=== PATIENT | female | born 1950 | race Caucasian/White ===

== ENCOUNTER 2021-09-01 10:07 | Outpatient (REF) | payer MEDICARE, OTHER, SELFPAY ==
--- NOTE | ~2021-09-01 | XR_ITS ---
EXAMINATION: XR CHEST CLINICAL INFORMATION: Cough. COMPARISON: None TECHNIQUE: 2 views of the chest were obtained. FINDINGS: The lungs are expanded with increased pulmonary vascularity but no consolidation or pleural effusion. The heart size enlarged. No gross bony abnormality seen. XR/XR chest 2V IMPRESSION: Cardiomegaly with mild pulmonary vascular congestion suspected.
[2021-09-01 11:50] LABS: Hematocrit 41.9 % (37-47); Hemoglobin 13.2 g/dl (12.0-16.0); Mean Corpuscular HGB Conc 31.5 g/dl (31.0-35.0); Mean Corpuscular Hemoglobin 27.2 pg (27.0-33.0); Mean Corpuscular Volume 86.2 fL (80-98); Mean Platelet Volume 9.9 fL (9.4-12.3); Platelet Count 314 X10*3/uL (160-400); Red Blood Count 4.86 X10*6/uL (4.20-5.50); Red Cell Distribution Width 15.3 % (11.0-16.0); White Blood Count 7.7 X10*3/uL (4.8-10.8)
[2021-09-01 12:06] LABS: Alanine Aminotransferase 8 U/L (0-31); Alkaline Phosphatase 74 U/L (39-117); Anion Gap 14 (12-20); Aspartate Amino Transferase 19 U/L (5-31); Bilirubin Total 0.4 mg/dL (0.0-1.0); Blood Urea Nitrogen 11 mg/dL (9-16); Calcium 9.7 mg/dL (8.4-10.2); Carbon Dioxide 23 mmol/L (22-29); Chloride 110 mmol/L (96-108); Cholesterol 155 mg/dL; Estimated Glomerular Filt Rate > 60; Glucose Random 80 mg/dL (60-115); HDL Cholesterol 40 mg/dL; LDL Cholesterol Calculated 87 mg/dl; Potassium 4.1 mmol/L (3.3-5.1); Sodium 143 mmol/L (135-145); Total Protein 6.8 g/dL (6.5-8.0); Triglycerides 141 mg/dL
[2021-09-01 12:19] LABS: Thyroid Stimulating Hormone 1.75 uIU/mL (0.32-4.0)
== END 2021-09-01 10:08 | disposition home or self-care (01) ==
LOC: HO.HMGCLDS 10:07
PROVIDERS: PCP Internal Medicine; Visit Provider Internal Medicine
DX: E78.2 Mixed hyperlipidemia (principal); I10 Essential (primary) hypertension; R05.9 Cough, unspecified
CPT/HCPCS: 36415; 71046; 80053; 80061; 84443; 85027

== ENCOUNTER 2021-09-14 10:51 | Outpatient (REF) | payer MEDICARE, OTHER, SELFPAY ==
[2021-09-14 14:33] LABS: Anion Gap 15 (12-20); B Type Natriuretic Peptide 356 pg/mL (<100); Blood Urea Nitrogen 13 mg/dL (9-16); Calcium 8.9 mg/dL (8.4-10.2); Carbon Dioxide 23 mmol/L (22-29); Chloride 107 mmol/L (96-108); Estimated Glomerular Filt Rate > 60; Glucose Random 82 mg/dL (60-115); Potassium 4.2 mmol/L (3.3-5.1); Sodium 141 mmol/L (135-145)
[2021-09-17 12:21] LABS: Magnesium, RBC 5.6 mg/dL (4.0-6.4)
== END 2021-09-14 10:52 | disposition home or self-care (01) ==
LOC: HO.HMGCLDS 10:51
PROVIDERS: Absent Provider Internal Medicine; PCP Internal Medicine; Visit Provider Internal Medicine
DX: Z20.822 Contact with and (suspected) exposure to COVID-19 (principal); I10 Essential (primary) hypertension; R06.00 Dyspnea, unspecified
CPT/HCPCS: 36415; 80048; 83735; 83880; C9803; U0003; U0005

== ENCOUNTER → 2021-10-06 10:19 | Outpatient (REF) | payer MEDICARE, OTHER, SELFPAY ==
--- NOTE | 2021-10-06 10:30 | CA_ITS ---
Transthoracic Echocardiogram Patient (Last, First, Middle): Tg Luong, Gender: Female Date of : 1950 Age: 70 Procedure Date: 10/06/2021 Procedure Type: Transthoracic Echocardiogram Location: OP Height: 165.1 cm Weight: 90.27 kg BSA: 1.97 m2 Heart Rate: bpm BP: 180 / 86 mmHg Manager Business Process: MEMO Referring MD: Mann Servin MD Biomedical Electronics Technician: Jim Cantu MD Symptoms: VELEZ R06.00 Study Quality: Fair ECG Rhythm: Sinus Conclusions: - 1. Normal LV systolic function with moderate left ventricular hypertrophy with hyperdynamic LV systolic function with EF of greater than 70% with impaired relaxation filling pattern with reduced global longitudinal strain 2. Increased right ventricular size 3. Mildly dilated left atrium 4. Moderate mitral and calcification and mild mitral regurgitation 5. Moderately elevated right ventricular systolic pressure 6. Small localized pericardial effusion near the Findings Left Ventricle Normal left ventricular cavity size. There is moderately increased left ventricular wall thickness. The left ventricular systolic function is hyperdynamic. The visually estimated ejection fraction is >70%. Regional wall motion abnormalities can not be excluded duer to suboptimal endocardial definition. Spectral Doppler is indicative of an impaired relaxation filling pattern. E/E prime ratio is between 8 and 15 consistent with indeterminate filling pressures. Peak global longitudinal endocardial strain is -14% which is reduced Right Ventricle Moderately increased right ventricular cavity size. There is normal right ventricular systolic function. Atria The left atrium is mildly dilated. Interatrial shunt cannot be excluded. The right atrium is likely dilated. Aortic Valve Normal aortic valve structure and function. There is no aortic valve stenosis. There is no aortic valve regurgitation. Mitral Valve There is mild anterior and moderate posterior mitral leaflet thickening. There is moderate mitral annular calcification. There is mild mitral valve regurgitation. There is no mitral valve stenosis. Pulmonic Valve The pulmonic valve was not well visualized. Tricuspid Valve Likely normal tricuspid valve structure and function. There is mild tricuspid valve regurgitation. Moderate pulmonary hypertension is present. Great Vessels All visible segments of the aorta are normal in size. The pulmonary artery was not well visualized. Venous The inferior vena cava is normal in size and collapses greater than 50% with inspiration. Pericardium/Pleural There is a small loculated pericardial effusion overlying the left ventricle. Prior Study Comparison No prior study available for comparison. Measurements 2D Linear Measurements IVSd: 1.51 0.6-0.9/0.6-1.0 cm LVIDd: 4.36 3.9-5.3/4.2-5.9 cm LVIDd Index: 2.21 2.4-3.2/2.2-3.1 cm/m2 LVIDs: 2.59 2.0-3.6 cm LVPWd: 1.53 0.7-1.1 cm Ao Root: 3.10 2.1-3.5 cm LA Diam: 4.10 2.7-3.8/3.0-4.0 cm LAIDs Index: 2.08 1.5-2.3 cm/m2 LV Mass: 335.24 67-162/88-224 g LV Mass Index: 170.17 43-95/49-115 g/m2 LVOT Diam: 2.10 3.0+(-)1.3 cm 2D Systolic Function EF 4C: 82.70 >55% EF 2C: 49.80 >55% EF BiP: 70.50 >55% Mitral Valve MV Pk E: 0.78 MV PK A: 0.93 MV Decel Time: 114.00 E/A: 0.80 E'Lateral: 6.53 E'Medial: 4.79 E/E' Med: 16.20 E/E' Lat: 11.90 PHT: 33.00 MVA PHT: 6.67 Decel [place]ton: 6.85 Aortic Valve AoV Pk Ben: 1.09 AoV Pk Grad: 5.00 LVOT LVOT Pk Ben: 1.02 LVOT Mn Ben: 0.69 LVOT VTI: 0.24 LVOT Pk Grad: 4.00 LVOT Mn Grad: 2.00 LVOT Diam: 2.10 LVOT Area: 3.46 Diastolic Function MV Pk E: 0.78 MV Pk A: 0.93 E/A: 0.80 E'Medial: 4.79 E/E' Med: 16.20 E' Laterial: 6.53 E/E' Lat: 11.90 Right Ventricle TAPSE (mm): 1.91 Tricuspid Valve TR Pk Ben: 358.00 TR Pk Grad: 51.00 RA Press: 3.00 RVSP: 54.00 Great Vessels Aorta Ao Root-2D: 3.10 2.0-3.7 cm Ao Asc: 3.40 2.1-3.4 cm Updated in Other Vendor System with Status of Final Jim Cantu MD electronically signed on 10/06/2021 4:39:07 PM with status of Final
== END ==
LOC: HO.CARD 10:19
PROVIDERS: Visit Provider Internal Medicine
DX: R06.00 Dyspnea, unspecified (principal)
CPT/HCPCS: 93306

== ENCOUNTER 2021-10-22 13:42 | Outpatient (REF) | payer MEDICARE, OTHER, SELFPAY ==
--- NOTE | 2021-10-22 | PFT_ITS ---
FLOWS: FEV1 75% of predicted at 1.72 L. FVC 70% of predicted at 2.13 L. FEV1 to FVC ratio of 0.81. No bronchodilator response. LUNG VOLUMES: Total lung capacity 68% of predicted at 3.56 L. Residual volume 57% of predicted at 1.33 L. Slow vital capacity 76% of predicted at 2.23 L. Expiratory reserve volume 69% of predicted at 0.48 L. Diffusion capacity is moderately decreased, diffusion capacity adjust to being mildly decreased after correction for alveolar ventilation. IMPRESSION: Moderate restrictive ventilatory defect with no bronchodilator response. Decreased diffusion capacity together with underlying restrictive lung physiology suggests underlying pulmonary parenchymal disease. Clinical correlation is advised. Deyvi Joshua MD AP/MODL / [id number] MTDD
== END 2021-10-22 13:43 | disposition home or self-care (01) ==
LOC: HO.RESP 13:42
PROVIDERS: PCP Internal Medicine; Visit Provider Internal Medicine
DX: R06.00 Dyspnea, unspecified (principal)
CPT/HCPCS: 94060; 94727; 94729

== ENCOUNTER 2021-11-24 09:19 | Outpatient (REF) | payer MEDICARE, OTHER, SELFPAY ==
--- NOTE | ~2021-11-24 | CT_ITS ---
EXAMINATION: CT CHEST WITHOUT CONTRAST CLINICAL INFORMATION: Interstitial pulmonary disease. COMPARISON: Chest x-ray 09/01/2021 TECHNIQUE: Multidetector volumetric CT imaging of the chest was done. Axial MIP volume rendering provided. Sagittal and coronal reformatted images were obtained. This CT examination was performed using dose optimization techniques as appropriate, variously including the following: *Automated exposure control *Adjustment of mA and/or kV according to patient size (this includes techniques or standardized protocols for targeted exams where dose is matched to indication/reason for exam; i.e. extremities or head) *Use of iterative reconstruction technique DLP: 175 mGy-cm FINDINGS: The exam is limited due to patient breathing artifact throughout the exam. DRIVER MEDIC: Hyperinflated lungs. LUNGS: The lungs are well expanded and clear of acute pneumonic process. There is patchy density in the superior segment and posterior segment of the right lower lobe, likely focal atelectasis. There is no pulmonary nodule, mass or consolidation. No interstitial thickening, bronchiectasis or peribronchial thickening. Minimal dependent atelectasis is seen at the left lung base as well. MEDIASTINUM: Heart size is borderline enlarged. There are coronary artery calcifications. There is no pericardial effusion. Central trachea and the bronchi are widely patent. The thyroid lobes are symmetrical and unremarkable. No abnormal-sized mediastinal or hilar lymph nodes are seen. PLEURA: There is no pleural effusion. No pleural mass or thickening. AXILLAE: Small shotty lymph nodes are seen in the bilateral axillae. The largest lymph node measures 6 mm and less. UPPER ABDOMEN: Visualized liver, spleen, pancreas, bilateral adrenal glands and gallbladder appear unremarkable. OSSEOUS STRUCTURES: There is mild ventral spondylosis of the lower dorsal spine. No aggressive lytic or sclerotic process is seen. CT/CT chest wo con IMPRESSION: Limited exam due to patient breathing throughout the exam. There is dependent bibasilar atelectasis. No pulmonary nodule, mass, consolidation or interstitial thickening seen. Fleischner guidelines were followed.
== END 2021-11-24 09:20 | disposition home or self-care (01) ==
LOC: HO.CT 09:19
PROVIDERS: Visit Provider Internal Medicine
DX: J84.9 Interstitial pulmonary disease, unspecified (principal)
CPT/HCPCS: 71250

== ENCOUNTER → 2021-12-17 09:44 | Outpatient (BNVA) | payer MEDICARE, OTHER, SELFPAY | PROVIDERS: PCP Internal Medicine; Visit Provider Internal Medicine | DX: J98.4 Other disorders of lung (principal); R06.00 Dyspnea, unspecified; F17.210 Nicotine dependence, cigarettes, uncomplicated | CPT/HCPCS: 99202 ==

== ENCOUNTER → 2022-02-15 13:23 | Outpatient (BNVA) | payer MEDICARE, OTHER, SELFPAY | PROVIDERS: PCP Internal Medicine; Visit Provider Internal Medicine | DX: J98.4 Other disorders of lung (principal); R06.00 Dyspnea, unspecified; F17.210 Nicotine dependence, cigarettes, uncomplicated | CPT/HCPCS: 99212 ==

== ENCOUNTER 2022-03-24 08:58 | Outpatient (REF) | payer MEDICARE, OTHER, SELFPAY ==
[2022-03-24 11:40] LABS: MANUAL DIFF FLAG NO
[2022-03-24 11:45] LABS: Basophils Absolute Auto 0.1 X10*3/uL (0.0-0.2); Basophils Percent Auto 0.7 % (0-2); Eosinophils Absolute Auto 0.5 X10*3/uL (0.0-0.4); Eosinophils Percent Auto 5.2 % (0-4); Hematocrit 38.3 % (37.0-47.0); Hemoglobin 11.9 g/dl (12.0-16.0); Imm Gran Abs Auto 0.04 X10*3/uL (0.00-0.03); Imm Gran Pct Auto 0.5 % (0.0-0.4); Lymphocytes Absolute Auto 2.2 X10*3/uL (1.2-4.9); Lymphocytes Percent Auto 24.8 % (20-40); Mean Corpuscular HGB Conc 31.1 g/dl (31.0-35.0); Mean Corpuscular Hemoglobin 26.9 pg (27.0-33.0); Mean Corpuscular Volume 86.7 fL (80.0-98.0); Mean Platelet Volume 10.3 fL (9.4-12.3); Monocytes Absolute Auto 0.9 X10*3/uL (0.1-1.2); Monocytes Percent Auto 10.3 % (2-11); Neutrophils Absolute Auto 5.1 x10*3/uL (2.0-8.3); Neutrophils Percent Auto 58.5 % (45-73); Platelet Count 278 X10*3/uL (160-400); Red Blood Count 4.42 X10*6/uL (4.20-5.50); Red Cell Distribution Width 13.9 % (11.0-16.0); White Blood Count 8.7 X10*3/uL (4.8-10.8)
[2022-03-24 11:58] LABS: Alanine Aminotransferase 11 U/L (0-31); Albumin Level 3.9 g/dL (3.5-5.0); Alkaline Phosphatase 70 U/L (39-117); Anion Gap 14 (12-20); Aspartate Amino Transferase 18 U/L (5-31); Bilirubin Total 0.3 mg/dL (0.0-1.0); Blood Urea Nitrogen 17 mg/dL (9-16); Calcium 9.8 mg/dL (8.4-10.2); Carbon Dioxide 25 mmol/L (22-29); Chloride 106 mmol/L (96-108); Cholesterol 158 mg/dL; Estimated Glomerular Filt Rate 40; Glucose Random 95 mg/dL (60-115); HDL Cholesterol 46 mg/dL; LDL Cholesterol Calculated 91 mg/dl; Magnesium 1.9 mg/dL (1.6-2.6); Potassium 4.6 mmol/L (3.3-5.1); Sodium 140 mmol/L (135-145); Total Protein 6.5 g/dL (6.5-8.0); Triglycerides 108 mg/dL
[2022-03-24 12:21] LABS: Thyroid Stimulating Hormone 3.55 uIU/mL (0.32-4.0)
== END 2022-03-24 08:59 | disposition home or self-care (01) ==
LOC: HO.HMGCLDS 08:58
PROVIDERS: PCP Internal Medicine; Visit Provider Internal Medicine
DX: E78.2 Mixed hyperlipidemia (principal); I10 Essential (primary) hypertension
CPT/HCPCS: 36415; 80053; 80061; 83735; 84443; 85025

== ENCOUNTER 2022-05-11 10:20 | Outpatient (REF) | payer MEDICARE, OTHER, SELFPAY ==
[2022-05-11 11:39] LABS: Anion Gap 12 (12-20); Blood Urea Nitrogen 21 mg/dL (9-16); Calcium 9.2 mg/dL (8.4-10.2); Carbon Dioxide 23 mmol/L (22-29); Chloride 105 mmol/L (96-108); Estimated Glomerular Filt Rate 35; Glucose Random 113 mg/dL (60-115); Potassium 4.4 mmol/L (3.3-5.1); Sodium 136 mmol/L (135-145)
== END 2022-05-11 10:21 | disposition home or self-care (01) ==
LOC: HO.LAB 10:20
PROVIDERS: PCP Internal Medicine; Visit Provider Internal Medicine
DX: I12.9 Hypertensive chronic kidney disease with stage 1 through stage 4 chronic kidney disease, or unspecified chronic kidney disease (principal); N18.30 Chronic kidney disease, stage 3 unspecified
CPT/HCPCS: 36415; 80048

== ENCOUNTER 2022-06-16 15:47 | Outpatient (REF) | payer MEDICARE, OTHER, SELFPAY ==
--- NOTE | ~2022-06-16 | US_ITS ---
EXAMINATION: US RETROPERITONEAL COMPLETE (RENAL) CLINICAL INFORMATION: Hypertension. Chronic renal failure. COMPARISON: None TECHNIQUE: Real-time imaging of the kidneys and bladder. FINDINGS: RIGHT KIDNEY: 9.0 x 4.3 x 5.2 cm (SAG x AP x TRV). No hydronephrosis or caliectasis. The kidney is normal in size, contour, and echogenicity. Renal cortical thickness is normal. No focal parenchymal lesion. There are scattered specular echoes in the renal sinus and parenchyma without twinkling artifact or shadowing to suggest nonobstructing calculi. LEFT KIDNEY: 9.5 x 4.9 x 4.5 cm (SAG x AP x TRV). No hydronephrosis or caliectasis. The kidney is normal in size, contour, and echogenicity. Renal cortical thickness is normal. No focal parenchymal lesion. There are scattered specular echoes in the renal sinus and parenchyma without twinkling artifact or shadowing to suggest nonobstructing calculi. BLADDER: Bladder is distended symmetrically. There is no focal wall thickening or diverticulum. No bladder calculus or debris at bladder base. Bilateral ureteral jets are demonstrated. Prevoid bladder volume 151 mL. No post void image obtained. US/US retroperitoneal comp IMPRESSION: -No hydronephrosis or caliectasis. -Kidneys normal in size with normal renal parenchymal thickness and echogenicity.
== END 2022-06-16 15:48 | disposition home or self-care (01) ==
LOC: HO.US 15:47
PROVIDERS: Visit Provider Internal Medicine
DX: N18.32 Chronic kidney disease, stage 3b (principal)
CPT/HCPCS: 76770

== ENCOUNTER 2022-06-29 10:11 | Outpatient (REF) | payer MEDICARE, OTHER, SELFPAY ==
[2022-06-29 11:06] LABS: Anion Gap 15 (12-20); Blood Urea Nitrogen 18 mg/dL (9-16); Carbon Dioxide 24 mmol/L (22-29); Chloride 101 mmol/L (96-108); Estimated Glomerular Filt Rate 44; Glucose Random 116 mg/dL (60-115); Potassium 4.5 mmol/L (3.3-5.1); Sodium 135 mmol/L (135-145)
== END 2022-06-29 10:12 | disposition home or self-care (01) ==
LOC: HO.LAB 10:11
PROVIDERS: PCP Internal Medicine; Visit Provider Internal Medicine
DX: I12.9 Hypertensive chronic kidney disease with stage 1 through stage 4 chronic kidney disease, or unspecified chronic kidney disease (principal); N18.30 Chronic kidney disease, stage 3 unspecified
CPT/HCPCS: 36415; 80048

== ENCOUNTER 2022-09-14 10:09 | Outpatient (REF) | payer MEDICARE, OTHER, SELFPAY ==
[2022-09-14 10:34] LABS: MANUAL DIFF FLAG NO
[2022-09-14 11:04] LABS: Basophils Percent Auto 0.4 % (0-2); Eosinophils Absolute Auto 0.3 X10*3/uL (0.0-0.4); Eosinophils Percent Auto 3.3 % (0-4); Hematocrit 34.7 % (37.0-47.0); Hemoglobin 10.8 g/dl (12.0-16.0); Imm Gran Abs Auto 0.04 X10*3/uL (0.00-0.03); Imm Gran Pct Auto 0.5 % (0.0-0.4); Lymphocytes Absolute Auto 1.6 X10*3/uL (1.2-4.9); Lymphocytes Percent Auto 20.7 % (20-40); Mean Corpuscular HGB Conc 31.1 g/dl (31.0-35.0); Mean Corpuscular Hemoglobin 25.2 pg (27.0-33.0); Mean Corpuscular Volume 81.1 fL (80.0-98.0); Mean Platelet Volume 9.7 fL (9.4-12.3); Monocytes Absolute Auto 0.8 X10*3/uL (0.1-1.2); Monocytes Percent Auto 9.7 % (2-11); Neutrophils Absolute Auto 5.2 x10*3/uL (2.0-8.3); Neutrophils Percent Auto 65.4 % (45-73); Platelet Count 254 X10*3/uL (160-400); Red Blood Count 4.28 X10*6/uL (4.20-5.50); Red Cell Distribution Width 15.8 % (11.0-16.0); White Blood Count 7.9 X10*3/uL (4.8-10.8)
[2022-09-14 11:37] LABS: Alanine Aminotransferase 11 U/L (0-31); Albumin Level 3.9 g/dL (3.5-5.0); Alkaline Phosphatase 79 U/L (39-117); Anion Gap 16 (12-20); Aspartate Amino Transferase 18 U/L (5-31); Bilirubin Total 0.3 mg/dL (0.0-1.0); Blood Urea Nitrogen 15 mg/dL (9-16); Calcium 9.3 mg/dL (8.4-10.2); Carbon Dioxide 22 mmol/L (22-29); Chloride 107 mmol/L (96-108); Estimated Glomerular Filt Rate 45; Glucose Random 92 mg/dL (60-115); Potassium 4.4 mmol/L (3.3-5.1); Sodium 141 mmol/L (135-145); Total Protein 6.5 g/dL (6.5-8.0)
== END 2022-09-14 10:10 | disposition home or self-care (01) ==
LOC: HO.LAB 10:09
PROVIDERS: PCP Internal Medicine; Visit Provider Internal Medicine
DX: I12.9 Hypertensive chronic kidney disease with stage 1 through stage 4 chronic kidney disease, or unspecified chronic kidney disease (principal); N18.32 Chronic kidney disease, stage 3b; K21.9 Gastro-esophageal reflux disease without esophagitis; M15.9 Polyosteoarthritis, unspecified
CPT/HCPCS: 36415; 80053; 85025

== ENCOUNTER 2022-10-01 10:11 | Outpatient (REF) | payer MEDICARE, OTHER, SELFPAY ==
[2022-10-01 11:34] LABS: MANUAL DIFF FLAG NO
[2022-10-01 11:45] LABS: Basophils Absolute Auto 0.1 X10*3/uL (0.0-0.2); Basophils Percent Auto 0.7 % (0-2); Eosinophils Absolute Auto 0.3 X10*3/uL (0.0-0.4); Eosinophils Percent Auto 3.9 % (0-4); Imm Gran Abs Auto 0.03 X10*3/uL (0.00-0.03); Imm Gran Pct Auto 0.4 % (0.0-0.4); Immature Retic Fraction 23.5 % (3.0-15.9); Lymphocytes Absolute Auto 1.9 X10*3/uL (1.2-4.9); Lymphocytes Percent Auto 25.3 % (20-40); Mean Corpuscular HGB Conc 30.6 g/dl (31.0-35.0); Mean Corpuscular Hemoglobin 24.8 pg (27.0-33.0); Mean Corpuscular Volume 81.3 fL (80.0-98.0); Mean Platelet Volume 9.7 fL (9.4-12.3); Monocytes Absolute Auto 0.7 X10*3/uL (0.1-1.2); Monocytes Percent Auto 9.5 % (2-11); Neutrophils Absolute Auto 4.5 x10*3/uL (2.0-8.3); Neutrophils Percent Auto 60.2 % (45-73); Platelet Count 272 X10*3/uL (160-400); Red Blood Count 4.43 X10*6/uL (4.20-5.50); Red Cell Distribution Width 15.7 % (11.0-16.0); Retic HGB Equivalent 27.8 pg (30.0-35.0); Reticulocyte Percent 2.1 % (0.5-1.8); Reticulocytes Absolute 0.092 X10*6/uL (0.026-0.095); White Blood Count 7.5 X10*3/uL (4.8-10.8)
[2022-10-01 12:01] LABS: Iron 41 mcg/dL (30-160); Percent Iron Saturation 13 % (15-50); Total Iron Binding Capacity 327 mcg/dL (228-428); Unsaturated Iron Binding 286 ug/dL
[2022-10-01 12:17] LABS: Ferritin 19 ng/mL (10-250)
[2022-10-01 13:47] LABS: Vitamin B12 204 pg/mL (200-900)
== END 2022-10-01 10:12 | disposition home or self-care (01) ==
LOC: HO.HMGCLDS 10:11
PROVIDERS: PCP Internal Medicine; Visit Provider Internal Medicine
DX: D64.9 Anemia, unspecified (principal)
CPT/HCPCS: 36415; 82607; 82728; 82746; 83540; 85025; 85045

== ENCOUNTER 2022-12-01 09:06 | Outpatient (REF) | payer MEDICARE, OTHER, SELFPAY ==
[2022-12-01 11:43] LABS: MANUAL DIFF FLAG NO
[2022-12-01 11:54] LABS: Basophils Percent Auto 0.3 % (0-2); Eosinophils Absolute Auto 0.3 X10*3/uL (0.0-0.4); Eosinophils Percent Auto 3.9 % (0-4); Hematocrit 37.6 % (37.0-47.0); Hemoglobin 11.7 g/dl (12.0-16.0); Imm Gran Abs Auto 0.02 X10*3/uL (0.00-0.03); Imm Gran Pct Auto 0.3 % (0.0-0.4); Lymphocytes Absolute Auto 1.9 X10*3/uL (1.2-4.9); Lymphocytes Percent Auto 24.8 % (20-40); Mean Corpuscular HGB Conc 31.1 g/dl (31.0-35.0); Mean Corpuscular Hemoglobin 25.3 pg (27.0-33.0); Mean Corpuscular Volume 81.4 fL (80.0-98.0); Monocytes Absolute Auto 0.7 X10*3/uL (0.1-1.2); Monocytes Percent Auto 9.3 % (2-11); Neutrophils Absolute Auto 4.6 x10*3/uL (2.0-8.3); Neutrophils Percent Auto 61.4 % (45-73); Platelet Count 242 X10*3/uL (160-400); Red Blood Count 4.62 X10*6/uL (4.20-5.50); Red Cell Distribution Width 16.9 % (11.0-16.0); White Blood Count 7.5 X10*3/uL (4.8-10.8)
[2022-12-01 12:32] LABS: Ferritin 18 ng/mL (10-250); Vitamin B12 779 pg/mL (200-900)
[2022-12-05 15:53] LABS: Methylmalonic Acid 257 nmol/L (87-318)
== END 2022-12-01 09:07 | disposition home or self-care (01) ==
LOC: HO.HMGCLDS 09:06
PROVIDERS: PCP Internal Medicine; Visit Provider Internal Medicine
DX: D64.9 Anemia, unspecified (principal)
CPT/HCPCS: 36415; 82607; 82728; 83921; 85025

== ENCOUNTER 2023-07-12 10:09 | Outpatient (REF) | payer MEDICARE, OTHER, SELFPAY ==
[2023-07-12 11:01] LABS: Anion Gap 15 (12-20); Blood Urea Nitrogen 19 mg/dL (9-16); Calcium 9.5 mg/dL (8.4-10.2); Carbon Dioxide 20 mmol/L (22-29); Chloride 98 mmol/L (96-108); Estimated Glomerular Filt Rate 40; Glucose Random 130 mg/dL (60-115); Potassium 4.8 mmol/L (3.3-5.1); Sodium 128 mmol/L (135-145)
== END 2023-07-12 10:10 | disposition home or self-care (01) ==
LOC: HO.LAB 10:09
PROVIDERS: PCP Internal Medicine; Visit Provider Internal Medicine
DX: I10 Essential (primary) hypertension (principal)
CPT/HCPCS: 36415; 80048

== ENCOUNTER 2023-07-19 12:31 | Outpatient (REF) | payer MEDICARE, OTHER, SELFPAY ==
[2023-07-19 16:43] LABS: Anion Gap 10 (12-20); Blood Urea Nitrogen 28 mg/dL (9-16); Calcium 9.8 mg/dL (8.4-10.2); Carbon Dioxide 22 mmol/L (22-29); Chloride 102 mmol/L (96-108); Estimated Glomerular Filt Rate 37; Glucose Random 72 mg/dL (60-115); Potassium 4.6 mmol/L (3.3-5.1); Sodium 129 mmol/L (135-145)
== END 2023-07-19 12:32 | disposition home or self-care (01) ==
LOC: HO.HMGCLDS 12:31
PROVIDERS: PCP Internal Medicine; Visit Provider Nurse Practitioner Family
DX: R79.89 Other specified abnormal findings of blood chemistry (principal)
CPT/HCPCS: 36415; 80048

== ENCOUNTER 2023-09-02 18:03 | Inpatient (IN) | payer MEDICARE, OTHER, SELFPAY ==
--- NOTE | ~2023-09-02 | US_ITS ---
EXAMINATION: US RETROPERITONEAL LIMITED (RENAL ONLY) CLINICAL INFORMATION: Evaluate for obstruction. COMPARISON: None available. TECHNIQUE: Real-time grayscale and color images of the right kidney were obtained. Technical limitation secondary to patient breathing. FINDINGS: RIGHT KIDNEY: 9.2 x 4.6 x 4.9 cm (SAG x AP x TRV). The kidney is normal in size, contour, and echogenicity. Renal cortical thickness is normal. No calculi or focal parenchymal lesions. No hydronephrosis. LEFT KIDNEY: 10.7 x 4.8 x 4.2 cm (SAG x AP x TRV). The kidney is normal in size, contour, and echogenicity. Renal cortical thickness is normal. No calculi or focal parenchymal lesions. No hydronephrosis. ADDITIONAL FINDINGS: Mildly prominent gallbladder without calculus. US/US renal BI IMPRESSION: 1. No nephrolithiasis or hydronephrosis. 2. Mildly prominent gallbladder without calculus.
--- NOTE | ~2023-09-02 | XR_ITS ---
EXAMINATION: XR CHEST CLINICAL INFORMATION: Shortness of breath COMPARISON: CT chest 09/03/2023. Radiograph chest 1020 22,023. TECHNIQUE: Frontal view of the chest was obtained. FINDINGS: There is no gross pneumothorax. Redemonstration of enlarged cardiac silhouette. Trace left pleural effusion again seen. Diffuse interstitial opacities and prominence of the vasculature similar in appearance, possibly representing edema, although pneumonia could also contribute to this appearance. XR/XR chest 1V IMPRESSION: Trace left pleural effusion again seen. Diffuse interstitial opacities and prominence of the vasculature similar in appearance, possibly representing edema, although pneumonia could also contribute to this appearance.
--- NOTE | ~2023-09-02 | XR_ITS ---
EXAMINATION: XR CHEST CLINICAL INFORMATION: Shortness of breath COMPARISON: 09/01/2021 TECHNIQUE: Frontal view of the chest was obtained. FINDINGS: Moderate cardiomegaly with changes of mild CHF. Trace pleural effusion at the left base suspected. No focal infiltrate. XR/XR chest 1V IMPRESSION: Mild CHF.
--- NOTE | ~2023-09-02 | CT_ITS ---
EXAMINATION: CT CHEST WITHOUT CONTRAST CLINICAL INFORMATION: Shortness of breath. Covid positive. COMPARISON: Portions of a previous CT 11/24/21 TECHNIQUE: Multidetector volumetric CT imaging of the chest was done. Axial MIP volume rendering provided. Sagittal and coronal reformatted images were obtained. This CT examination was performed using dose optimization techniques as appropriate, variously including the following: *Automated exposure control *Adjustment of mA and/or kV according to patient size (this includes techniques or standardized protocols for targeted exams where dose is matched to indication/reason for exam; i.e. extremities or head) *Use of iterative reconstruction technique The technologist indicates the patient was unable to suspend respirations DLP: 324 mGy-cm FINDINGS: There is significant motion artifact which limits detail. RAILROAD WORKER: Multiple devices overlie the patient. Prominent cardiac silhouette. Diffuse pulmonary opacities. LUNGS: No large abnormality in the central airways. Motion precludes detailed assessment of the lungs. There are lung base abnormalities. There are some juxtapleural opacities in the superior segment of the right lower lobe. There are a few reticular and polygonal juxtapleural opacities in the posterior upper lung zones. Although artifact limits detail there may be slight interval worsening when compared to 11/24/21 MEDIASTINUM: No measurably enlarged lymph nodes. Probable small hiatal hernia. The heart is enlarged. There is at least a small amount of pericardial fluid. This measures 1.7 cm transversely posterior to left ventricle. This has increased when compared to 11/24/21. The main pulmonary artery is mildly dilated. Previously there was a fairly well-defined oval fluid attenuating structure adjacent to lower right side of the mediastinum. This is no longer well defined. Correlate with any intervention. CORONARY ARTERY CALCIFICATION: Marked coronary calcification or coronary stents. PLEURA: There is some fibrocalcific change in the right apex. There is no significant pleural fluid. There is no pneumothorax AXILLA: No lymphadenopathy. UPPER ABDOMEN: Motion limits assessment. Severe arterial calcification in the visualized upper abdomen and celiac axis. OSSEOUS STRUCTURES: Limited bone detail CT/CT chest wo IV con IMPRESSION: Limited study. Scattered primarily juxtapleural bilateral pulmonary opacities. Motion limits assessment but there may be slight interval worsening. Increasing but still relatively small pericardial fluid collection. Fleischner guidelines were followed.
[2023-09-02 18:09] VITALS: BP 129/69; PULSE 107; RESP 42; TEMP 38; O2SAT 89; BMI 34.1
--- NOTE | 2023-09-02 18:10 | ED_ITS ---
HPI - SOB/Dyspnea General Chief Complaint: Dyspnea Stated Complaint: SOB Time Seen by Provider: 09/02/23 18:05 Source: patient Mode of arrival: EMS Limitations: no limitations History of Present Illness HPI Narrative: Patient is 72 years old with history of smoking, restrictive lung disease and exertional dyspnea normal LV functions in the echo 10/04 comes here for increased shortness of breath since yesterday got worse prior to patient was tachypneic saturating 90% at room air placed on CPAP by EMS denies any chest pain/palpitation patient was placed on BiPAP on arrival now she is on 2 L saturating 96% at room patient noticed she is making less urine for last few days patient been having dry cough for last few days Related Data Home Medications Medication Instructions Recorded Confirmed alprazolam 1 mg tablet 1 mg PO BEDTIME PRN Anxiety 12/17/21 09/02/23 doxazosin 2 mg tablet 2 mg PO BID 12/17/21 09/02/23 furosemide 20 mg tablet 20 mg PO DAILY 12/17/21 09/02/23 metoprolol tartrate 50 mg tablet 50 mg PO BID 12/17/21 09/02/23 olmesartan 40 mg tablet 40 mg PO DAILY 12/17/21 09/02/23 albuterol sulfate 90 mcg/actuation 2 puff inhalation Q4H PRN wheezing 09/02/23 09/02/23 aerosol inhaler cyanocobalamin (vitamin B-12) 1,000 mcg PO DAILY 09/02/23 09/02/23 1,000 mcg tablet hydralazine 10 mg tablet 10 mg PO TID 09/02/23 09/02/23 ketoconazole 2 % topical cream 1 appl topical BID 09/02/23 09/02/23 nifedipine 60 mg tablet,extended 60 mg PO DAILY 09/02/23 09/02/23 release 24 hr Allergies Allergy/AdvReac Type Severity Reaction Status Date / Time pollen extracts Allergy Mild mild Verified 02/15/22 13:52 [facility] Past Medical History Medical History Exertional dyspnea Restrictive lung disease Smoker Social History Social History Alcohol intake: never Patient Tobacco Use Status: Current everyday Tobacco user Cigarette Packs Per Day: 0.5 Cigarettes Per Day: 4 Years Smoked: 53 Smoked in Last 30 Days: Yes Use of substances other than those prescribed or required for medical reasons: No Advance Directives: No Physical Exam 2 Vital Signs: Vital Signs: Last Vital Signs Temp 98.9 F 09/02/23 22:43 Pulse 100 09/02/23 22:43 Resp 18 09/02/23 22:43 BP 120/60 09/02/23 22:43 Pulse Ox 98 09/02/23 22:43 O2 Del Method Nasal Cannula 09/02/23 22:43 O2 Flow Rate 2 09/02/23 22:43 BMI result Body Mass Index 34.1 Appearance: Alert. Oriented X3. Tachypneic moderate short of breath Eyes: PERRLA, No Nystagmus ENT: Pharynx normal. Oral Mucosa moist Neck: Normal inspection. Neck supple. CVS: Normal heart rate and rhythm. Pulses normal. Respiratory: Mod respiratory distress. Equal air entry bilateral, bilateral rhonchi with rales Abdomen: Soft and nontender. Bowel sounds are present, no mass palpable, no CVA tenderness Skin: Skin warm and dry. Normal skin color. Normal skin turgor. Extremities: Trace lower extremity edema. No calf tenderness Neuro: Oriented X 3. No motor deficit. No sensory deficit.No cerebellar signs , cranial nerves II-XII intact Medications Administered Generic Name Dose Route Start Last Admin Trade Name Freq PRN Reason Stop Dose Admin Heparin Sodium/Sodium Chloride 25,000 unit in 250 mls @ 0 mls/hr 09/02/23 21:30 09/02/23 21:46 Heparin Sodium,Porcine/1/2ns IVCONT 14 units/kg/hr .Q0M RITESH 12.94 mls/hr Administration Protocol Per Protocol Sodium Chloride 3 ml 09/03/23 00:00 09/03/23 01:04 0.9 % Sodium Chloride Flush 3 Ml Syringe IVFLUSH 3 ml QSHIFT RITESH Administration Discontinued Medications Generic Name Dose Route Start Last Admin Trade Name Freq PRN Reason Stop Dose Admin Aspirin 81 mg 09/02/23 20:36 09/02/23 21:14 Aspirin Enteric Coated 81 Mg Tablet.Dr PO 09/02/23 20:37 81 mg ONCE ONE Administration Atorvastatin Calcium 80 mg 09/02/23 20:36 09/02/23 21:14 Atorvastatin Calcium 80 Mg Tablet PO 09/02/23 20:37 80 mg ONCE ONE Administration Furosemide 20 mg 09/02/23 18:21 09/02/23 18:39 Furosemide 20 Mg/2 Ml Vial IVPUSH 09/02/23 18:22 20 mg ONCE ONE Administration Protocol Furosemide 40 mg 09/02/23 19:58 09/02/23 21:14 Furosemide 40 Mg/4 Ml Vial IVPUSH 09/02/23 19:59 40 mg ONCE ONE Administration Protocol Heparin Sodium (Porcine) 5,000 unit 09/02/23 20:33 09/02/23 21:13 Heparin Sodium,Porcine 5,000 Unit/Ml Vial IVPUSH 09/02/23 20:34 5,000 unit ONCE ONE Administration Ceftriaxone Sodium 1 gm/ 50 mls @ 100 mls/hr 09/02/23 20:00 09/02/23 22:37 Sodium Chloride IV 09/02/23 20:29 Infused ONCE ONE Infusion Morphine Sulfate 2 mg 09/02/23 21:55 09/02/23 22:09 Morphine Sulfate 2 Mg/Ml Cartridge IVPUSH 09/02/23 21:56 2 mg ONCE ONE Administration Protocol Medical Decision Making Medical Decision Making [facility] Narrative: Patient with restrictive lung disease with increased shortness of breath and increased cough for last few days workup showed CHF with elevated troponin levels patient denied any chest pain EKG showed T inversion in anterior leads likely from demand ischemia/ACS also lab showed elevated WBC count etiology not very clear, begin prophylactic antibiotics blood cultures and lactic acid avoid IV fluids as patient has CHF with DKA as a primary cause of shortness of breath Case discussed Dr. 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 09/02/23 18:33 09/02/23 18:33 Labs: Lab Results 09/02/23 09/02/23 Range/Units 18:33 18:36 WBC 21.0 H (4.8-10.8) X10*3/uL RBC 4.32 (4.20-5.50) X10*6/uL Hgb 11.8 L (12.0-16.0) g/dl Hct 34.7 L (37.0-47.0) % MCV 80.3 (80.0-98.0) fL MCH 27.3 (27.0-33.0) pg MCHC 34.0 (31.0-35.0) g/dl RDW 16.4 H (11.0-16.0) % Plt Count 216 (160-400) X10*3/uL MPV 9.1 L (9.4-12.3) fL Immature Gran % (Auto) 0.6 H (0.0-0.4) % Neut % (Auto) 88.4 H (45-73) % Lymph % (Auto) 2.4 L (20-40) % [place] % (Auto) 8.4 (2-11) % Eos % (Auto) 0.1 (0-4) % Baso % (Auto) 0.1 (0-2) % Lymph # (Auto) 0.5 L (1.2-4.9) X10*3/uL [place] # (Auto) 1.8 H (0.1-1.2) X10*3/uL Eos # (Auto) 0.0 (0.0-0.4) X10*3/uL Baso # (Auto) 0.0 (0.0-0.2) X10*3/uL Abs Immat Gran (auto) 0.12 H (0.00-0.03) X10*3/uL Absolute Neuts (auto) 18.6 H (2.0-8.3) x10*3/uL Absolute Nucleated RBC 0.000 (0.0-0.012) X10*3/uL Nucleated RBC % (auto) 0.0 (0.0-0.2) /100WBC Smear Tech's Comments VERIFIED PT 14.5 H (11.1-13.3) SEC INR 1.2 H (0.9-1.1) APTT 32.0 (26.0-36.4) SEC VBG pH 7.43 (7.32-7.43) VBG pCO2 24 mmHg VBG pO2 59 mmHg VBG HCO3 16 L (22-26) mmol/L VBG O2 Saturation 85.0 % VBG Base Excess -5.6 mmol/L Sodium 130 L (135-145) mmol/L Potassium 4.4 (3.3-5.1) mmol/L Chloride 103 (96-108) mmol/L Carbon Dioxide 17 L (22-29) mmol/L Anion Gap 14 (12-20) BUN 23 H (9-16) mg/dL Creatinine 1.73 H (0.5-1.4) mg/dL Estim Creat Clear Calc 32.1 Estimated GFR 29 Random Glucose 91 (60-115) mg/dL Calcium 9.6 (8.4-10.2) mg/dL Magnesium 1.6 (1.6-2.6) mg/dL Total Bilirubin 0.5 (0.0-1.0) mg/dL AST 35 H (5-31) U/L ALT 16 (0-31) U/L Alkaline Phosphatase 58 (39-117) U/L Troponin I High Sens 1404.7 H* (<3.5-17.0) ng/L B-Natriuretic Peptide 7374 H (<100) pg/mL Total Protein 6.5 (6.5-8.0) g/dL Albumin 3.7 (3.5-5.0) g/dL Independent Interpretation I performed an independent interpretation of an: EKG Interpretation: Normal sinus rhythm heart rate 96 beats per minute with PACs T inversions in anterolateral leads unifocal PVCs no previous EKG to compare Critical Care Time Critical Care Time Critical Care Time: Yes Total Critical Care Time: 55 Attestation: The patient was critically ill with a high probability of imminent or life threatening deterioration. I spent greater than 60 minutes of discontinuous time evaluating the patient,delivering critical care at the bedside, discussing and evaluating pertinent data with consultants. Critical care time does not include time spent performing separately billable procedures or teaching. Total time spent performing critical care was 55 minutes. Discharge Plan Discharge Clinical Impression: CHF exacerbation, Restrictive lung disease, NSTEMI (non-ST elevated myocardial infarction), Acute hypoxemic respiratory failure Patient Disposition: Admitted As Inpatient
--- NOTE | 2023-09-02 18:13 | ECG_ITS ---
Test Reason : DYSPNEA Blood Pressure : / mmHG Vent. Rate : 096 BPM Atrial Rate : 096 BPM P-R Int : 148 ms QRS Dur : 084 ms QT Int : 370 ms P-R-T Axes : 053 074 -01 degrees QTc Int : 467 ms Sinus rhythm with Premature atrial complexes with Aberrant conduction Premature ventricular complexes ST & T wave abnormality, consider anterolateral ischemia Abnormal ECG No previous ECGs available Referred By: Dawson Almaraz Electronically Signed By:MISAEL SUTHERLAND MD
--- NOTE | 2023-09-02 18:14 | PC.NURSE ---
respiratory at bedside to place patient onto bipap
[2023-09-02 18:22] VITALS: PULSE 97; RESP 40; O2SAT 96
[2023-09-02 18:38] LABS: Basophils Percent Auto 0.1 % (0-2); Eosinophils Percent Auto 0.1 % (0-4); Hematocrit 34.7 % (37.0-47.0); Hemoglobin 11.8 g/dl (12.0-16.0); Imm Gran Abs Auto 0.12 X10*3/uL (0.00-0.03); Imm Gran Pct Auto 0.6 % (0.0-0.4); Lymphocytes Absolute Auto 0.5 X10*3/uL (1.2-4.9); Lymphocytes Percent Auto 2.4 % (20-40); MANUAL DIFF FLAG SCAN; Mean Corpuscular Hemoglobin 27.3 pg (27.0-33.0); Mean Corpuscular Volume 80.3 fL (80.0-98.0); Mean Platelet Volume 9.1 fL (9.4-12.3); Monocytes Absolute Auto 1.8 X10*3/uL (0.1-1.2); Monocytes Percent Auto 8.4 % (2-11); Neutrophils Absolute Auto 18.6 x10*3/uL (2.0-8.3); Neutrophils Percent Auto 88.4 % (45-73); Platelet Count 216 X10*3/uL (160-400); Red Blood Count 4.32 X10*6/uL (4.20-5.50); Red Cell Distribution Width 16.4 % (11.0-16.0); SCAN SMEAR FLAG 1
[2023-09-02] MEDS: Furosemide 20 MG/2 ML VIAL IVPUSH (18:39)
[2023-09-02 18:43] LABS: VBG Base Excess -5.6 mmol/L; VBG HCO3 16 mmol/L (22-26); VBG pCO2 24 mmHg; VBG pH 7.43 (7.32-7.43); VBG pO2 59 mmHg
[2023-09-02 18:43] LABS: Venous Blood Gas Refer to POC result
[2023-09-02 18:44] LABS: INTERNATIONAL NORM RATIO 1.2 (0.9-1.1); Prothrombin Time 14.5 SEC (11.1-13.3)
[2023-09-02 18:54] LABS: Alanine Aminotransferase 16 U/L (0-31); Albumin Level 3.7 g/dL (3.5-5.0); Alkaline Phosphatase 58 U/L (39-117); Anion Gap 14 (12-20); Aspartate Amino Transferase 35 U/L (5-31); Bilirubin Total 0.5 mg/dL (0.0-1.0); Blood Urea Nitrogen 23 mg/dL (9-16); Calcium 9.6 mg/dL (8.4-10.2); Carbon Dioxide 17 mmol/L (22-29); Chloride 103 mmol/L (96-108); Creatinine Clr Calc Pharmacy 32.1; Estimated Glomerular Filt Rate 29; Glucose Random 91 mg/dL (60-115); Magnesium 1.6 mg/dL (1.6-2.6); Potassium 4.4 mmol/L (3.3-5.1); Sodium 130 mmol/L (135-145); Total Protein 6.5 g/dL (6.5-8.0)
[2023-09-02 19:06] LABS: Troponin-I High Sensitivity 1404.7 ng/L (<3.5-17.0)
[2023-09-02 19:21] LABS: B Type Natriuretic Peptide 7374 pg/mL (<100)
[2023-09-02 20:13] LABS: SLIDE REVIEW VERIFIED
--- NOTE | 2023-09-02 20:24 | P.HPHOSP_ITS ---
History of Present Illness Date of Service: 09/02/23 Chief Complaint: Dyspnea This is a 72-year-old female with pertinent history of restrictive lung disease, essential hypertension, gastroesophageal reflux disease who presents to the emergency department for evaluation of dyspnea. Patient states she has been having shortness of breath for the last 3-4 days but her dyspnea worsened 1 day prior to presentation. It is worse with ambulation. Also admits orthopnea. Unclear PND. No history of heart failure. Patient states that people around her have tested positive for COVID-19. She denies fever or chills. Minimal nonproductive cough. Patient was placed on NIV by EMS and brought to the ER. No chest discomfort, palpitations, abdominal pain, changes in urinary or bowel habits. In the emergency department, patient requiring supplemental oxygen and found to have pulmonary edema with elevated BNP. Troponin was found to be elevated and Cardiology was consulted Review of Systems 2 Constitutional: Constitutional: Reports fatigue and Reports lethargy Cardiovascular: Cardiovascular: Reports dyspnea on exertion and Reports orthopnea Respiratory: Respiratory: Reports cough and Reports dyspnea on exertion Gastrointestinal: Gastrointestinal: Reports no additional gastrointestinal complaints Genitourinary: Genitourinary: Reports no additional female genitourinary complaints Endocrine: Endocrine: Reports fatigue PMFSH Medical History Exertional dyspnea Restrictive lung disease Smoker Pertinent family history: No family history of early CAD Social History Patient Tobacco Use Status: Current everyday Tobacco user Cigarette Packs Per Day: 0.5 Cigarettes Per Day: 4 Years Smoked: 53 Advance Directives: No Meds Allergies Allergy/AdvReac Type Severity Reaction Status Date / Time pollen extracts Allergy Mild mild Verified 02/15/22 13:52 Active Medications: Current Medications Ceftriaxone Sodium 1 gm/ (Sodium Chloride) 50 mls @ 100 mls/hr IV ONCE ONE Stop: 09/02/23 20:29 Home Medications Medication Instructions Recorded Confirmed Last Taken Type alprazolam 1 mg tablet 1 mg PO DAILY PRN 12/17/21 Unknown History ascorbic acid (vitamin C) 500 mg 500 mg PO 12/17/21 Unknown History capsule cholecalciferol (vitamin D3) 25 25 mcg PO DAILY 12/17/21 Unknown History mcg (1,000 unit) capsule doxazosin 2 mg tablet 2 mg PO DAILY 12/17/21 Unknown History furosemide 20 mg tablet 20 mg PO DAILY 12/17/21 Unknown History loratadine 10 mg tablet (Allergy 10 mg PO DAILY 12/17/21 Unknown History Relief (loratadine)) losartan 100 mg tablet 100 mg PO DAILY 12/17/21 Unknown History metoprolol tartrate 50 mg tablet 50 mg PO BID 12/17/21 Unknown History olmesartan 40 mg tablet 40 mg PO DAILY 12/17/21 Unknown History omeprazole 20 mg capsule,delayed 20 mg PO DAILY 12/17/21 Unknown History release verapamil 240 mg tablet,extended 240 mg PO DAILY 12/17/21 Unknown History release ipratropium bromide 17 2 puff inhalation .daily prn 02/15/22 Unknown History mcg/actuation HFA aerosol inhaler (Atrovent HFA) Physical Exam 2 Vital Signs and Narrative: Vital Signs: Last Vital Signs Temp 100.4 F 09/02/23 18:09 Pulse 107 H 09/02/23 18:09 Resp 40 H 09/02/23 18:22 BP 129/69 09/02/23 18:09 Pulse Ox 89 L 09/02/23 18:09 O2 Del Method Room Air 09/02/23 18:09 BMI result Body Mass Index 34.1 Elderly female lying in bed in mild distress on supplemental oxygen Neck supple, + JVD Regular rate and rhythm, S1-S2 heard Bilateral crackles appreciated Abdomen soft nontender, no guarding, no rigidity Patient is awake, alert and oriented to self, place, time and person ; no focal motor deficit Psych: Normal mood Bilateral pedal edema Results Labs 09/02/23 18:33 09/02/23 18:33 Labs: Laboratory Results - last 24 hr 09/02/23 09/02/23 18:33 18:36 MCV 80.3 MCH 27.3 MCHC 34.0 RDW 16.4 H Plt Count 216 MPV 9.1 L Immature Gran % (Auto) 0.6 H Neut % (Auto) 88.4 H Lymph % (Auto) 2.4 L [place] % (Auto) 8.4 Eos % (Auto) 0.1 Baso % (Auto) 0.1 Lymph # (Auto) 0.5 L [place] # (Auto) 1.8 H Eos # (Auto) 0.0 Baso # (Auto) 0.0 Abs Immat Gran (auto) 0.12 H Absolute Neuts (auto) 18.6 H Absolute Nucleated RBC 0.000 Nucleated RBC % (auto) 0.0 Smear Tech's Comments VERIFIED PT 14.5 H INR 1.2 H VBG pH 7.43 VBG pCO2 24 VBG pO2 59 VBG HCO3 16 L VBG O2 Saturation 85.0 VBG Base Excess -5.6 Anion Gap 14 Estim Creat Clear Calc 32.1 Estimated GFR 29 Random Glucose 91 Calcium 9.6 Magnesium 1.6 Total Bilirubin 0.5 AST 35 H ALT 16 Alkaline Phosphatase 58 B-Natriuretic Peptide 7374 H Total Protein 6.5 Albumin 3.7 Imaging Radiologist's Impressions: Impressions Chest X-Ray 09/02/23 19:24 IMPRESSION: Mild CHF. Assessment and Plan (1) CHF exacerbation: Status: Acute (2) NSTEMI (non-ST elevated myocardial infarction): Status: Acute Plan This is a 72-year-old female with pertinent history of restrictive lung disease, essential hypertension, gastroesophageal reflux disease who presents to the emergency department for evaluation of dyspnea. #. Acute hypoxemic respiratory failure secondary to acute exacerbation of COPD, unspecified EF (new onset): Will admit patient and initiate IV diuresis. Monitor oxygen saturation and wean as tolerated. Maintain oxygen saturation greater than 90%. Strict I's and O's. Low-salt diet. Consulting Cardiology and obtaining echocardiogram #. NSTEMI: Cardiology consulted from the ER and patient initiated on IV heparin. Administered aspirin #. Acute kidney injury stage I on CKD, due to cardiorenal type 1: Monitor creatinine and urine output with IV diuresis. Avoid nephrotoxins #. Reactive leukocytosis: No bacterial infection. Defer Abx #. Essential hypertension: Continue home antihypertensives #. Gastroesophageal reflux disease: On PPI Med rec pending DVT prophylaxis: IV heparin Admit as inpatient and will require two night minimum hospital stay for supplemental oxygen, IV diuresis and IV heparin Time Spent With Patient Time: Total time managing care of this patient today ____ minutes. Quality Stroke Does the patient have a stroke diagnosis?: No VTE Prior VTE?: No VTE Risk Level:: Medical - moderate - high VTE Device Contraindication: Treatment Not Indicated VTE Drug Contraindication: N/A - Med Ordered
[2023-09-02 20:47] VITALS: BMI 33.9
[2023-09-02] MEDS: Heparin Sodium,Porcine 5,000 UNIT/ML VIAL 5000 UNIT IVPUSH (21:13)
[2023-09-02] MEDS: Furosemide 40 MG/4 ML VIAL IVPUSH (21:14)
[2023-09-02] MEDS: Aspirin Enteric Coated 81 MG TABLET.DR PO (21:14)
[2023-09-02] MEDS: Atorvastatin Calcium 80 MG TABLET PO (21:14)
[2023-09-02] MEDS: cefTRIAXone sodium 1 GM in 0.9 % Sodium Chloride 50 ML IV (21:29)
[2023-09-02] MEDS: Heparin Sodium,Porcine/1/2NS 25,000 UNIT/250 ML IV.SOLN 12.94 UNIT IVCONT (21:46)
[2023-09-02 21:54] LABS: Lactic Acid 1.6 mmol/L (0.5-2.0)
--- NOTE | 2023-09-02 22:05 | PHA.MEDREC ---
Pharmacy Consult ? Medication Reconciliation Pharmacy has completed the medication reconciliation.
[2023-09-02 22:09] VITALS: RESP 31
[2023-09-02] MEDS: Morphine Sulfate 2 MG/ML CARTRIDGE IVPUSH (22:09)
[2023-09-02 22:10] LABS: Influenza A PCR NEGATIVE (Negative); Influenza B PCR NEGATIVE (Negative); Resp Syncy Virus RNA Qual PCR NEGATIVE (Negative); SARS COV2 PCR INHOUSE POSITIVE (Negative)
--- NOTE | 2023-09-02 22:38 | PC.NURSE ---
Patient is a difficult stick, multiple unsuccessful attempts were made by this RN and technology adoption manager to draw Lactic acid and BC. Patient admitted, labs to be drawn by diesel mechanic construction.
[2023-09-02 22:43] VITALS: BP 120/60; PULSE 100; RESP 18; TEMP 37.2; O2SAT 98
--- NOTE | 2023-09-02 23:51 | PC.NURSE ---
Patient reports her back pain is getting severewith movement and at tolerable level 5/10 at rest. Danielle care provided, purewick placed to promote comfort and monitor I&O. VSS, call joaquin within patient's reach.
[2023-09-03] VITALS (9 sets, daily range): BP systolic 111–187; BP diastolic 51–76; PULSE 77–126; RESP 16–36; TEMP 36.2–37.9; O2SAT 94–97
[2023-09-03] MEDS: 0.9 % Sodium Chloride Flush 3 ML SYRINGE IVFLUSH ×3 (01:04→17:59)
[2023-09-03] MEDS: Morphine Sulfate 2 MG/ML CARTRIDGE IVPUSH ×4 (03:03→19:53)
--- NOTE | 2023-09-03 03:07 | ECG_ITS ---
Test Reason : CHEST PAIN Blood Pressure : / mmHG Vent. Rate : 114 BPM Atrial Rate : 114 BPM P-R Int : 150 ms QRS Dur : 088 ms QT Int : 356 ms P-R-T Axes : 079 085 -26 degrees QTc Int : 490 ms Sinus tachycardia with frequent Premature ventricular complexes in a pattern of bigeminy Nonspecific ST and T wave abnormality Abnormal ECG When compared with ECG of 02-SEP-2023 18:42, Aberrant conduction is no longer Present T wave inversion no longer evident in Anterior leads ST now depressed in Lateral leads Referred By: Marry Clemons Electronically Signed By:MISAEL SUTHERLAND MD
--- NOTE | 2023-09-03 04:05 | PC.NURSE ---
Patient c/o chest pressure/tightness, EKG completed and sent to DR. Clemons. Purewick in place, no urine output noted, patient is dry/no episodes of urinary incontinence noted. Dr. Clemons informed. New order obtained to insert F/C. 16 Fr F/C inserted, balloon inflated with 10 mL of sterile water. Patient tolerated procedure well, 1000 mL of concentrated, clear urine drained into F/C bag with cath insertion. Patent denies chest pain, patient reports rates lower back pain current pain as 5/10-at tolerable level. VSS. Heparin drip on hold for PTT HD >200, repeat PTT HD scheduled for 5:26 am, no s/s of active bleeding noted. Patient is resting with her eyes closed, call joaquin within patient's reach.
[2023-09-03 04:12] LABS: Hematocrit 35.1 % (37.0-47.0); Hemoglobin 11.8 g/dl (12.0-16.0); Mean Corpuscular HGB Conc 33.6 g/dl (31.0-35.0); Mean Corpuscular Hemoglobin 26.9 pg (27.0-33.0); Mean Platelet Volume 9.9 fL (9.4-12.3); Platelet Count 206 X10*3/uL (160-400); Red Blood Count 4.39 X10*6/uL (4.20-5.50); Red Cell Distribution Width 16.7 % (11.0-16.0); White Blood Count 23.5 X10*3/uL (4.8-10.8)
[2023-09-03 04:35] LABS: PTT Heparin Drip > 200.0 SEC (53-77.9)
[2023-09-03 04:39] LABS: Anion Gap 19 (12-20); Blood Urea Nitrogen 31 mg/dL (9-16); Calcium 9.3 mg/dL (8.4-10.2); Carbon Dioxide 13 mmol/L (22-29); Chloride 101 mmol/L (96-108); Estimated Glomerular Filt Rate 24; Glucose Random 70 mg/dL (60-115); Potassium 4.5 mmol/L (3.3-5.1); Sodium 128 mmol/L (135-145)
[2023-09-03 04:44] LABS: Band Neutrophils Percent 18 % (3-5); Lymphocytes Absolute Manual 0.7 X10*3/uL (1.2-4.9); Lymphocytes Percent Manual 3 % (20-40); Monocytes Absolute Manual 0.9 X10*3/uL (0.1-1.2); Monocytes Percent Manual 4 % (2-11); Neutrophils Absolute Manual 21.9 X10*3/uL (2.0-8.3); Neutrophils Percent Manual 75 % (45-73)
[2023-09-03 04:45] LABS: Acanthocytes 2+ (3-5) /OIF; Microcytosis 1+ (5-14) /OIF; Ovalocytes 1+ (5-14) /OIF; Platelet Estimate NORMAL (NORMAL); Platelet Morphology Comment NORMAL; RBC Morphology NOTED; Toxic Vacuolation PRESENT
--- NOTE | 2023-09-03 06:15 | PC.NURSE ---
Telephone call from lab, spoke to Feng who reported critical PTT HD >200. Dr. Clemons informed, Heparin remain on hold per protocol, no s/s of active bleeding noted.
[2023-09-03 06:16] LABS: PTT Heparin Drip > 200.0 SEC (53-77.9)
[2023-09-03 07:31] LABS: PTT Heparin Drip 108.3 SEC (53-77.9)
[2023-09-03 08:26] LABS: PTT Heparin Drip 69.5 SEC (53-77.9)
[2023-09-03] MEDS: dexAMETHasone sod phosphate 4 MG/ML VIAL 6 MG IVPUSH (08:48)
[2023-09-03] MEDS: Furosemide 100 MG/10 ML VIAL 60 MG IVPUSH (08:48)
--- NOTE | 2023-09-03 08:57 | PC.NURSE ---
Addendum entered by Jossie Joy 09/03/23 09:15: Pt also reporting chest tightness, states it feels like a bra is on too tight . Reports lightheaded but states r/t Morphine given as pt declined lightheaded before given. Original Note: Pt is alert/oriented. Breathing is mildly/labored however pt reports primary concern is low back pain. Pt repositioned and PRN Morphine given as charted. Sinu stachy on tele low 100s. Sat 96% on 3lpm. Tachypenic RR 26-30. Spoke to brothmary Silva with permission of pt and updated on plan of care. Second PTT 69, Heparin restarted per protocol. Skin is pwd. Rectal temp 100.3. Wallace patent with dark yellow urine noted in drainage bag. Anteriorly LS clear however poor inspiration by pt d/t pain with inspiration. No BLE edema noted. Next PTT HD to be drawn at 1500.
--- NOTE | 2023-09-03 09:15 | PC.NURSE ---
Cardiology at bedside
--- NOTE | 2023-09-03 10:28 | P.PNIM_ITS ---
Subjective Subjective Date of Service: 09/03/23 Interval History: seen and examined this morning follow up for NSTEMI, COVID 19 feels uncomfortable from lying in bed, thinks breathing may be a little better then on admission denies chest pain Review of Systems Review of Systems: Yes all other systems are reviewed and are negative Constitutional Constitutional: Denies chills and Denies fever(s) ENT Ears, Nose, Mouth, and Throat: Denies dizziness Cardiovascular Cardiovascular: Denies chest pain, Denies palpitations and Reports dyspnea Respiratory Respiratory: Reports dyspnea Gastrointestinal Gastrointestinal: Denies abdominal pain Neurologic Neurologic: Denies dizziness Endocrine Endocrine: Denies palpitations Physical Exam 2 Vital Signs: Vital Signs: Last Vital Signs Temp 100.3 F 09/03/23 08:32 Pulse 126 H 09/03/23 08:32 Resp 26 H 09/03/23 08:32 BP 137/61 09/03/23 08:32 Pulse Ox 96 09/03/23 08:32 O2 Del Method Nasal Cannula 09/03/23 08:32 O2 Flow Rate 3 09/03/23 08:32 BMI result Body Mass Index 33.9 Const: General: alert and awake Nutritional Appearance: overweight O rientation/consciousness: patient oriented x3 Resp: Effort & Inspection: no respiratory distress, tachypneic (mild) and no use of accessory muscles Cardio: Rate: tachycardic GI: Inspection: No distended Palpation (GI): Soft to palpation and nontender Neuro: General: patient oriented x3, moves all extremities and CN's II-XI intact bilaterally Extrem: General: Yes no pedal edema Objective Data Active Medications Acetaminophen (Acetaminophen 325 Mg Tablet) 650 mg PO Q6H PRN PRN Reason: Pain, Mild (Pain Scale 1-3) Albuterol/Ipratropium (Albuterol/Iprat 2.5/0.5mg 3 Ml Ampul.Neb) 3 ml INHALE RQ6H WHILE AWAKE [facility] Last Admin: 09/03/23 08:45 Dose: Not Given Documented By: JUSTICE Non-Admin Reason: Patient Asleep Alprazolam (Alprazolam 0.5 Mg Tablet) 1 mg PO BEDTIME PRN PRN Reason: Anxiety Aspirin (Aspirin Enteric Coated 81 Mg Tablet.Dr) 81 mg PO DAILY [facility] Atorvastatin Calcium (Atorvastatin Calcium 40 Mg Tablet) 40 mg PO BEDTIME [facility] Dexamethasone Sodium Phosphate (Dexamethasone Sod Phosphate 4 Mg/Ml Vial) 6 mg IVPUSH DAILY [facility] Last Admin: 09/03/23 08:48 Dose: 6 mg Documented By: REUBEN Heparin Sodium (Porcine) (Heparin Sodium,Porcine 5,000 Unit/Ml Vial) 3,700 unit 40 unit/kg (3700 unit) IVPUSH PROTOCOL BOLUS PRN; Protocol PRN Reason: 40 unit/kg - Heparin Protocol Heparin Sodium (Porcine) (Heparin Sodium,Porcine 5,000 Unit/Ml Vial) 7,400 unit 80 unit/kg (7400 unit) IVPUSH PROTOCOL BOLUS PRN; Protocol PRN Reason: 80 unit/kg - Heparin Protocol Heparin Sodium/Sodium Chloride (Heparin Sodium,Porcine/1/2ns) 25,000 unit in 250 mls @ 0 mls/hr IVCONT .Q0M [facility]; Protocol Last Titration: 09/03/23 08:52 Dose: 10 units/kg/hr, 9.24 mls/hr Documented By: REUBEN Co-signed By: MAYRA Levalbuterol HCl (Levalbuterol Hcl 1.25 Mg/3 Ml Vial.Neb) 1.25 mg INHALE Q2H PRN PRN Reason: Shortness of Breath/Wheezing Melatonin (Melatonin 3 Mg Tablet) 6 mg PO BEDTIME PRN PRN Reason: Insomnia Metoprolol Tartrate (Metoprolol Tartrate 50 Mg Tablet) 50 mg PO BID [facility]; Protocol Morphine Sulfate (Morphine Sulfate 2 Mg/Ml Cartridge) 2 mg IVPUSH Q4H PRN; Protocol PRN Reason: Pain, Severe (Pain Scale 7-10) Last Admin: 09/03/23 08:48 Dose: 2 mg Documented By: REUBEN Nitroglycerin (Nitroglycerin 0.4 Mg Tab.Subl) 0.4 mg SUBLINGUAL Q5MX3 PRN PRN Reason: Chest Pain Ondansetron HCl (Ondansetron Hcl 4 Mg/2 Ml Vial) 4 mg IVPUSH Q8H PRN PRN Reason: Nausea and Vomiting Sodium Chloride (0.9 % Sodium Chloride Flush 3 Ml Syringe) 3 ml [facility] Last Admin: 09/03/23 08:48 Dose: 3 ml Documented By: REUBEN Labs 09/03/23 03:59 09/03/23 03:59 Labs: Laboratory Results - last 24 hr 09/02/23 09/02/23 09/02/23 18:33 18:36 21:22 MCV 80.3 MCH 27.3 MCHC 34.0 RDW 16.4 H Plt Count 216 MPV 9.1 L Immature Gran % (Auto) 0.6 H Neut % (Auto) 88.4 H Lymph % (Auto) 2.4 L Adams % (Auto) 8.4 Eos % (Auto) 0.1 Baso % (Auto) 0.1 Lymph # (Auto) 0.5 L Adams # (Auto) 1.8 H Eos # (Auto) 0.0 Baso # (Auto) 0.0 Abs Immat Gran (auto) 0.12 H Absolute Neuts (auto) 18.6 H Absolute Nucleated RBC 0.000 Nucleated RBC % (auto) 0.0 Neutrophils % (Manual) Band Neutrophils % Lymphocytes % (Manual) Monocytes % (Manual) Abs Neuts (Manual) Lymphocytes # (Manual) Monocytes # (Manual) Toxic Vacuolation Platelet Estimate Plt Morphology Comment RBC Morphology Microcytosis Ovalocytes Acanthocytes (Spur) Smear Tech's Comments VERIFIED Hold Purple Top PT 14.5 H INR 1.2 H APTT 32.0 aPTT Heparin Protocol VBG pH 7.43 VBG pCO2 24 VBG pO2 59 VBG HCO3 16 L VBG O2 Saturation 85.0 VBG Base Excess -5.6 Anion Gap 14 Estim Creat Clear Calc 32.1 Estimated GFR 29 Random Glucose 91 Lactic Acid Calcium 9.6 Magnesium 1.6 Total Bilirubin 0.5 AST 35 H ALT 16 Alkaline Phosphatase 58 B-Natriuretic Peptide 7374 H Total Protein 6.5 Albumin 3.7 Influenza Type A (PCR) NEGATIVE Influenza Type B (PCR) NEGATIVE RSV RNA Qual (PCR) NEGATIVE SARS-CoV-2 RNA (RT-PCR) POSITIVE A 09/02/23 09/03/23 09/03/23 21:34 03:59 05:21 MCV 80.0 MCH 26.9 L MCHC 33.6 RDW 16.7 H Plt Count 206 MPV 9.9 Immature Gran % (Auto) Cancelled Neut % (Auto) Cancelled Lymph % (Auto) Cancelled Adams % (Auto) Cancelled Eos % (Auto) Cancelled Baso % (Auto) Cancelled Lymph # (Auto) Cancelled Adams # (Auto) Cancelled Eos # (Auto) Cancelled Baso # (Auto) Cancelled Abs Immat Gran (auto) Cancelled Absolute Neuts (auto) Cancelled Absolute Nucleated RBC 0.000 Nucleated RBC % (auto) 0.0 Neutrophils % (Manual) 75 H Band Neutrophils % 18 H Lymphocytes % (Manual) 3 L Monocytes % (Manual) 4 Abs Neuts (Manual) 21.9 H Lymphocytes # (Manual) 0.7 L Monocytes # (Manual) 0.9 Toxic Vacuolation PRESENT Platelet Estimate NORMAL Plt Morphology Comment NORMAL RBC Morphology NOTED Microcytosis 1+ (5-14) Ovalocytes 1+ (5-14) Acanthocytes (Spur) 2+ (3-5) Smear Tech's Comments Hold Purple Top SEE NOTE PT INR APTT aPTT Heparin Protocol > 200.0 H* > 200.0 H* VBG pH VBG pCO2 VBG pO2 VBG HCO3 VBG O2 Saturation VBG Base Excess Anion Gap 19 Estim Creat Clear Calc 27.0 Estimated GFR 24 Random Glucose 70 Lactic Acid 1.6 Calcium 9.3 Magnesium Total Bilirubin AST ALT Alkaline Phosphatase B-Natriuretic Peptide Total Protein Albumin Influenza Type A (PCR) Influenza Type B (PCR) RSV RNA Qual (PCR) SARS-CoV-2 RNA (RT-PCR) 09/03/23 09/03/23 06:41 08:05 MCV MCH MCHC RDW Plt Count MPV Immature Gran % (Auto) Neut % (Auto) Lymph % (Auto) Adams % (Auto) Eos % (Auto) Baso % (Auto) Lymph # (Auto) Adams # (Auto) Eos # (Auto) Baso # (Auto) Abs Immat Gran (auto) Absolute Neuts (auto) Absolute Nucleated RBC Nucleated RBC % (auto) Neutrophils % (Manual) Band Neutrophils % Lymphocytes % (Manual) Monocytes % (Manual) Abs Neuts (Manual) Lymphocytes # (Manual) Monocytes # (Manual) Toxic Vacuolation Platelet Estimate Plt Morphology Comment RBC Morphology Microcytosis Ovalocytes Acanthocytes (Spur) Smear Tech's Comments Hold Purple Top PT INR APTT aPTT Heparin Protocol 108.3 H* D 69.5 D VBG pH VBG pCO2 VBG pO2 VBG HCO3 VBG O2 Saturation VBG Base Excess Anion Gap Estim Creat Clear Calc Estimated GFR Random Glucose Lactic Acid Calcium Magnesium Total Bilirubin AST ALT Alkaline Phosphatase B-Natriuretic Peptide Total Protein Albumin Influenza Type A (PCR) Influenza Type B (PCR) RSV RNA Qual (PCR) SARS-CoV-2 RNA (RT-PCR) Assessment and Plan (1) COVID-19: Status: Acute (2) Acute hypoxemic respiratory failure: Status: Acute (3) NSTEMI (non-ST elevated myocardial infarction): Status: Acute Plan This is a 72-year-old female with pertinent history of restrictive lung disease, essential hypertension, gastroesophageal reflux disease who presents to the emergency department for evaluation of dyspnea. Acute hypoxemic respiratory failure secondary to COVID 19 also has underlying restrictive lung disease Monitor oxygen saturation and wean as tolerated, breathing treatments management for COVID 19 COVID 19 IV decadron will discuss with ID if patient would benefit from Remdisivir supportive care, supplemental oxygen NSTEMI trop 1404, 1890, trend trop until begins to trend down continue heparin drip ASA, statin, continue metoprolol echo pending cardiology following CHF, unspecified BNP significantly elevated at 7374, and CXR with mild CHF initially treated with diuretics, but clinically does not appear to be in CHF will stop IV lasix, hold baseline lasix await echo JAISON on CKD3 SCr baseline 1.3, up to 2.05 creatinine worsening with lasix, will stop lasix nephrology consult pending hold omlesartan Avoid nephrotoxins follow renal function Hyponatremia, acute on chronic will check urine studies nephrology consult pending follow BMP HTN on hydralazine, nifedipine, metoprolol, olmesartan will resume metoprolol in light of NSTEMI olmesartan on hold for JAISON resume other meds as bp allows leukocytosis possibly reactive received empiric ceftriaxone check procalcitonin Gastroesophageal reflux disease: On PPI DVT prophylaxis: IV heparin code status - full code attending - Dr. Muhammad Will require ongoing inpatient hospital stay for management of respiratory failure, NSTEMI requiring supplemental oxygen, IV heparin, specialist evaluation and close monitoring of cardiopulmonary status Time Spent With Patient Time: Total time managing care of this patient today ____ minutes. Quality Stroke Does the patient have a stroke diagnosis?: No VTE Prior VTE?: No VTE Risk Level:: Medical - moderate - high VTE Device Contraindication: Treatment Not Indicated VTE Drug Contraindication: N/A - Med Ordered
[2023-09-03] MEDS: Aspirin Enteric Coated 81 MG TABLET.DR PO (10:45)
[2023-09-03] MEDS: Metoprolol Tartrate 50 MG TABLET PO ×2 (10:45→20:59)
--- NOTE | 2023-09-03 10:50 | CA_ITS ---
Transthoracic Echocardiogram Patient (Last, First, Middle): Tg Luong, Gender: Female Date of : 1950 Age: 72 Procedure Date: 09/03/2023 Procedure Type: Transthoracic Echocardiogram Location: ER Height: 165.1 cm Weight: 92.08 kg BSA: 1.99 m2 Heart Rate: bpm BP: 137 / 61 mmHg Header Set Up Operator: ANTHONY Referring MD: Nyasia Clemons MD Symptoms: CHF Study Quality: Fair ECG Rhythm: Sinus Conclusions: - The left ventricular systolic function is hyperdynamic. The visually estimated ejection fraction is >70%. - No obvious valvular pathology seen on this study. - Mild to moderate pulmonary hypertension is present. - There is a moderate loculated pericardial effusion overlying the left ventricle. There are no definitive echocardiographic findings of tamponade physiology. Findings Left Ventricle Normal left ventricular cavity size. There is moderately increased left ventricular wall thickness. The left ventricular systolic function is hyperdynamic. The visually estimated ejection fraction is >70%. There is no evidence of regional wall motion abnormalities. There is a flattened septum in systole consistent with right ventricular pressure overload. There is no dynamic left ventricular obstruction. There is no dynamic left ventricular outflow tract obstruction. Evidence suggests grade I (mild) diastolic dysfunction. Right Ventricle Mildly increased right ventricular cavity size. Normal right ventricular wall motion. Atria Both atria are normal in size. Aortic Valve There is a normal trileaflet aortic valve. There is no aortic valve stenosis. There is no aortic valve regurgitation. Mitral Valve The mitral valve appears normal. There is mild mitral annular calcification. There is no mitral valve regurgitation. There is no mitral valve stenosis. Pulmonic Valve The pulmonic valve was not well visualized. Tricuspid Valve There is mild tricuspid valve regurgitation. Mild to moderate pulmonary hypertension is present. Great Vessels Small plaque is seen in the sino tubular ridge. Venous The inferior vena cava is mildly dilated and collapses less than 50% with inspiration. Pericardium/Pleural There is a moderate loculated pericardial effusion overlying the left ventricle. There are no definitive echocardiographic findings of tamponade physiology. Maximum thickness 1.7cm. Prior Study Comparison Changes noted compared to prior study dated: 10/06/2021. Increase in pericardial effusion size. Recommendations, Care & Conclusions No obvious valvular pathology seen on this study. Measurements 2D Linear Measurements IVSd: 1.50 0.6-0.9/0.6-1.0 cm LVIDd: 3.50 3.9-5.3/4.2-5.9 cm LVIDd Index: 1.76 2.4-3.2/2.2-3.1 cm/m2 LVIDs: 2.20 2.0-3.6 cm LVPWd: 1.40 0.7-1.1 cm LA Diam: 3.30 2.7-3.8/3.0-4.0 cm LAIDs Index: 1.66 1.5-2.3 cm/m2 LV Mass: 228.04 67-162/88-224 g LV Mass Index: 114.59 43-95/49-115 g/m2 LVOT Diam: 2.00 3.0+(-)1.3 cm Mitral Valve MV Pk E: 0.62 MV PK A: 1.36 MV Decel Time: 250.00 E/A: 0.50 E'Lateral: 6.20 E'Medial: 5.98 E/E' Med: 10.40 E/E' Lat: 10.10 PHT: 73.00 MVA PHT: 3.01 Decel [place]: 2.50 Aortic Valve AoV Pk Ben: 1.65 AoV Mn Ben: 0.96 AoV VTI: 0.27 AoV Pk Grad: 11.00 Aov Mn Grad: 4.00 ERIN Cont.VTI: 2.90 LVOT LVOT Pk Ben: 1.31 LVOT Mn Ben: 0.81 LVOT VTI: 0.25 LVOT Pk Grad: 7.00 LVOT Mn Grad: 3.00 LVOT Diam: 2.00 LVOT Area: 3.14 Diastolic Function MV Pk E: 0.62 MV Pk A: 1.36 E/A: 0.50 E'Medial: 5.98 E/E' Med: 10.40 E' Laterial: 6.20 E/E' Lat: 10.10 Right Ventricle TAPSE (mm): 13.70 TVS' Ben: 12.30 Tricuspid Valve TR Pk Ben: 3.05 TR Pk Grad: 37.00 RA Press: 15.00 RVSP: 52.00 Great Vessels Aorta Sinus of Valsalva: 3.50 2.0-3.[address] Ridge: 2.80 1.7-3.4 cm Updated in Other Vendor System with Status of Final Wilbert Cotter MD electronically signed on 09/03/2023 1:40:23 PM with status of Final
--- NOTE | 2023-09-03 10:53 | P.CONCA_ITS ---
History of Present Illness History of Present Illness Date of Service: 09/03/23 Chief complaint: dyspnea Narrative: This is a cardiology consultation regarding elevated troponins. Patient presents with a history of shortness of breath for the last few days. Minimal nonproductive cough. No clear-cut chest pains but she states she is feeling as though she is wearing a tight bra. In this context, troponins were checked and they were found to be elevated and hence we were consulted. Cardiac BNP was checked and that was also high. However, no clear-cut cardiac history. Review of Systems 2 Review of Systems: Yes all other systems are reviewed and are negative Constitutional: Constitutional: Reports as per HPI and Reports no additional constitutional complaints Eyes: Eyes: Reports as per HPI and Denies no additional eye complaints ENT: Denies system reviewed and no additional complaints, except as documented and Reports as per HPI Cardiovascular: Cardiovascular: Reports as per HPI, Reports no additional cardiovascular complaints, Denies acrocyanosis, Denies cool extremities, Reports chest pain, Denies leg edema, Denies lightheadedness, Denies palpitations and Reports dyspnea Respiratory: Respiratory: Reports as per HPI, Denies no additional respiratory complaints and Reports dyspnea Gastrointestinal: Gastrointestinal: Reports as per HPI and Denies no additional gastrointestinal complaints Genitourinary: Genitourinary: Reports as per HPI Musculoskeletal: Musculoskeletal: Reports no additional musculoskeletal complaints and Reports as per HPI Integumentary/Breasts: Skin/Breast: Reports system reviewed and no additional complaints, except as docu Neurologic: Reports system reviewed and no additional complaints, except as documented and Reports as per HPI Psychiatric: Psychiatric: Reports no additional psychiatric complaints and Reports as per HPI Endocrine: Endocrine: Reports no additional endocrine complaints, Reports as per HPI and Denies palpitations Hematologic/Lymphatic: Hematologic/Lymphatic: Reports no additional hematologic/lymphatic complaints and Reports as per HPI Allergic/Immunologic: Allergic/Immunologic: Reports no additional allergic/immunologic complaints and Reports as per HPI [facility] Past Medical History Medical History Exertional dyspnea Restrictive lung disease Smoker Family History Family History (Updated 09/03/23 @ 10:58 by Wilbert Cotter MD) Father CAD (coronary artery disease) Social History Social History Alcohol intake: never Patient Tobacco Use Status: Current everyday Tobacco user Cigarette Packs Per Day: 0.5 Cigarettes Per Day: 4 Years Smoked: 53 Smoked in Last 30 Days: Yes Use of substances other than those prescribed or required for medical reasons: No Advance Directives: No Nutrition Risks: No Nutritional Risk Meds Allergies Allergy/AdvReac Type Severity Reaction Status Date / Time pollen extracts Allergy Mild mild Verified 02/15/22 13:52 Active Medications: Current Medications Acetaminophen (Acetaminophen 325 Mg Tablet) 650 mg PO Q6H PRN PRN Reason: Pain, Mild (Pain Scale 1-3) Albuterol/Ipratropium (Albuterol/Iprat 2.5/0.5mg 3 Ml Ampul.Neb) 3 ml INHALE RQ6H WHILE AWAKE [facility] Last Admin: 09/03/23 08:45 Dose: Not Given Alprazolam (Alprazolam 0.5 Mg Tablet) 1 mg PO BEDTIME PRN PRN Reason: Anxiety Aspirin (Aspirin Enteric Coated 81 Mg Tablet.) 81 mg PO DAILY [facility] Atorvastatin Calcium (Atorvastatin Calcium 40 Mg Tablet) 40 mg PO BEDTIME [facility] Dexamethasone Sodium Phosphate (Dexamethasone Sod Phosphate 4 Mg/Ml Vial) 6 mg IVPUSH DAILY [facility] Last Admin: 09/03/23 08:48 Dose: 6 mg Heparin Sodium (Porcine) (Heparin Sodium,Porcine 5,000 Unit/Ml Vial) 3,700 unit 40 unit/kg (3700 unit) IVPUSH PROTOCOL BOLUS PRN; Protocol PRN Reason: 40 unit/kg - Heparin Protocol Heparin Sodium (Porcine) (Heparin Sodium,Porcine 5,000 Unit/Ml Vial) 7,400 unit 80 unit/kg (7400 unit) IVPUSH PROTOCOL BOLUS PRN; Protocol PRN Reason: 80 unit/kg - Heparin Protocol Heparin Sodium/Sodium Chloride (Heparin Sodium,Porcine/1/2ns) 25,000 unit in 250 mls @ 0 mls/hr IVCONT .Q0M [facility]; Protocol Last Titration: 09/03/23 08:52 Dose: 10 units/kg/hr, 9.24 mls/hr Levalbuterol HCl (Levalbuterol Hcl 1.25 Mg/3 Ml Vial.Neb) 1.25 mg INHALE Q2H PRN PRN Reason: Shortness of Breath/Wheezing Melatonin (Melatonin 3 Mg Tablet) 6 mg PO BEDTIME PRN PRN Reason: Insomnia Metoprolol Tartrate (Metoprolol Tartrate 50 Mg Tablet) 50 mg PO BID [facility]; Protocol Morphine Sulfate (Morphine Sulfate 2 Mg/Ml Cartridge) 2 mg IVPUSH Q4H PRN; Protocol PRN Reason: Pain, Severe (Pain Scale 7-10) Last Admin: 09/03/23 08:48 Dose: 2 mg Nitroglycerin (Nitroglycerin 0.4 Mg Tab.Subl) 0.4 mg SUBLINGUAL Q5MX3 PRN PRN Reason: Chest Pain Ondansetron HCl (Ondansetron Hcl 4 Mg/2 Ml Vial) 4 mg IVPUSH Q8H PRN PRN Reason: Nausea and Vomiting Sodium Chloride (0.9 % Sodium Chloride Flush 3 Ml Syringe) [facility] Last Admin: 09/03/23 08:48 Dose: 3 ml Home Medications Medication Instructions Recorded Confirmed Last Taken Type alprazolam 1 mg tablet 1 mg PO BEDTIME PRN Anxiety 12/17/21 09/02/23 09/01/23 History doxazosin 2 mg tablet 2 mg PO BID 12/17/21 09/02/23 09/02/23 History furosemide 20 mg tablet 20 mg PO DAILY 12/17/21 09/02/23 09/02/23 History metoprolol tartrate 50 mg tablet 50 mg PO BID 12/17/21 09/02/23 09/02/23 History olmesartan 40 mg tablet 40 mg PO DAILY 12/17/21 09/02/23 09/02/23 History albuterol sulfate 90 mcg/actuation 2 puff inhalation Q4H PRN wheezing 09/02/23 09/02/23 Unknown History aerosol inhaler cyanocobalamin (vitamin B-12) 1,000 mcg PO DAILY 09/02/23 09/02/23 09/02/23 History 1,000 mcg tablet hydralazine 10 mg tablet 10 mg PO TID 09/02/23 09/02/23 09/02/23 History ketoconazole 2 % topical cream 1 appl topical BID 09/02/23 09/02/23 09/02/23 History nifedipine 60 mg tablet,extended 60 mg PO DAILY 09/02/23 09/02/23 09/02/23 History release 24 hr Physical Exam 2 Vital Signs: Vital Signs: Last Vital Signs Temp 100.3 F 09/03/23 08:32 Pulse 126 H 09/03/23 08:32 Resp 26 H 09/03/23 08:32 BP 137/61 09/03/23 08:32 Pulse Ox 96 09/03/23 08:32 O2 Del Method Nasal Cannula 09/03/23 08:32 O2 Flow Rate 3 09/03/23 08:32 BMI result Body Mass Index 33.9 Const: General: comfortable and no acute distress O rientation/consciousness: patient oriented x3 HEENT: Other: Unremarkable Head: Yes normal to inspection Neck: Neck: Yes normal visual inspection Chest: Chest palpation & inspection: normal inspection of the chest Resp: Auscultation: clear to auscultation bilaterally Cardio: Palpation: normal PMI Heart sounds: S1 normal heart sound present, S2 normal heart sound present, no gallops, no murmurs and no rubs GI: Palpation (GI): Soft to palpation Back/Spine/Pelvis: Other: unremarkable Skin: General skin exam: no rashes or lesions noted Neuro: General: patient oriented x3 Extrem: General: Yes normal to inspection Psych: Mental Status: mental status grossly normal Objective Labs and Meds 09/03/23 03:59 09/03/23 03:59 Lab results: Laboratory Results - last 24 hr 09/02/23 09/02/23 09/02/23 18:33 18:36 21:22 WBC 21.0 H RBC 4.32 Hgb 11.8 L Hct 34.7 L MCV 80.3 MCH 27.3 MCHC 34.0 RDW 16.4 H Plt Count 216 MPV 9.1 L Immature Gran % (Auto) 0.6 H Neut % (Auto) 88.4 H Lymph % (Auto) 2.4 L Barry % (Auto) 8.4 Eos % (Auto) 0.1 Baso % (Auto) 0.1 Lymph # (Auto) 0.5 L Barry # (Auto) 1.8 H Eos # (Auto) 0.0 Baso # (Auto) 0.0 Abs Immat Gran (auto) 0.12 H Absolute Neuts (auto) 18.6 H Absolute Nucleated RBC 0.000 Nucleated RBC % (auto) 0.0 Neutrophils % (Manual) Band Neutrophils % Lymphocytes % (Manual) Monocytes % (Manual) Abs Neuts (Manual) Lymphocytes # (Manual) Monocytes # (Manual) Toxic Vacuolation Platelet Estimate Plt Morphology Comment RBC Morphology Microcytosis Ovalocytes Acanthocytes (Spur) Smear Tech's Comments VERIFIED Hold Purple Top PT 14.5 H INR 1.2 H APTT 32.0 aPTT Heparin Protocol VBG pH 7.43 VBG pCO2 24 VBG pO2 59 VBG HCO3 16 L VBG O2 Saturation 85.0 VBG Base Excess -5.6 Sodium 130 L Potassium 4.4 Chloride 103 Carbon Dioxide 17 L Anion Gap 14 BUN 23 H Creatinine 1.73 H Estim Creat Clear Calc 32.1 Estimated GFR 29 Random Glucose 91 Lactic Acid Calcium 9.6 Magnesium 1.6 Total Bilirubin 0.5 AST 35 H ALT 16 Alkaline Phosphatase 58 Troponin I High Sens 1404.7 H* B-Natriuretic Peptide 7374 H Total Protein 6.5 Albumin 3.7 Influenza Type A (PCR) NEGATIVE Influenza Type B (PCR) NEGATIVE RSV RNA Qual (PCR) NEGATIVE SARS-CoV-2 RNA (RT-PCR) POSITIVE A 09/02/23 09/03/23 09/03/23 21:34 03:59 05:21 WBC 23.5 H RBC 4.39 Hgb 11.8 L Hct 35.1 L MCV 80.0 MCH 26.9 L MCHC 33.6 RDW 16.7 H Plt Count 206 MPV 9.9 Immature Gran % (Auto) Cancelled Neut % (Auto) Cancelled Lymph % (Auto) Cancelled Barry % (Auto) Cancelled Eos % (Auto) Cancelled Baso % (Auto) Cancelled Lymph # (Auto) Cancelled Barry # (Auto) Cancelled Eos # (Auto) Cancelled Baso # (Auto) Cancelled Abs Immat Gran (auto) Cancelled Absolute Neuts (auto) Cancelled Absolute Nucleated RBC 0.000 Nucleated RBC % (auto) 0.0 Neutrophils % (Manual) 75 H Band Neutrophils % 18 H Lymphocytes % (Manual) 3 L Monocytes % (Manual) 4 Abs Neuts (Manual) 21.9 H Lymphocytes # (Manual) 0.7 L Monocytes # (Manual) 0.9 Toxic Vacuolation PRESENT Platelet Estimate NORMAL Plt Morphology Comment NORMAL RBC Morphology NOTED Microcytosis 1+ (5-14) Ovalocytes 1+ (5-14) Acanthocytes (Spur) 2+ (3-5) Smear Tech's Comments Hold Purple Top SEE NOTE PT INR APTT aPTT Heparin Protocol > 200.0 H* > 200.0 H* VBG pH VBG pCO2 VBG pO2 VBG HCO3 VBG O2 Saturation VBG Base Excess Sodium 128 L Potassium 4.5 Chloride 101 Carbon Dioxide 13 L Anion Gap 19 BUN 31 H Creatinine 2.05 H Estim Creat Clear Calc 27.0 Estimated GFR 24 Random Glucose 70 Lactic Acid 1.6 Calcium 9.3 Magnesium Total Bilirubin AST ALT Alkaline Phosphatase Troponin I High Sens 1890.5 H* B-Natriuretic Peptide Total Protein Albumin Influenza Type A (PCR) Influenza Type B (PCR) RSV RNA Qual (PCR) SARS-CoV-2 RNA (RT-PCR) 09/03/23 09/03/23 06:41 08:05 WBC RBC Hgb Hct MCV MCH MCHC RDW Plt Count MPV Immature Gran % (Auto) Neut % (Auto) Lymph % (Auto) Barry % (Auto) Eos % (Auto) Baso % (Auto) Lymph # (Auto) Barry # (Auto) Eos # (Auto) Baso # (Auto) Abs Immat Gran (auto) Absolute Neuts (auto) Absolute Nucleated RBC Nucleated RBC % (auto) Neutrophils % (Manual) Band Neutrophils % Lymphocytes % (Manual) Monocytes % (Manual) Abs Neuts (Manual) Lymphocytes # (Manual) Monocytes # (Manual) Toxic Vacuolation Platelet Estimate Plt Morphology Comment RBC Morphology Microcytosis Ovalocytes Acanthocytes (Spur) Smear Tech's Comments Hold Purple Top PT INR APTT aPTT Heparin Protocol 108.3 H* D 69.5 D VBG pH VBG pCO2 VBG pO2 VBG HCO3 VBG O2 Saturation VBG Base Excess Sodium Potassium Chloride Carbon Dioxide Anion Gap BUN Creatinine Estim Creat Clear Calc Estimated GFR Random Glucose Lactic Acid Calcium Magnesium Total Bilirubin AST ALT Alkaline Phosphatase Troponin I High Sens B-Natriuretic Peptide Total Protein Albumin Influenza Type A (PCR) Influenza Type B (PCR) RSV RNA Qual (PCR) SARS-CoV-2 RNA (RT-PCR) ECG Interpretation: EKG shows sinus tachycardia at 114/min; frequent premature ventricular contractions; nonspecific ST-T changes. In 1 of the EKGs, there is T inversion in the anterior leads. Imaging Radiologist's impression: Impressions Chest X-Ray 09/02/23 19:24 IMPRESSION: Mild CHF. Assessment and Plan (1) NSTEMI (non-ST elevated myocardial infarction): Status: Acute (2) COVID-19: Status: Acute (3) Acute hypoxemic respiratory failure: Status: Acute Plan EKG shows anterior T inversions as well as some nonspecific changes with frequent PVCs. Troponin levels are 1404, 1890. Cardiac BNP 7374. In the past, 356. Chest x-ray report have mild CHF. COVID positive. Overall, NSTEMI in the setting of COVID. Treat with IV heparin 48 hours, aspirin, beta-blockers, statins. Echocardiogram. Eventually diagnostic catheterization. Timing to be decided as she also has concurrent COVID. Discussed with hospitalist. Time Spent With Patient Time: Total time managing care of this patient today ____ minutes. Procedures Date of Service Date of Service: 09/03/23
[2023-09-03 11:43] LABS: Troponin-I High Sensitivity 1277.5 ng/L (<3.5-17.0)
--- NOTE | 2023-09-03 13:05 | PC.NURSE ---
U/S at bedside performing bedside ECHO. VSS.
[2023-09-03 13:16] LABS: Procalcitonin 20.66 ng/mL
--- NOTE | 2023-09-03 14:32 | MHC.CM.PN ---
CM ATTEMPTED TO CONTQACT PT BY CELL PHONE X2 D/T VCOVID 19 STATUS, CM CONTACTED PT'S SISTER AND PRIMARY CONTACT NICKY TORRES AT 14:20PM, IMM DELIVERED AND WILL BE LEFT AT BEDSIDE ONCE PT COMES UP TO UNIT, PER NICKY PT IS INDEP W/CARE, DOES NOT USE DME/SERVICES HOWEVER DOES HAVE A RESCUE INHALER SHE LAST USED YESTERDAY, [employer] REPORTS PT LIVES W/HER AND HER AND HER BEDROOM IS IN BASEMENT OF THEIR [facility] HOME. NICKY VERIFIES PT'S PCP IS NEDRA GALVEZ AND SHE SAW HIM LAST WEEK, NICKY LOOKING FOR PT'S HCP WHILE ON PHONE HOWEVER UNABLE TO FIND IT, NICKY BELIEVES SHE OR HER BROTHER JOSE LIRA IS PT'S HCP AND SHE ALSO HAS A LIVING WILL/TRUST AND POA. PT WILL LIKELY NEED PT EVAL FOR DISPO AND MAY NEED CM TO SET UP TRANSPORT FOR PT.
[2023-09-03] MEDS: Albuterol/Iprat 2.5/0.5MG 3 ML AMPUL.NEB INHALE ×2 (14:50→21:10)
[2023-09-03] MEDS: Azithromycin 500 MG in 0.9 % Sodium Chloride 250 ML 125 MG IV (15:50)
[2023-09-03 16:06] LABS: PTT Heparin Drip 66.9 SEC (53-77.9)
[2023-09-03 16:23] LABS: Osmolality, Serum 283 mosm/kg (281-305)
[2023-09-03] MEDS: Atorvastatin Calcium 40 MG TABLET PO (20:59)
[2023-09-03] MEDS: Acetaminophen 325 MG TABLET 650 MG PO (20:59)
[2023-09-03] MEDS: ALPRAZolam 0.5 MG TABLET 1 MG PO (20:59)
[2023-09-03] MEDS: cefTRIAXone sodium 1 GM in 0.9 % Sodium Chloride 50 ML IV (20:59)
[2023-09-03 21:31] LABS: PTT Heparin Drip 94.1 SEC (53-77.9)
--- NOTE | 2023-09-03 22:59 | P.CNID_ITS ---
History of Present Illness Data of Consult Service Date: 09/03/23 Requesting physician: Radha Rojas Primary Care Provider: Mann Servin MD HPI Reason for consult: COVID,pneumonia He presents cough shortness of breath for a week. He has renal dysfunction He has positive COVID test. Review of Systems 2 Review of Systems: Yes all other systems are reviewed and are negative PMFSH Past Medical History Medical History Exertional dyspnea Restrictive lung disease Smoker Family History Family History Father CAD (coronary artery disease) Family history: reviewed and not pertinent Social History Social History Household Members: Family Housing: Apartment Do you presently have visiting nurse or other home services: No Alcohol intake: never Patient Tobacco Use Status: Current everyday Tobacco user Tobacco use type: Cigarette Cigarette Packs Per Day: 0.5 Cigarettes Per Day: 4 Years Smoked: 53 service: No Meds Allergies Allergy/AdvReac Type Severity Reaction Status Date / Time pollen extracts Allergy Mild mild Verified 02/15/22 13:52 Active Medications: Current Medications Acetaminophen (Acetaminophen 325 Mg Tablet) 650 mg PO Q6H PRN PRN Reason: Pain, Mild (Pain Scale 1-3) Last Admin: 09/03/23 20:59 Dose: 650 mg Albuterol/Ipratropium (Albuterol/Iprat 2.5/0.5mg 3 Ml Ampul.Neb) 3 ml INHALE RQ6H WHILE AWAKE [facility] Last Admin: 09/03/23 21:10 Dose: 3 ml Alprazolam (Alprazolam 0.5 Mg Tablet) 1 mg PO BEDTIME PRN PRN Reason: Anxiety Last Admin: 09/03/23 20:59 Dose: 1 mg Aspirin (Aspirin Enteric Coated 81 Mg Tablet.Dr) 81 mg PO DAILY [facility] Last Admin: 09/03/23 10:45 Dose: 81 mg Atorvastatin Calcium (Atorvastatin Calcium 40 Mg Tablet) 40 mg PO BEDTIME [facility] Last Admin: 09/03/23 20:59 Dose: 40 mg Dexamethasone Sodium Phosphate (Dexamethasone Sod Phosphate 4 Mg/Ml Vial) 6 mg IVPUSH DAILY [facility] Last Admin: 09/03/23 08:48 Dose: 6 mg Heparin Sodium (Porcine) (Heparin Sodium,Porcine 5,000 Unit/Ml Vial) 3,700 unit 40 unit/kg (3700 unit) IVPUSH PROTOCOL BOLUS PRN; Protocol PRN Reason: 40 unit/kg - Heparin Protocol Heparin Sodium (Porcine) (Heparin Sodium,Porcine 5,000 Unit/Ml Vial) 7,400 unit 80 unit/kg (7400 unit) IVPUSH PROTOCOL BOLUS PRN; Protocol PRN Reason: 80 unit/kg - Heparin Protocol Heparin Sodium/Sodium Chloride (Heparin Sodium,Porcine/1/2ns) 25,000 unit in 250 mls @ 0 mls/hr IVCONT .Q0M [facility]; Protocol Last Titration: 09/03/23 22:13 Dose: 0 units/kg/hr, 0 mls/hr Ceftriaxone Sodium 1 gm/ (Sodium Chloride) 50 mls @ 100 mls/hr IV Q24H [facility] Last Infusion: 09/03/23 21:35 Dose: Infused Azithromycin 500 mg/ Sodium (Chloride) 250 mls @ 125 mls/hr IV Q24H [facility] Last Infusion: 09/03/23 18:00 Dose: Infused Levalbuterol HCl (Levalbuterol Hcl 1.25 Mg/3 Ml Vial.Neb) 1.25 mg INHALE Q2H PRN PRN Reason: Shortness of Breath/Wheezing Melatonin (Melatonin 3 Mg Tablet) 6 mg PO BEDTIME PRN PRN Reason: Insomnia Metoprolol Tartrate (Metoprolol Tartrate 50 Mg Tablet) 50 mg PO BID [facility]; Protocol Last Admin: 09/03/23 20:59 Dose: 50 mg Morphine Sulfate (Morphine Sulfate 2 Mg/Ml Cartridge) 2 mg IVPUSH Q4H PRN; Protocol PRN Reason: Pain, Severe (Pain Scale 7-10) Last Admin: 09/03/23 19:53 Dose: 2 mg Nifedipine (Nifedipine Er 60 Mg Tab.Er.24) 60 mg PO DAILY [facility]; Protocol Nitroglycerin (Nitroglycerin 0.4 Mg Tab.Subl) 0.4 mg SUBLINGUAL Q5MX3 PRN PRN Reason: Chest Pain Ondansetron HCl (Ondansetron Hcl 4 Mg/2 Ml Vial) 4 mg IVPUSH Q8H PRN PRN Reason: Nausea and Vomiting Sodium Chloride (0.9 % Sodium Chloride Flush 3 Ml Syringe) 3 ml IVFLUSH QSHIFT [facility] Last Admin: 09/03/23 17:59 Dose: 3 ml Home Medications Medication Instructions Recorded Confirmed Last Taken Type alprazolam 1 mg tablet 1 mg PO BEDTIME PRN Anxiety 12/17/21 09/02/23 09/01/23 History doxazosin 2 mg tablet 2 mg PO BID 12/17/21 09/02/23 09/02/23 History furosemide 20 mg tablet 20 mg PO DAILY 12/17/21 09/02/23 09/02/23 History metoprolol tartrate 50 mg tablet 50 mg PO BID 12/17/21 09/02/23 09/02/23 History olmesartan 40 mg tablet 40 mg PO DAILY 12/17/21 09/02/23 09/02/23 History albuterol sulfate 90 mcg/actuation 2 puff inhalation Q4H PRN wheezing 09/02/23 09/02/23 Unknown History aerosol inhaler cyanocobalamin (vitamin B-12) 1,000 mcg PO DAILY 09/02/23 09/02/23 09/02/23 History 1,000 mcg tablet hydralazine 10 mg tablet 10 mg PO TID 09/02/23 09/02/23 09/02/23 History ketoconazole 2 % topical cream 1 appl topical BID 09/02/23 09/02/23 09/02/23 History nifedipine 60 mg tablet,extended 60 mg PO DAILY 09/02/23 09/02/23 09/02/23 History release 24 hr Physical Exam 2 Vital Signs: Vital Signs: Last Vital Signs Temp 97.3 F 09/03/23 19:48 Pulse 78 09/03/23 21:15 Resp 16 09/03/23 21:15 BP 187/76 H 09/03/23 19:48 Pulse Ox 97 09/03/23 19:48 O2 Del Method Nasal Cannula 09/03/23 19:48 O2 Flow Rate 4 09/03/23 19:48 BMI result Body Mass Index 33.9 Const: General: cooperative HEENT: Head: Yes normal to inspection Face and sinus: Yes normal facial exam Mouth: Normal oral and palatal mucosa present Teeth and gingiva: d entition normal Eyes: General: appearance normal, both eyes and all related structures P upils: Equal, round and reactive pupils present Resp: Effort & Inspection: normal respiratory effort Cardio: Rate: regular rate Rhythm: regular rhythm GI: Palpation (GI): Soft to palpation and nontender : General: Yes no CVA tenderness Back/Spine/Pelvis: Back: no CVA tenderness Skin: General skin exam: no rashes or lesions noted Neuro: General: moves all extremities Cranial nerves: Yes Equal, round and reactive pupils present Extrem: General: Yes normal to inspection Psych: Appearance: grossly normal Results Labs 09/03/23 03:59 09/03/23 03:59 Labs: Short CBC 09/03/23 Range/Units 03:59 WBC 23.5 H (4.8-10.8) X10*3/uL Hgb 11.8 L (12.0-16.0) g/dl Hct 35.1 L (37.0-47.0) % Plt Count 206 (160-400) X10*3/uL BMP 09/03/23 03:59 Sodium 128 L Potassium 4.5 Chloride 101 Carbon Dioxide 13 L BUN 31 H Creatinine 2.05 H Calcium 9.3 Assessment and Plan (1) COVID-19: Status: Acute (2) Acute hypoxemic respiratory failure: Status: Acute Plan steroids Dexamethasone Agree CTX and Zmax for now,possible 3-5 d Check urine Legionella and steo pneumonia Time Spent With Patient Time: Total time managing care of this patient today ____ minutes.
[2023-09-03] MEDS: Heparin Sodium,Porcine/1/2NS 25,000 UNIT/250 ML IV.SOLN 6.47 UNIT IVCONT (23:15)
[2023-09-04] VITALS (9 sets, daily range): BP systolic 109–136; BP diastolic 56–69; PULSE 88–100; RESP 16–26; TEMP 36.2–37.3; O2SAT 93–99
[2023-09-04] MEDS: Morphine Sulfate 2 MG/ML CARTRIDGE IVPUSH ×2 (05:08→21:56)
[2023-09-04 06:33] LABS: Basophils Percent Auto 0.1 % (0-2); Hematocrit 31.9 % (37.0-47.0); Hemoglobin 10.7 g/dl (12.0-16.0); Imm Gran Pct Auto 0.5 % (0.0-0.4); Lymphocytes Absolute Auto 0.7 X10*3/uL (1.2-4.9); Lymphocytes Percent Auto 3.7 % (20-40); MANUAL DIFF FLAG SCAN; Mean Corpuscular HGB Conc 33.5 g/dl (31.0-35.0); Mean Corpuscular Volume 80.4 fL (80.0-98.0); Mean Platelet Volume 9.7 fL (9.4-12.3); Monocytes Absolute Auto 0.7 X10*3/uL (0.1-1.2); Monocytes Percent Auto 3.9 % (2-11); Neutrophils Absolute Auto 17.5 x10*3/uL (2.0-8.3); Neutrophils Percent Auto 91.8 % (45-73); Platelet Count 213 X10*3/uL (160-400); Red Blood Count 3.97 X10*6/uL (4.20-5.50); SCAN SMEAR FLAG 1; White Blood Count 19.1 X10*3/uL (4.8-10.8)
[2023-09-04 06:41] LABS: PTT Heparin Drip 47.4 SEC (53-77.9)
[2023-09-04 06:50] LABS: Anion Gap 19 (12-20); Blood Urea Nitrogen 50 mg/dL (9-16); Calcium 9.1 mg/dL (8.4-10.2); Carbon Dioxide 16 mmol/L (22-29); Chloride 100 mmol/L (96-108); Creatinine Clr Calc Pharmacy 23.7; Estimated Glomerular Filt Rate 20; Glucose Random 82 mg/dL (60-115); Potassium 4.8 mmol/L (3.3-5.1); Sodium 130 mmol/L (135-145)
[2023-09-04 07:46] LABS: SLIDE REVIEW VERIFIED
[2023-09-04] MEDS: Albuterol/Iprat 2.5/0.5MG 3 ML AMPUL.NEB INHALE ×3 (08:09→20:21)
--- NOTE | 2023-09-04 08:19 | PM.CNNEP ---
History of Present Illness Reason for Consult Consult date: 09/04/23 Chief Complaint Chief complaint: dyspnea History of Present Illness Narrative: 72 year old patient with history of CKD admitted with COVID 19 pneumonia now with worsening kidney function. She initially presented with shortness of breath and cough. Patient tested positive for COVID 19. Review of her vital signs did not show hypotensive events. Review of Systems Review of Systems 10 points ROS negative except for pertinent in HPI PMFSH Past Medical History Medical History Exertional dyspnea Restrictive lung disease Smoker Family History Family History Father CAD (coronary artery disease) Family history: reviewed and not pertinent Social History Social History Household Members: Family Housing: Apartment Do you presently have visiting nurse or other home services: No Alcohol intake: never Patient Tobacco Use Status: Current everyday Tobacco user Tobacco use type: Cigarette Cigarette Packs Per Day: 0.5 Cigarettes Per Day: 4 Years Smoked: 53 service: No Meds Allergies Allergy/AdvReac Type Severity Reaction Status Date / Time pollen extracts Allergy Mild mild Verified 02/15/22 13:52 Active Medications: Current Medications Acetaminophen (Acetaminophen 325 Mg Tablet) 650 mg PO Q6H PRN PRN Reason: Pain, Mild (Pain Scale 1-3) Last Admin: 09/03/23 20:59 Dose: 650 mg Albuterol/Ipratropium (Albuterol/Iprat 2.5/0.5mg 3 Ml Ampul.Neb) 3 ml INHALE RQ6H WHILE AWAKE [facility] Last Admin: 09/04/23 08:09 Dose: 3 ml Alprazolam (Alprazolam 0.5 Mg Tablet) 1 mg PO BEDTIME PRN PRN Reason: Anxiety Last Admin: 09/03/23 20:59 Dose: 1 mg Aspirin (Aspirin Enteric Coated 81 Mg Tablet.) 81 mg PO DAILY [facility] Last Admin: 09/03/23 10:45 Dose: 81 mg Atorvastatin Calcium (Atorvastatin Calcium 40 Mg Tablet) 40 mg PO BEDTIME [facility] Last Admin: 09/03/23 20:59 Dose: 40 mg Dexamethasone Sodium Phosphate (Dexamethasone Sod Phosphate 4 Mg/Ml Vial) 6 mg IVPUSH DAILY [facility] Last Admin: 09/03/23 08:48 Dose: 6 mg Heparin Sodium (Porcine) (Heparin Sodium,Porcine 5,000 Unit/Ml Vial) 3,700 unit 40 unit/kg (3700 unit) IVPUSH PROTOCOL BOLUS PRN; Protocol PRN Reason: 40 unit/kg - Heparin Protocol Heparin Sodium (Porcine) (Heparin Sodium,Porcine 5,000 Unit/Ml Vial) 7,400 unit 80 unit/kg (7400 unit) IVPUSH PROTOCOL BOLUS PRN; Protocol PRN Reason: 80 unit/kg - Heparin Protocol Heparin Sodium/Sodium Chloride (Heparin Sodium,Porcine/1/2ns) 25,000 unit in 250 mls @ 0 mls/hr IVCONT .Q0M [facility]; Protocol Last Admin: 09/03/23 23:15 Dose: 7 units/kg/hr, 6.47 mls/hr Ceftriaxone Sodium 1 gm/ (Sodium Chloride) 50 mls @ 100 mls/hr IV Q24H [facility] Last Infusion: 09/03/23 21:35 Dose: Infused Azithromycin 500 mg/ Sodium (Chloride) 250 mls @ 125 mls/hr IV Q24H [facility] Last Infusion: 09/03/23 18:00 Dose: Infused Levalbuterol HCl (Levalbuterol Hcl 1.25 Mg/3 Ml Vial.Neb) 1.25 mg INHALE Q2H PRN PRN Reason: Shortness of Breath/Wheezing Melatonin (Melatonin 3 Mg Tablet) 6 mg PO BEDTIME PRN PRN Reason: Insomnia Metoprolol Tartrate (Metoprolol Tartrate 50 Mg Tablet) 50 mg PO BID [facility]; Protocol Last Admin: 09/03/23 20:59 Dose: 50 mg Morphine Sulfate (Morphine Sulfate 2 Mg/Ml Cartridge) 2 mg IVPUSH Q4H PRN; Protocol PRN Reason: Pain, Severe (Pain Scale 7-10) Last Admin: 09/04/23 05:08 Dose: 2 mg Nifedipine (Nifedipine Er 60 Mg Tab.Er.24) 60 mg PO DAILY [facility]; Protocol Nitroglycerin (Nitroglycerin 0.4 Mg Tab.Subl) 0.4 mg SUBLINGUAL Q5MX3 PRN PRN Reason: Chest Pain Ondansetron HCl (Ondansetron Hcl 4 Mg/2 Ml Vial) 4 mg IVPUSH Q8H PRN PRN Reason: Nausea and Vomiting Sodium Chloride (0.9 % Sodium Chloride Flush 3 Ml Syringe) 3 ml IVFLUSH QSHIFT [facility] Last Admin: 09/04/23 00:36 Dose: Not Given Home Medications Medication Instructions Recorded Confirmed Last Taken Type alprazolam 1 mg tablet 1 mg PO BEDTIME PRN Anxiety 12/17/21 09/02/23 09/01/23 History doxazosin 2 mg tablet 2 mg PO BID 12/17/21 09/02/23 09/02/23 History furosemide 20 mg tablet 20 mg PO DAILY 12/17/21 09/02/23 09/02/23 History metoprolol tartrate 50 mg tablet 50 mg PO BID 12/17/21 09/02/23 09/02/23 History olmesartan 40 mg tablet 40 mg PO DAILY 12/17/21 09/02/23 09/02/23 History albuterol sulfate 90 mcg/actuation 2 puff inhalation Q4H PRN wheezing 09/02/23 09/02/23 Unknown History aerosol inhaler cyanocobalamin (vitamin B-12) 1,000 mcg PO DAILY 09/02/23 09/02/23 09/02/23 History 1,000 mcg tablet hydralazine 10 mg tablet 10 mg PO TID 09/02/23 09/02/23 09/02/23 History ketoconazole 2 % topical cream 1 appl topical BID 09/02/23 09/02/23 09/02/23 History nifedipine 60 mg tablet,extended 60 mg PO DAILY 09/02/23 09/02/23 09/02/23 History release 24 hr Physical Exam Vital Signs: Last Vital Signs Temp 97.1 F 09/04/23 07:45 Pulse 96 09/04/23 08:10 Resp 18 09/04/23 08:10 BP 118/58 L 09/04/23 07:45 Pulse Ox 99 09/04/23 07:45 O2 Del Method Nasal Cannula 09/04/23 07:45 O2 Flow Rate 2 09/04/23 07:45 BMI result Body Mass Index 33.9 Const General: alert and awake HEENT Head: Yes normocephalic and Yes atraumatic Neck Neck: Yes supple Resp Auscultation: diminished lung sounds Cardio Heart sounds: S1 normal heart sound present and S2 normal heart sound present GI Palpation (GI): Soft to palpation and nontender Extrem General: Yes normal to inspection Results Lab Results 09/04/23 06:11 09/04/23 06:11 Lab results: Chemistry 09/02/23 09/03/23 09/04/23 18:33 03:59 06:11 Sodium 130 L 128 L 130 L Potassium 4.4 4.5 4.8 Carbon Dioxide 17 L 13 L 16 L BUN 23 H 31 H 50 H Creatinine 1.73 H 2.05 H 2.33 H Calcium 9.6 9.3 9.1 Hematology 09/02/23 09/03/23 09/04/23 18:33 03:59 06:11 WBC 21.0 H 23.5 H 19.1 H Hgb 11.8 L 11.8 L 10.7 L Plt Count 216 206 213 Assessment and Plan (1) JAISON (acute kidney injury): Status: Acute (2) Hyponatremia: Status: Acute (3) COVID-19: Status: Acute (4) CKD (chronic kidney disease) stage 3, GFR 30-59 ml/min: Status: Acute Plan JAISON due to compromised kidney perfusion and tubular stress probably cytokine release tubular injury in the setting of SARS COV 2 infection benign urine sediment no proteinuria known CKD baseline Scr ~ 1.3 mg/dl COVID 19 can cause hyponatremia h/o CHF REC urine sodium echocardiogram renal US hold diuretics hold olmesartan follow kidney function and electrolytes Time Spent With Patient Time: Total time managing care of this patient today ____ minutes. Procedures Date of Service Date of Service: 09/04/23
[2023-09-04] MEDS: Heparin Sodium,Porcine 5,000 UNIT/ML VIAL 3700 UNIT IVPUSH ×2 (08:30→22:44)
[2023-09-04] MEDS: Metoprolol Tartrate 50 MG TABLET PO ×2 (08:40→21:55)
[2023-09-04] MEDS: 0.9 % Sodium Chloride Flush 3 ML SYRINGE IVFLUSH ×2 (08:40→16:02)
[2023-09-04] MEDS: NIFEdipine ER 60 MG TAB.ER.24 PO (08:40)
[2023-09-04] MEDS: dexAMETHasone sod phosphate 4 MG/ML VIAL 6 MG IVPUSH (08:40)
[2023-09-04] MEDS: Aspirin Enteric Coated 81 MG TABLET.DR PO (08:40)
[2023-09-04] MEDS: 0.9 % Sodium Chloride 1,000 ML 75 ML IVCONT ×2 (08:41→22:45)
--- NOTE | 2023-09-04 10:49 | PM.PNCARD ---
Subjective Subjective Date of Service: 09/04/23 Interval history: Patient denies any chest pain. She states she is feeling tired but otherwise okay. Review of Systems Review of Systems Yes all other systems are reviewed and are negative Constitutional: Reports as per HPI and Reports no additional constitutional complaints Eyes: Reports as per HPI and Denies no additional eye complaints Denies system reviewed and no additional complaints, except as documented and Reports as per HPI Cardiovascular: Reports as per HPI, Reports no additional cardiovascular complaints, Denies acrocyanosis, Denies cool extremities, Denies chest pain, Denies leg edema, Denies lightheadedness, Denies palpitations and Denies dyspnea Respiratory: Reports as per HPI, Denies no additional respiratory complaints and Denies dyspnea Gastrointestinal: Reports as per HPI and Denies no additional gastrointestinal complaints Genitourinary: Reports as per HPI Musculoskeletal: Reports no additional musculoskeletal complaints and Reports as per HPI Skin/Breast: Reports system reviewed and no additional complaints, except as docu Reports system reviewed and no additional complaints, except as documented and Reports as per HPI Psychiatric: Reports no additional psychiatric complaints and Reports as per HPI Endocrine: Reports no additional endocrine complaints, Reports as per HPI and Denies palpitations Hematologic/Lymphatic: Reports no additional hematologic/lymphatic complaints and Reports as per HPI Allergic/Immunologic: Reports no additional allergic/immunologic complaints and Reports as per HPI Physical Exam Vital Signs: Last Vital Signs Temp 97.1 F 09/04/23 07:45 Pulse 96 09/04/23 08:10 Resp 18 09/04/23 08:10 BP 118/58 L 09/04/23 07:45 Pulse Ox 99 09/04/23 07:45 O2 Del Method Nasal Cannula 09/04/23 07:45 O2 Flow Rate 2 09/04/23 07:45 BMI result Body Mass Index 33.9 Const General: comfortable and no acute distress Orientation/consciousness: patient oriented x3 HEENT Other: Unremarkable Head: Yes normal to inspection Neck Neck: Yes normal visual inspection Chest Chest palpation & inspection: normal inspection of the chest Resp Auscultation: clear to auscultation bilaterally Cardio Palpation: normal PMI Heart sounds: S1 normal heart sound present, S2 normal heart sound present, no gallops, no murmurs and no rubs GI Palpation (GI): Soft to palpation Back/Spine/Pelvis Other: unremarkable Skin General skin exam: no rashes or lesions noted Neuro General: patient oriented x3 Extrem General: Yes normal to inspection Psych Mental Status: mental status grossly normal Objective Labs and Meds 09/04/23 06:11 09/04/23 06:11 Lab results: Laboratory Results - last 24 hr 09/03/23 09/03/23 09/03/23 03:59 10:30 15:30 WBC RBC Hgb Hct MCV MCH MCHC RDW Plt Count MPV Immature Gran % (Auto) Neut % (Auto) Lymph % (Auto) [place] % (Auto) Eos % (Auto) Baso % (Auto) Lymph # (Auto) [place] # (Auto) Eos # (Auto) Baso # (Auto) Abs Immat Gran (auto) Absolute Neuts (auto) Absolute Nucleated RBC Nucleated RBC % (auto) Smear Tech's Comments Hold Purple Top SEE NOTE aPTT Heparin Protocol Sodium Potassium Chloride Carbon Dioxide Anion Gap BUN Creatinine Estim Creat Clear Calc Estimated GFR Random Glucose Osmolality Calcium Troponin I High Sens 1277.5 H* Procalcitonin 20.66 09/03/23 09/03/23 09/04/23 15:34 21:10 06:11 WBC 19.1 H RBC 3.97 L Hgb 10.7 L Hct 31.9 L MCV 80.4 MCH 27.0 MCHC 33.5 RDW 17.0 H Plt Count 213 MPV 9.7 Immature Gran % (Auto) 0.5 H Neut % (Auto) 91.8 H Lymph % (Auto) 3.7 L [place] % (Auto) 3.9 Eos % (Auto) 0.0 Baso % (Auto) 0.1 Lymph # (Auto) 0.7 L [place] # (Auto) 0.7 Eos # (Auto) 0.0 Baso # (Auto) 0.0 Abs Immat Gran (auto) 0.10 H Absolute Neuts (auto) 17.5 H Absolute Nucleated RBC 0.000 Nucleated RBC % (auto) 0.0 Smear Tech's Comments VERIFIED Hold Purple Top aPTT Heparin Protocol 66.9 94.1 H D 47.4 L D Sodium 130 L Potassium 4.8 Chloride 100 Carbon Dioxide 16 L Anion Gap 19 BUN 50 H Creatinine 2.33 H Estim Creat Clear Calc 23.7 Estimated GFR 20 Random Glucose 82 Osmolality 283 Calcium 9.1 Troponin I High Sens Procalcitonin Imaging Radiologist's impression: Impressions Chest CT 09/03/23 14:29 IMPRESSION: Limited study. Scattered primarily juxtapleural bilateral pulmonary opacities. Motion limits assessment but there may be slight interval worsening. Increasing but still relatively small pericardial fluid collection. Fleischner guidelines were followed. Progress Note: A&P Assessment and plan (1) NSTEMI (non-ST elevated myocardial infarction): Status: Acute (2) COVID-19: Status: Acute (3) Acute hypoxemic respiratory failure: Status: Acute Plan EKG shows anterior T inversions as well as some nonspecific changes with frequent PVCs. Troponin levels are 1404, 1890. Cardiac BNP 7374. In the past, 356. Elevated renal function. Chest x-ray report have mild CHF. COVID positive. Echocardiogram with hyperdynamic LVEF. Moderate pericardial effusion. No tamponade. [id number] pulmonary hypertension. No obvious valvular issues. CT chest reported to have small pericardial effusion. Bilateral pulmonary opacities. Marker coronary artery calcification. Overall, NSTEMI in the setting of COVID. Treat with IV heparin 48 hours, aspirin, beta-blockers, statins. Due to increasing kidney function, not suitable for catheterization at this time. Hydrate. Consider renal consultation. Once renal function is more stable, then likely transferred to [facility] for cardiac catheterization. Discussed with Dr. Beckman. Time Spent With Patient Time: Total time managing care of this patient today ____ minutes. Progress Note: Quality Stroke Does the patient have a stroke diagnosis?: No Procedures Date of Service Date of Service: 09/04/23
--- NOTE | 2023-09-04 11:17 | HO.PM.IMPN ---
Subjective Subjective Date of Service: 09/04/23 Interval History: Seen and evaluated this morning feeling weak and tired Cr trending up , Na 130 On heparin drip Review of Systems Review of Systems: Yes all other systems are reviewed and are negative Physical Exam Vital Signs: Vital Signs: Last Vital Signs Temp 97.1 F 09/04/23 07:45 Pulse 96 09/04/23 08:10 Resp 18 09/04/23 08:10 BP 118/58 L 09/04/23 07:45 Pulse Ox 99 09/04/23 07:45 O2 Del Method Nasal Cannula 09/04/23 07:45 O2 Flow Rate 2 09/04/23 07:45 BMI result Body Mass Index 33.9 Const: Other: Constitutional : Awake, interactive, not in distress Neck : Normal inspection, Supple Cardiovascular : RRR, no JVP, trace lower extremity edema Respiratory : decreased bilateral air entry, no crackles, expiratory wheezes Gastrointestinal: soft, lax, Normal bowel sounds, Non tender Skin : Warm, Dry Neurological : Alert & oriented x3, No focal deficit Objective Data Active Medications Acetaminophen (Acetaminophen 325 Mg Tablet) 650 mg PO Q6H PRN PRN Reason: Pain, Mild (Pain Scale 1-3) Last Admin: 09/03/23 20:59 Dose: 650 mg Documented By: BHAVESH Albuterol/Ipratropium (Albuterol/Iprat 2.5/0.5mg 3 Ml Ampul.Neb) 3 ml INHALE RQ6H WHILE AWAKE [facility] Last Admin: 09/04/23 08:09 Dose: 3 ml Documented By: JUSTICE Alprazolam (Alprazolam 0.5 Mg Tablet) 1 mg PO BEDTIME PRN PRN Reason: Anxiety Last Admin: 09/03/23 20:59 Dose: 1 mg Documented By: BHAVESH Aspirin (Aspirin Enteric Coated 81 Mg Tablet.) 81 mg PO DAILY [facility] Last Admin: 09/04/23 08:40 Dose: 81 mg Documented By: DAKOTAH Atorvastatin Calcium (Atorvastatin Calcium 40 Mg Tablet) 40 mg PO BEDTIME [facility] Last Admin: 09/03/23 20:59 Dose: 40 mg Documented By: BHAVESH Dexamethasone Sodium Phosphate (Dexamethasone Sod Phosphate 4 Mg/Ml Vial) 6 mg IVPUSH DAILY [facility] Last Admin: 09/04/23 08:40 Dose: 6 mg Documented By: DAKOTAH Heparin Sodium (Porcine) (Heparin Sodium,Porcine 5,000 Unit/Ml Vial) 3,700 unit 40 unit/kg (3700 unit) IVPUSH PROTOCOL BOLUS PRN; Protocol PRN Reason: 40 unit/kg - Heparin Protocol Last Admin: 09/04/23 08:30 Dose: 3,700 unit Documented By: DAKOTAH Heparin Sodium (Porcine) (Heparin Sodium,Porcine 5,000 Unit/Ml Vial) 7,400 unit 80 unit/kg (7400 unit) IVPUSH PROTOCOL BOLUS PRN; Protocol PRN Reason: 80 unit/kg - Heparin Protocol Heparin Sodium/Sodium Chloride (Heparin Sodium,Porcine/1/2ns) 25,000 unit in 250 mls @ 0 mls/hr IVCONT .Q0M [facility]; Protocol Last Titration: 09/04/23 08:31 Dose: 9 units/kg/hr, 8.32 mls/hr Documented By: DAKOTAH Co-signed By: ANDRE Ceftriaxone Sodium 1 gm/ (Sodium Chloride) 50 mls @ 100 mls/hr IV Q24H [facility] Last Infusion: 09/03/23 21:35 Dose: Infused Documented By: BHAVESH Azithromycin 500 mg/ Sodium (Chloride) 250 mls @ 125 mls/hr IV Q24H [facility] Last Infusion: 09/03/23 18:00 Dose: Infused Documented By: SASKIA Sodium Chloride (Ns) 1,000 mls @ 75 mls/hr IVCONT .[id number] [facility] Last Admin: 09/04/23 08:41 Dose: 75 mls/hr Documented By: DAKOTAH Levalbuterol HCl (Levalbuterol Hcl 1.25 Mg/3 Ml Vial.Neb) 1.25 mg INHALE Q2H PRN PRN Reason: Shortness of Breath/Wheezing Melatonin (Melatonin 3 Mg Tablet) 6 mg PO BEDTIME PRN PRN Reason: Insomnia Metoprolol Tartrate (Metoprolol Tartrate 50 Mg Tablet) 50 mg PO BID [facility]; Protocol Last Admin: 09/04/23 08:40 Dose: 50 mg Documented By: DAKOTAH Morphine Sulfate (Morphine Sulfate 2 Mg/Ml Cartridge) 2 mg IVPUSH Q4H PRN; Protocol PRN Reason: Pain, Severe (Pain Scale 7-10) Last Admin: 09/04/23 05:08 Dose: 2 mg Documented By: VERÓNICA Nifedipine (Nifedipine Er 60 Mg Tab.Er.24) 60 mg PO DAILY [facility]; Protocol Last Admin: 09/04/23 08:40 Dose: 60 mg Documented By: DAKOTAH Nitroglycerin (Nitroglycerin 0.4 Mg Tab.Subl) 0.4 mg SUBLINGUAL Q5MX3 PRN PRN Reason: Chest Pain Ondansetron HCl (Ondansetron Hcl 4 Mg/2 Ml Vial) 4 mg IVPUSH Q8H PRN PRN Reason: Nausea and Vomiting Sodium Chloride (0.9 % Sodium Chloride Flush 3 Ml Syringe) 3 ml IVFLUSH QSHIFT RITESH Last Admin: 09/04/23 08:40 Dose: 3 ml Documented By: DAKOTAH Labs 09/04/23 06:11 09/04/23 06:11 Labs: Laboratory Results - last 24 hr 09/03/23 09/03/23 09/03/23 03:59 15:30 15:34 MCV MCH MCHC RDW Plt Count MPV Immature Gran % (Auto) Neut % (Auto) Lymph % (Auto) [place] % (Auto) Eos % (Auto) Baso % (Auto) Lymph # (Auto) [place] # (Auto) Eos # (Auto) Baso # (Auto) Abs Immat Gran (auto) Absolute Neuts (auto) Absolute Nucleated RBC Nucleated RBC % (auto) Smear Tech's Comments Hold Purple Top SEE NOTE aPTT Heparin Protocol 66.9 Anion Gap Estim Creat Clear Calc Estimated GFR Random Glucose Osmolality 283 Calcium Procalcitonin 20.66 09/03/23 09/04/23 21:10 06:11 MCV 80.4 MCH 27.0 MCHC 33.5 RDW 17.0 H Plt Count 213 MPV 9.7 Immature Gran % (Auto) 0.5 H Neut % (Auto) 91.8 H Lymph % (Auto) 3.7 L [place] % (Auto) 3.9 Eos % (Auto) 0.0 Baso % (Auto) 0.1 Lymph # (Auto) 0.7 L [place] # (Auto) 0.7 Eos # (Auto) 0.0 Baso # (Auto) 0.0 Abs Immat Gran (auto) 0.10 H Absolute Neuts (auto) 17.5 H Absolute Nucleated RBC 0.000 Nucleated RBC % (auto) 0.0 Smear Tech's Comments VERIFIED Hold Purple Top aPTT Heparin Protocol 94.1 H D 47.4 L D Anion Gap 19 Estim Creat Clear Calc 23.7 Estimated GFR 20 Random Glucose 82 Osmolality Calcium 9.1 Procalcitonin Microbiology Microbiology Results: Microbiology 09/02/23 21:22 Blood Culture - Preliminary Blood - Venous No growth after 24 hours. 09/02/23 21:34 Blood Culture - Preliminary Blood - Venous No growth after 24 hours. Assessment and Plan (1) Hyponatremia: Status: Acute (2) JAISON (acute kidney injury): Status: Acute (3) COVID-19: Status: Acute (4) Acute hypoxemic respiratory failure: Status: Acute (5) NSTEMI (non-ST elevated myocardial infarction): Status: Acute Plan This is a 72-year-old female with pertinent history of restrictive lung disease, essential hypertension, gastroesophageal reflux disease who presents to the emergency department for evaluation of dyspnea. Acute hypoxemic respiratory failure secondary to COVID 19 also has underlying restrictive lung disease Monitor oxygen saturation and wean as tolerated, breathing treatments management for COVID 19 COVID 19 Continue IV decadron ID , no need for Remdisivir supportive care, supplemental oxygen NSTEMI trop 1404, 1890, trend trop until begins to trend down continue heparin drip ASA, statin, continue metoprolol echo pending cardiology following CHF, unspecified BNP significantly elevated at 7374, and CXR with mild CHF initially treated with diuretics, but clinically does not appear to be in CHF will stop IV lasix, hold baseline lasix await echo JAISON on CKD3 SCr baseline 1.3, up to 2.7 Hold nephrotoxic nephrology consult follow renal function Pneumonia Azithromycin and Ceftriaxone 3-5 days Pending urine antigens Hyponatremia, acute on chronic urine studies Hold Diuretics nephrology consult follow BMP HTN on hydralazine, nifedipine, metoprolol, olmesartan will resume metoprolol in light of NSTEMI olmesartan on hold for JAISON resume other meds as bp allows leukocytosis possibly reactive received empiric ceftriaxone check procalcitonin Gastroesophageal reflux disease: On PPI DVT prophylaxis: IV heparin code status - full code attending - Dr. Muhammad Will require ongoing inpatient hospital stay for management of respiratory failure, NSTEMI requiring supplemental oxygen, IV heparin, specialist evaluation and close monitoring of cardiopulmonary status Time Spent With Patient Time: Total time managing care of this patient today ____ minutes. Quality Stroke Does the patient have a stroke diagnosis?: No VTE Prior VTE?: No VTE Risk Level:: Medical - moderate - high VTE Device Contraindication: Treatment Not Indicated VTE Drug Contraindication: N/A - Med Ordered
[2023-09-04 15:35] LABS: PTT Heparin Drip 76.3 SEC (53-77.9)
[2023-09-04] MEDS: Azithromycin 500 MG in 0.9 % Sodium Chloride 250 ML 125 MG IV (16:02)
[2023-09-04 16:22] LABS: Appearance Urine Cloudy; Color Urine Dark Yellow; Glucose Urine UA Negative (Negative); Leukocyte Esterase Urine Negative (Negative); Nitrite Urine Negative (Negative); UMIC TRIGGER UA YES; Urine Blood Small (1+) (Negative); Urine Ketones Negative (Negative); Urine Protein Trace mg/dL (Neg-Trace)
[2023-09-04 16:43] LABS: Sodium Urine Random < 20.0 mmol/L
[2023-09-04 16:46] LABS: Osmolality Urine 441 mosm/kg (373-1093)
[2023-09-04 16:49] LABS: Creatinine Urine 170.55 mg/dL; Total Protein Urine Random 30 mg/dL (<12)
[2023-09-04] MEDS: Atorvastatin Calcium 40 MG TABLET PO (21:55)
[2023-09-04] MEDS: cefTRIAXone sodium 1 GM in 0.9 % Sodium Chloride 50 ML IV (21:56)
[2023-09-04] MEDS: ALPRAZolam 0.5 MG TABLET 1 MG PO (22:52)
[2023-09-05] VITALS (8 sets, daily range): BP systolic 108–158; BP diastolic 58–76; PULSE 74–103; RESP 18–22; TEMP 36.5–36.9; O2SAT 95–99
[2023-09-05] MEDS: Heparin Sodium,Porcine/1/2NS 25,000 UNIT/250 ML IV.SOLN 11 UNIT IVCONT (00:40)
[2023-09-05 00:59] LABS: Bacteria Urine None Seen (None Seen); Hyaline Casts Urine >20 /LPF (0-2); WBC Urine 0-5 /HPF (0-5)
[2023-09-05 04:57] LABS: Hematocrit 31.8 % (37.0-47.0); Hemoglobin 10.7 g/dl (12.0-16.0); Mean Corpuscular HGB Conc 33.6 g/dl (31.0-35.0); Mean Corpuscular Hemoglobin 27.6 pg (27.0-33.0); Mean Corpuscular Volume 82.2 fL (80.0-98.0); Mean Platelet Volume 9.8 fL (9.4-12.3); Platelet Count 179 X10*3/uL (160-400); Red Blood Count 3.87 X10*6/uL (4.20-5.50); Red Cell Distribution Width 17.3 % (11.0-16.0); White Blood Count 18.9 X10*3/uL (4.8-10.8)
[2023-09-05 05:05] LABS: PTT Heparin Drip 104.1 SEC (53-77.9)
[2023-09-05 05:10] LABS: Anion Gap 18 (12-20); Blood Urea Nitrogen 54 mg/dL (9-16); Calcium 8.9 mg/dL (8.4-10.2); Carbon Dioxide 15 mmol/L (22-29); Chloride 100 mmol/L (96-108); Creatinine Clr Calc Pharmacy 30.1; Estimated Glomerular Filt Rate 27; Glucose Random 93 mg/dL (60-115); Potassium 4.8 mmol/L (3.3-5.1); Sodium 128 mmol/L (135-145)
[2023-09-05] MEDS: Albuterol/Iprat 2.5/0.5MG 3 ML AMPUL.NEB INHALE ×3 (07:54→20:25)
[2023-09-05 08:13] LABS: PTT Heparin Drip 55.3 SEC (53-77.9)
[2023-09-05] MEDS: dexAMETHasone sod phosphate 4 MG/ML VIAL 6 MG IVPUSH (09:03)
[2023-09-05] MEDS: NIFEdipine ER 60 MG TAB.ER.24 PO (09:03)
[2023-09-05] MEDS: Metoprolol Tartrate 50 MG TABLET PO ×2 (09:03→19:32)
[2023-09-05] MEDS: Aspirin Enteric Coated 81 MG TABLET.DR PO (09:03)
--- NOTE | 2023-09-05 10:55 | P.PNIM_ITS ---
Subjective Subjective Date of Service: 09/05/23 Interval History: Seen and evaluated this morning feeling weak and tired Cr trending down , Na 128 On heparin drip , no reported chest pain Review of Systems Review of Systems: Yes all other systems are reviewed and are negative Physical Exam 2 Vital Signs: Vital Signs: Last Vital Signs Temp 97.7 F 09/05/23 07:35 Pulse 93 09/05/23 07:54 Resp 18 09/05/23 07:54 BP 140/64 H 09/05/23 07:35 Pulse Ox 99 09/05/23 07:35 O2 Del Method Nasal Cannula 09/05/23 07:35 O2 Flow Rate 4 09/05/23 07:35 BMI result Body Mass Index 33.9 Const: Other: Constitutional : Awake, interactive, not in distress Neck : Normal inspection, Supple Cardiovascular : RRR, no JVP, trace lower extremity edema Respiratory : decreased bilateral air entry, no crackles, fine expiratory wheezes Gastrointestinal: soft, lax, Normal bowel sounds, Non tender Skin : Warm, Dry Neurological : Alert & oriented x3, No focal deficit Objective Data Active Medications Acetaminophen (Acetaminophen 325 Mg Tablet) 650 mg PO Q6H PRN PRN Reason: Pain, Mild (Pain Scale 1-3) Last Admin: 09/03/23 20:59 Dose: 650 mg Documented By: BHAVESH Albuterol/Ipratropium (Albuterol/Iprat 2.5/0.5mg 3 Ml Ampul.Neb) 3 ml INHALE RQ6H WHILE AWAKE [facility] Last Admin: 09/05/23 07:54 Dose: 3 ml Documented By: CHERRIE Alprazolam (Alprazolam 0.5 Mg Tablet) 1 mg PO BEDTIME PRN PRN Reason: Anxiety Last Admin: 09/04/23 22:52 Dose: 1 mg Documented By: JESUS Aspirin (Aspirin Enteric Coated 81 Mg Tablet.) 81 mg PO DAILY [facility] Last Admin: 09/05/23 09:03 Dose: 81 mg Documented By: GALINA Atorvastatin Calcium (Atorvastatin Calcium 40 Mg Tablet) 40 mg PO BEDTIME [facility] Last Admin: 09/04/23 21:55 Dose: 40 mg Documented By: JESUS Dexamethasone Sodium Phosphate (Dexamethasone Sod Phosphate 4 Mg/Ml Vial) 6 mg IVPUSH DAILY [facility] Last Admin: 09/05/23 09:03 Dose: 6 mg Documented By: GALINA Heparin Sodium (Porcine) (Heparin Sodium,Porcine 5,000 Unit/Ml Vial) 3,700 unit 40 unit/kg (3700 unit) IVPUSH PROTOCOL BOLUS PRN; Protocol PRN Reason: 40 unit/kg - Heparin Protocol Last Admin: 09/04/23 22:44 Dose: 3,700 unit Documented By: JESUS Heparin Sodium (Porcine) (Heparin Sodium,Porcine 5,000 Unit/Ml Vial) 7,400 unit 80 unit/kg (7400 unit) IVPUSH PROTOCOL BOLUS PRN; Protocol PRN Reason: 80 unit/kg - Heparin Protocol Heparin Sodium/Sodium Chloride (Heparin Sodium,Porcine/1/2ns) 25,000 unit in 250 mls @ 0 mls/hr IVCONT .Q0M [facility]; Protocol Last Titration: 09/05/23 09:00 Dose: 8.66 units/kg/hr, 8 mls/hr Documented By: GALINA Co-signed By: INEZ Ceftriaxone Sodium 1 gm/ (Sodium Chloride) 50 mls @ 100 mls/hr IV Q24H [facility] Last Infusion: 09/04/23 22:52 Dose: Infused Documented By: JESUS Azithromycin 500 mg/ Sodium (Chloride) 250 mls @ 125 mls/hr IV Q24H [facility] Last Infusion: 09/04/23 18:15 Dose: Infused Documented By: DAKOTAH Sodium Chloride (Ns) 1,000 mls @ 75 mls/hr IVCONT .[id number] [facility] Last Admin: 09/05/23 09:03 Dose: Not Given Documented By: GALINA Non-Admin Reason: IV Running Levalbuterol HCl (Levalbuterol Hcl 1.25 Mg/3 Ml Vial.Neb) 1.25 mg INHALE Q2H PRN PRN Reason: Shortness of Breath/Wheezing Melatonin (Melatonin 3 Mg Tablet) 6 mg PO BEDTIME PRN PRN Reason: Insomnia Metoprolol Tartrate (Metoprolol Tartrate 50 Mg Tablet) 50 mg PO BID [facility]; Protocol Last Admin: 09/05/23 09:03 Dose: 50 mg Documented By: GALINA Morphine Sulfate (Morphine Sulfate 2 Mg/Ml Cartridge) 2 mg IVPUSH Q4H PRN; Protocol PRN Reason: Pain, Severe (Pain Scale 7-10) Last Admin: 09/04/23 21:56 Dose: 2 mg Documented By: JESUS Nifedipine (Nifedipine Er 60 Mg Tab.Er.24) 60 mg PO DAILY [facility]; Protocol Last Admin: 09/05/23 09:03 Dose: 60 mg Documented By: GALINA Nitroglycerin (Nitroglycerin 0.4 Mg Tab.Subl) 0.4 mg SUBLINGUAL Q5MX3 PRN PRN Reason: Chest Pain Ondansetron HCl (Ondansetron Hcl 4 Mg/2 Ml Vial) 4 mg IVPUSH Q8H PRN PRN Reason: Nausea and Vomiting Sodium Chloride (0.9 % Sodium Chloride Flush 3 Ml Syringe) 3 ml IVFLUSH QSHIFT [facility] Last Admin: 09/05/23 09:03 Dose: Not Given Documented By: GALINA Non-Admin Reason: IV Running Labs 09/05/23 04:49 09/05/23 04:49 Labs: Laboratory Results - last 24 hr 09/04/23 09/04/23 09/04/23 15:18 16:08 21:30 MCV MCH MCHC RDW Plt Count MPV Absolute Nucleated RBC Nucleated RBC % (auto) Hold Purple Top aPTT Heparin Protocol 76.3 D 52.0 L D Anion Gap Estim Creat Clear Calc Estimated GFR Random Glucose Calcium Urine Color Dark Yellow Urine Appearance Cloudy Urine pH 5.0 Ur Specific [place] 1.020 Urine Protein Trace Urine Glucose (UA) Negative Urine Ketones Negative Urine Blood Small (1+) H Urine Nitrite Negative Ur Leukocyte Esterase Negative Urine RBC 6-10 H Urine WBC 0-5 Ur Squamous Epith Cells 3-5 Urine Bacteria None Seen Hyaline Casts >20 Urine Osmolality 441 U Random Total Protein 30 H Ur Random Sodium < 20.0 Urine Creatinine 170.55 09/05/23 09/05/23 09/05/23 04:49 07:47 07:52 MCV 82.2 MCH 27.6 MCHC 33.6 RDW 17.3 H Plt Count 179 MPV 9.8 Absolute Nucleated RBC 0.000 Nucleated RBC % (auto) 0.0 Hold Purple Top SEE NOTE aPTT Heparin Protocol 104.1 H D 55.3 D Anion Gap 18 Estim Creat Clear Calc 30.1 Estimated GFR 27 Random Glucose 93 Calcium 8.9 Urine Color Urine Appearance Urine pH Ur Specific [place] Urine Protein Urine Glucose (UA) Urine Ketones Urine Blood Urine Nitrite Ur Leukocyte Esterase Urine RBC Urine WBC Ur Squamous Epith Cells Urine Bacteria Hyaline Casts Urine Osmolality U Random Total Protein Ur Random Sodium Urine Creatinine Microbiology Microbiology Results: Microbiology 09/02/23 21:22 Blood Culture - Preliminary Blood - Venous No growth after 48 hours. 09/02/23 21:34 Blood Culture - Preliminary Blood - Venous No growth after 48 hours. Assessment and Plan (1) CKD (chronic kidney disease) stage 3, GFR 30-59 ml/min: Status: Acute (2) Hyponatremia: Status: Acute (3) JAISON (acute kidney injury): Status: Acute (4) Acute hypoxemic respiratory failure: Status: Acute (5) NSTEMI (non-ST elevated myocardial infarction): Status: Acute (6) CHF exacerbation: Status: Acute Plan This is a 72-year-old female with pertinent history of restrictive lung disease, essential hypertension, gastroesophageal reflux disease who presents to the emergency department for evaluation of dyspnea. Acute hypoxemic respiratory failure secondary to COVID 19 in ILD wean as tolerated, breathing treatments Continue IV decadron ID , no need for Remdisivir supportive care, supplemental oxygen NSTEMI trop 1404, 1890, 1200 trop begins to trend down continue heparin drip for 72 hours ASA, statin, continue metoprolol echo No WMA, EF 70%, small effusion cardiology following CHF, unspecified BNP significantly elevated at 7374, and CXR with mild CHF initially treated with diuretics, but clinically does not appear to be in CHF will stop IV lasix, hold baseline lasix await echo JAISON on CKD3 SCr baseline 1.3, up to 2.7, no trending down Hold nephrotoxic nephrology consult follow renal function Pneumonia Azithromycin and Ceftriaxone 3-5 days Pending urine antigens Hyponatremia, acute on chronic Stable 128-130 , around baseline Hold Diuretics nephrology consult follow BMP HTN on hydralazine, nifedipine, metoprolol, olmesartan will resume metoprolol in light of NSTEMI olmesartan on hold for JAISON resume other meds as bp allows leukocytosis possibly reactive received empiric ceftriaxone check procalcitonin Gastroesophageal reflux disease: On PPI DVT prophylaxis: IV heparin code status - full code attending - Dr. Muhammad Will require ongoing inpatient hospital stay for management of respiratory failure, NSTEMI requiring supplemental oxygen, IV heparin, specialist evaluation and close monitoring of cardiopulmonary status Time Spent With Patient Time: Total time managing care of this patient today ____ minutes. Quality Stroke Does the patient have a stroke diagnosis?: No VTE Prior VTE?: No VTE Risk Level:: Medical - moderate - high VTE Device Contraindication: Treatment Not Indicated VTE Drug Contraindication: N/A - Med Ordered
--- NOTE | 2023-09-05 11:26 | PM.PNCARD ---
Subjective Subjective Date of Service: 09/05/23 Principal diagnosis: NSTEMI, SHARAN Interval history: Patient's creatinine is gradually improving although still elevated compared to baseline. No chest pain. Shortness of breath as per her is improving. She also has noticed to have more productive cough at this point in time. Review of Systems Constitutional: Reports no additional constitutional complaints Cardiovascular: Denies chest pain, Denies leg edema, Denies lightheadedness, Denies palpitations and Reports dyspnea Respiratory: Reports cough, Reports excessive phlegm production and Reports dyspnea Gastrointestinal: Reports no additional gastrointestinal complaints Reports system reviewed and no additional complaints, except as documented Endocrine: Denies palpitations Physical Exam Vital Signs: Last Vital Signs Temp 97.9 F 09/05/23 11:22 Pulse 86 09/05/23 11:22 Resp 18 09/05/23 11:22 BP 129/58 L 09/05/23 11:22 Pulse Ox 98 09/05/23 11:22 O2 Del Method Nasal Cannula 09/05/23 11:22 O2 Flow Rate 2 09/05/23 11:22 BMI result Body Mass Index 33.9 Const General: comfortable and no acute distress Orientation/consciousness: patient oriented x3 HEENT Other: Unremarkable Head: Yes normal to inspection Neck Neck: Yes normal visual inspection Chest Chest palpation & inspection: normal inspection of the chest Resp Auscultation: clear to auscultation bilaterally Cardio Palpation: normal PMI Heart sounds: S1 normal heart sound present, S2 normal heart sound present, no gallops, no murmurs and no rubs GI Palpation (GI): Soft to palpation Back/Spine/Pelvis Other: unremarkable Skin General skin exam: no rashes or lesions noted Neuro General: patient oriented x3 Extrem General: Yes normal to inspection Psych Mental Status: mental status grossly normal Objective Labs and Meds 09/05/23 04:49 09/05/23 04:49 Lab results: Laboratory Results - last 24 hr 09/04/23 09/04/23 09/04/23 15:18 16:08 21:30 WBC RBC Hgb Hct MCV MCH MCHC RDW Plt Count MPV Absolute Nucleated RBC Nucleated RBC % (auto) Hold Purple Top aPTT Heparin Protocol 76.3 D 52.0 L D Sodium Potassium Chloride Carbon Dioxide Anion Gap BUN Creatinine Estim Creat Clear Calc Estimated GFR Random Glucose Calcium Urine Color Dark Yellow Urine Appearance Cloudy Urine pH 5.0 Ur Specific [place] 1.020 Urine Protein Trace Urine Glucose (UA) Negative Urine Ketones Negative Urine Blood Small (1+) H Urine Nitrite Negative Ur Leukocyte Esterase Negative Urine RBC 6-10 H Urine WBC 0-5 Ur Squamous Epith Cells 3-5 Urine Bacteria None Seen Hyaline Casts >20 Urine Osmolality 441 U Random Total Protein 30 H Ur Random Sodium < 20.0 Urine Creatinine 170.55 09/05/23 09/05/23 09/05/23 04:49 07:47 07:52 WBC 18.9 H RBC 3.87 L Hgb 10.7 L Hct 31.8 L MCV 82.2 MCH 27.6 MCHC 33.6 RDW 17.3 H Plt Count 179 MPV 9.8 Absolute Nucleated RBC 0.000 Nucleated RBC % (auto) 0.0 Hold Purple Top SEE NOTE aPTT Heparin Protocol 104.1 H D 55.3 D Sodium 128 L Potassium 4.8 Chloride 100 Carbon Dioxide 15 L Anion Gap 18 BUN 54 H Creatinine 1.84 H Estim Creat Clear Calc 30.1 Estimated GFR 27 Random Glucose 93 Calcium 8.9 Urine Color Urine Appearance Urine pH Ur Specific [place] Urine Protein Urine Glucose (UA) Urine Ketones Urine Blood Urine Nitrite Ur Leukocyte Esterase Urine RBC Urine WBC Ur Squamous Epith Cells Urine Bacteria Hyaline Casts Urine Osmolality U Random Total Protein Ur Random Sodium Urine Creatinine Imaging Radiologist's impression: Impressions Renal Ultrasound 09/04/23 13:00 IMPRESSION: 1. No nephrolithiasis or hydronephrosis. 2. Mildly prominent gallbladder without calculus. Progress Note: A&P Assessment and plan (1) NSTEMI (non-ST elevated myocardial infarction): Status: Acute Assessment and Plan: Patient with NSTEMI in the setting of COVID with down trending troponins. No chest pain. Echocardiogram shows normal LV ejection fraction with moderate LVH. She does appear to give me a history of claudication which is limiting her mobility as outpatient. She is improving from COVID perspective. However continues to have elevated creatinine with SHARAN. Not overtly in congestive heart failure although BNP significantly elevated could be related to SHARAN and ischemia. There is likelihood of underlying significant coronary artery disease. However given her acute medical illness as well as Sharan I would continue manage conservatively. Continue aspirin and would add Plavix to her regimen. High-intensity statin therapy and beta-blockers as tolerated. Continue treatment for her underlying COVID. Continue to monitor her creatinine. If she develops ongoing signs of myocardial ischemia and/or heart failure may consider cardiac catheterization. Otherwise would pursue outpatient myocardial perfusion imaging in 2 weeks. Will follow the patient. Time Spent With Patient Time: Total time managing care of this patient today ____ minutes. Progress Note: Quality Stroke Does the patient have a stroke diagnosis?: No Procedures Date of Service Date of Service: 09/05/23
--- NOTE | 2023-09-05 12:39 | P.CDIM_ITS ---
PROVIDER RESPONSE TEXT: To clarify, the appropriate diagnosis supported by the clinical indicators: NSTEMI due to demand ischemia QUERY TEXT: PHYSICIAN'S DOCUMENTATION REQUEST Date of Query: 09/05/2023 09:46 AM EDT Patient Name: Tg Luong Admit Date: 09/03/2023 Dear Beti Beckman, A review of the medical record indicates additional documentation may be needed. Please review below and update the documentation accordingly. Clinical Indicators: Cardiology progress note: Troponin levels are 1404, 1890. Echocardiogram with hyperdynamic LVEF. Mode rate pericardial effusion. No tamponade. Mild to moderate pulmonary hypertension. Treat with IV heparin 48 hours, aspirin, beta-blockers, statins. Once renal function is stable then likely transferred to [facility] for cardiac catheter ization. Please clarify the type of the documented NSTEMI: DE Type 2 please specific NSTEMI due to demand ischemia Other specifics to the NSTEMI if known Other (explain)Clinically unable to determine (explain)Thank you, Aure Hendrickson, CCS, CDIS Use of terms such as suspected, likely, concern for, or probable (associated with a specific diagnosi s that is being evaluated, monitored, or treated as if it exists) are acceptable and can be coded in the inpatient se tting, when documented at the time of discharge. Please use your independent medical judgment in providing your response. THIS QUERY IS PART OF THE PERMANENT MEDICAL RECORD
--- NOTE | 2023-09-05 12:39 | P.CDIM_ITS ---
PROVIDER RESPONSE TEXT: To clarify, the appropriate diagnosis supported by the clinical indicators: Sepsis is/was present and is a clinical diagnosis based on QUERY TEXT: PHYSICIAN'S DOCUMENTATION REQUEST Date of Query: 09/05/2023 08:24 AM EDT Patient Name: Tg Luong Admit Date: 09/03/2023 Dear Beti Beckman, A review of the medical record indicates additional documentation may be needed. Please review below and update the documentation accordingly. Clinical indicators: Progress note dated 09/03- Addendum: Sepsis - meets sepsis criteria with leukocytes, bandemia, tachyc ardia Initially thought r/t viral sepsis from covid, possible bacterial component. Will start ceftriaxone, azithromycin WBC 19 LA 1.6 Temp 100.4 Bands 26 RR 26 Sepsis Systemic manifestations of infection, with 2 or more SIRS criteria which include: Fever > 100.4?F or hypothermia < 96.8?F Leukocytosis WBC > 12,000 or leukopenia, WBC < 4,000, or > 10% bands Tachycardia- > 90 beats/minute Tachypnea- RR > 20 breaths/minute or PaCO2 < 32mmHg Based on the above information and the recognized standard for sepsis, could you please clarify if th is diagnoses is still accurate and reflective of the patient's condition to ensure quality of the medical record. Sepsis is/was present and is a clinical diagnosis based on After study (the condition) has been ruled out Other (explain)Clinically unable to determine (explain)Thank you, Aure Hendrickson, CCS, CDIS Use of terms such as suspected, likely, concern for, or probable (associated with a specific diagnosi s that is being evaluated, monitored, or treated as if it exists) are acceptable and can be coded in the inpatient se tting, when documented at the time of discharge. Please use your independent medical judgment in providing your response. THIS QUERY IS PART OF THE PERMANENT MEDICAL RECORD
[2023-09-05] MEDS: Heparin Sodium,Porcine 5,000 UNIT/ML VIAL 3700 UNIT IVPUSH (13:13)
[2023-09-05] MEDS: 0.9 % Sodium Chloride 1,000 ML 75 ML IVCONT (13:17)
--- NOTE | 2023-09-05 13:47 | HO.THORCONS ---
History of Present Illness Consult details Consult date: 09/05/23 Narrative: Patient is a 72 year old female with a plethora of medical problems who presented here with combination of shortness of breath, and non ST elevated myocardial infarction. During workup, patient had a variety of studies and scans , including CT scan the chest was demonstrates a small pericardial effusion. Patient had cardiac consultation with an echo which confirmed a small non compromising pericardial effusion. No hemodynamic evidence of tamponade Chart was reviewed patient evaluated PMF Past Medical History Medical History Exertional dyspnea Restrictive lung disease Smoker Family History Family History Father CAD (coronary artery disease) Family history: reviewed and not pertinent Social History Social History Household Members: Family Housing: Apartment Do you presently have visiting nurse or other home services: No Alcohol intake: never Patient Tobacco Use Status: Current everyday Tobacco user Tobacco use type: Cigarette Cigarette Packs Per Day: 0.5 Cigarettes Per Day: 4 Years Smoked: 53 service: No Meds Allergies Allergy/AdvReac Type Severity Reaction Status Date / Time pollen extracts Allergy Mild mild Verified 02/15/22 13:52 Active Medications: Current Medications Acetaminophen (Acetaminophen 325 Mg Tablet) 650 mg PO Q6H PRN PRN Reason: Pain, Mild (Pain Scale 1-3) Last Admin: 09/03/23 20:59 Dose: 650 mg Albuterol/Ipratropium (Albuterol/Iprat 2.5/0.5mg 3 Ml Ampul.Neb) 3 ml INHALE RQ6H WHILE AWAKE [facility] Last Admin: 09/05/23 13:32 Dose: 3 ml Alprazolam (Alprazolam 0.5 Mg Tablet) 1 mg PO BEDTIME PRN PRN Reason: Anxiety Last Admin: 09/04/23 22:52 Dose: 1 mg Aspirin (Aspirin Enteric Coated 81 Mg Tablet.) 81 mg PO DAILY [facility] Last Admin: 09/05/23 09:03 Dose: 81 mg Atorvastatin Calcium (Atorvastatin Calcium 40 Mg Tablet) 40 mg PO BEDTIME [facility] Last Admin: 09/04/23 21:55 Dose: 40 mg Dexamethasone Sodium Phosphate (Dexamethasone Sod Phosphate 4 Mg/Ml Vial) 6 mg IVPUSH DAILY [facility] Last Admin: 09/05/23 09:03 Dose: 6 mg Heparin Sodium (Porcine) (Heparin Sodium,Porcine 5,000 Unit/Ml Vial) 3,700 unit 40 unit/kg (3700 unit) IVPUSH PROTOCOL BOLUS PRN; Protocol PRN Reason: 40 unit/kg - Heparin Protocol Last Admin: 09/05/23 13:13 Dose: 3,700 unit Heparin Sodium (Porcine) (Heparin Sodium,Porcine 5,000 Unit/Ml Vial) 7,400 unit 80 unit/kg (7400 unit) IVPUSH PROTOCOL BOLUS PRN; Protocol PRN Reason: 80 unit/kg - Heparin Protocol Heparin Sodium/Sodium Chloride (Heparin Sodium,Porcine/1/2ns) 25,000 unit in 250 mls @ 0 mls/hr IVCONT .Q0M [facility]; Protocol Last Titration: 09/05/23 13:14 Dose: 10.66 units/kg/hr, 9.85 mls/hr Ceftriaxone Sodium 1 gm/ (Sodium Chloride) 50 mls @ 100 mls/hr IV Q24H [facility] Last Infusion: 09/04/23 22:52 Dose: Infused Azithromycin 500 mg/ Sodium (Chloride) 250 mls @ 125 mls/hr IV Q24H [facility] Last Infusion: 09/04/23 18:15 Dose: Infused Sodium Chloride (Ns) 1,000 mls @ 75 mls/hr IVCONT .[id number] [facility] Last Admin: 09/05/23 13:17 Dose: 75 mls/hr Levalbuterol HCl (Levalbuterol Hcl 1.25 Mg/3 Ml Vial.Neb) 1.25 mg INHALE Q2H PRN PRN Reason: Shortness of Breath/Wheezing Melatonin (Melatonin 3 Mg Tablet) 6 mg PO BEDTIME PRN PRN Reason: Insomnia Metoprolol Tartrate (Metoprolol Tartrate 50 Mg Tablet) 50 mg PO BID [facility]; Protocol Last Admin: 09/05/23 09:03 Dose: 50 mg Morphine Sulfate (Morphine Sulfate 2 Mg/Ml Cartridge) 2 mg IVPUSH Q4H PRN; Protocol PRN Reason: Pain, Severe (Pain Scale 7-10) Last Admin: 09/04/23 21:56 Dose: 2 mg Nifedipine (Nifedipine Er 60 Mg Tab.Er.24) 60 mg PO DAILY [facility]; Protocol Last Admin: 09/05/23 09:03 Dose: 60 mg Nitroglycerin (Nitroglycerin 0.4 Mg Tab.Subl) 0.4 mg SUBLINGUAL Q5MX3 PRN PRN Reason: Chest Pain Ondansetron HCl (Ondansetron Hcl 4 Mg/2 Ml Vial) 4 mg IVPUSH Q8H PRN PRN Reason: Nausea and Vomiting Sodium Bicarbonate (Sodium Bicarbonate 650 Mg Tablet) 650 mg PO TID [facility] Sodium Chloride (0.9 % Sodium Chloride Flush 3 Ml Syringe) 3 ml IVFLUSH QSHIFT [facility] Last Admin: 09/05/23 09:03 Dose: Not Given Home Medications Medication Instructions Recorded Confirmed Last Taken Type alprazolam 1 mg tablet 1 mg PO BEDTIME PRN Anxiety 12/17/21 09/02/23 09/01/23 History doxazosin 2 mg tablet 2 mg PO BID 12/17/21 09/02/23 09/02/23 History furosemide 20 mg tablet 20 mg PO DAILY 12/17/21 09/02/23 09/02/23 History metoprolol tartrate 50 mg tablet 50 mg PO BID 12/17/21 09/02/23 09/02/23 History olmesartan 40 mg tablet 40 mg PO DAILY 12/17/21 09/02/23 09/02/23 History albuterol sulfate 90 mcg/actuation 2 puff inhalation Q4H PRN wheezing 09/02/23 09/02/23 Unknown History aerosol inhaler cyanocobalamin (vitamin B-12) 1,000 mcg PO DAILY 09/02/23 09/02/23 09/02/23 History 1,000 mcg tablet hydralazine 10 mg tablet 10 mg PO TID 09/02/23 09/02/23 09/02/23 History ketoconazole 2 % topical cream 1 appl topical BID 09/02/23 09/02/23 09/02/23 History nifedipine 60 mg tablet,extended 60 mg PO DAILY 09/02/23 09/02/23 09/02/23 History release 24 hr Physical Exam Vital Signs: Vital Signs: Last Vital Signs Temp 97.9 F 09/05/23 11:22 Pulse 92 09/05/23 13:33 Resp 18 09/05/23 13:33 BP 129/58 L 09/05/23 11:22 Pulse Ox 98 09/05/23 11:22 O2 Del Method Nasal Cannula 09/05/23 11:22 O2 Flow Rate 2 09/05/23 11:22 BMI result Body Mass Index 33.9 Const: Other: Elderly female, in very mild respiratory distress which she states is her baseline. Chest: Other: Chest breath sounds bilaterally, consistent with COPD. HS 1 in 2. No obvious massive JVD. GI: Other: Abdomen soft, modestly corpulent, benign Results Labs 09/05/23 04:49 09/05/23 04:49 Labs: Abnormal lab results 09/04/23 09/04/23 09/05/23 Range/Units 16:08 21:30 04:49 WBC 18.9 H (4.8-10.8) X10*3/uL RBC 3.87 L (4.20-5.50) X10*6/uL Hgb 10.7 L (12.0-16.0) g/dl Hct 31.8 L (37.0-47.0) % RDW 17.3 H (11.0-16.0) % aPTT Heparin Protocol 52.0 L D 104.1 H D (53-77.9) SEC Sodium 128 L (135-145) mmol/L Carbon Dioxide 15 L (22-29) mmol/L BUN 54 H (9-16) mg/dL Creatinine 1.84 H (0.5-1.4) mg/dL Urine Blood Small (1+) H (Negative) Urine RBC 6-10 H (0-2) /HPF U Random Total Protein 30 H (<12) mg/dL 09/05/23 Range/Units 12:32 WBC (4.8-10.8) X10*3/uL RBC (4.20-5.50) X10*6/uL Hgb (12.0-16.0) g/dl Hct (37.0-47.0) % RDW (11.0-16.0) % aPTT Heparin Protocol 52.0 L (53-77.9) SEC Sodium (135-145) mmol/L Carbon Dioxide (22-29) mmol/L BUN (9-16) mg/dL Creatinine (0.5-1.4) mg/dL Urine Blood (Negative) Urine RBC (0-2) /HPF U Random Total Protein (<12) mg/dL Short CBC 09/05/23 Range/Units 04:49 WBC 18.9 H (4.8-10.8) X10*3/uL Hgb 10.7 L (12.0-16.0) g/dl Hct 31.8 L (37.0-47.0) % Plt Count 179 (160-400) X10*3/uL BMP 09/05/23 04:49 Sodium 128 L Potassium 4.8 Chloride 100 Carbon Dioxide 15 L BUN 54 H Creatinine 1.84 H Calcium 8.9 Urine 09/04/23 Range/Units 16:08 Urine Color Dark Yellow Urine Appearance Cloudy Urine pH 5.0 (5.0-9.0) Ur Specific [place] 1.020 (1.005-1.025) Urine Protein Trace (Neg-Trace) mg/dL Urine Glucose (UA) Negative (Negative) mg/dL All other labs normal. Assessment and Plan (1) Pericardial effusion without cardiac tamponade: Status: Acute Plan At present, no acute thoracic surgical issues. Patient is being treated for her respiratory and cardiac issues. Will follow-up p.r.n.. Time Spent With Patient Time: Total time managing care of this patient today ____ minutes. Procedures Date of Service Date of Service: 09/05/23
--- NOTE | 2023-09-05 14:17 | MHC.CM.PN ---
EMR reviewed and per MD rounds, pt is not medically cleared for D/C due to covid-19 infection, NSTEMI requiring supplemental oxygen, and IV heparin, requiring close monitoring. CM will continue to follow.
[2023-09-05] MEDS: Azithromycin 500 MG in 0.9 % Sodium Chloride 250 ML 125 MG IV (14:59)
[2023-09-05] MEDS: Sodium Bicarbonate 650 MG TABLET PO ×2 (15:00→19:32)
[2023-09-05 15:53] LABS: PTT Heparin Drip 142.9 SEC (53-77.9)
[2023-09-05 18:16] LABS: PTT Heparin Drip 44.1 SEC (53-77.9)
[2023-09-05] MEDS: Morphine Sulfate 2 MG/ML CARTRIDGE IVPUSH (19:31)
[2023-09-05] MEDS: cefTRIAXone sodium 1 GM in 0.9 % Sodium Chloride 50 ML IV (19:31)
[2023-09-05] MEDS: Atorvastatin Calcium 40 MG TABLET PO (19:32)
[2023-09-05] MEDS: 0.9 % Sodium Chloride Flush 3 ML SYRINGE IVFLUSH (19:32)
[2023-09-06] VITALS (10 sets, daily range): BP systolic 102–161; BP diastolic 64–82; PULSE 78–97; RESP 16–20; TEMP 36.1–36.7; O2SAT 93–98
[2023-09-06] MEDS: Heparin Sodium,Porcine/1/2NS 25,000 UNIT/250 ML IV.SOLN 6.15 UNIT IVCONT (00:55)
[2023-09-06] MEDS: ALPRAZolam 0.5 MG TABLET 1 MG PO (01:08)
[2023-09-06 01:14] LABS: PTT Heparin Drip 41.1 SEC (53-77.9)
[2023-09-06] MEDS: Heparin Sodium,Porcine 5,000 UNIT/ML VIAL 3700 UNIT IVPUSH (01:29)
--- NOTE | 2023-09-06 03:11 | PC.NURSE ---
pt verbalizes inability to urinate. purewick in place. pt unable to start stream of urine. bladder scan approximately 700 mL. MD notified, ordered straight cath. pt straight cathed, output of 475. pt verbalizes relief.
[2023-09-06] MEDS: 0.9 % Sodium Chloride 1,000 ML 75 ML IVCONT (04:40)
[2023-09-06] MEDS: Albuterol/Iprat 2.5/0.5MG 3 ML AMPUL.NEB INHALE ×3 (08:12→19:49)
[2023-09-06 08:34] LABS: Hematocrit 27.2 % (37.0-47.0); Hemoglobin 9.2 g/dl (12.0-16.0); Mean Corpuscular HGB Conc 33.8 g/dl (31.0-35.0); Mean Corpuscular Hemoglobin 26.9 pg (27.0-33.0); Mean Corpuscular Volume 79.5 fL (80.0-98.0); Mean Platelet Volume 9.9 fL (9.4-12.3); NRBC Pct Auto 0.1 /100WBC (0.0-0.2); Platelet Count 193 X10*3/uL (160-400); Red Blood Count 3.42 X10*6/uL (4.20-5.50); White Blood Count 18.8 X10*3/uL (4.8-10.8)
[2023-09-06 08:45] LABS: PTT Heparin Drip 79.7 SEC (53-77.9)
[2023-09-06 09:08] LABS: Anion Gap 12 (12-20); Blood Urea Nitrogen 51 mg/dL (9-16); Calcium 8.7 mg/dL (8.4-10.2); Carbon Dioxide 18 mmol/L (22-29); Chloride 104 mmol/L (96-108); Creatinine Clr Calc Pharmacy 46.6; Estimated Glomerular Filt Rate 44; Glucose Random 117 mg/dL (60-115); Potassium 4.3 mmol/L (3.3-5.1); Sodium 130 mmol/L (135-145)
[2023-09-06] MEDS: Sodium Bicarbonate 650 MG TABLET PO ×3 (09:31→19:41)
[2023-09-06] MEDS: Clopidogrel Bisulfate 75 MG TABLET PO (09:31)
[2023-09-06] MEDS: Metoprolol Tartrate 50 MG TABLET PO ×2 (09:31→19:41)
[2023-09-06] MEDS: Aspirin Enteric Coated 81 MG TABLET.DR PO (09:31)
[2023-09-06] MEDS: NIFEdipine ER 30 MG TAB.ER.24 PO ×2 (09:31→13:15)
[2023-09-06] MEDS: dexAMETHasone sod phosphate 4 MG/ML VIAL 6 MG IVPUSH (09:32)
[2023-09-06] MEDS: 0.9 % Sodium Chloride Flush 3 ML SYRINGE IVFLUSH (09:32)
--- NOTE | 2023-09-06 10:40 | PM.PNCARD ---
Subjective Subjective Date of Service: 09/06/23 Principal diagnosis: NSTEMI, JAISON Interval history: Patient denies any chest pain. Continues to be short of breath and has productive phlegm. Also says that shortness of breath was laying down. Denies any palpitations, lightheadedness, syncope. Review of Systems Constitutional: Reports weakness Eyes: Reports no additional eye complaints Cardiovascular: Denies chest pain, Reports dyspnea and Reports orthopnea Respiratory: Reports cough, Reports excessive phlegm production and Reports dyspnea Reports weakness Physical Exam Vital Signs: Last Vital Signs Temp 97.8 F 09/06/23 07:52 Pulse 96 09/06/23 08:14 Resp 20 09/06/23 08:14 BP 161/72 H 09/06/23 07:52 Pulse Ox 98 09/06/23 07:52 O2 Del Method Nasal Cannula 09/06/23 07:52 O2 Flow Rate 2 09/06/23 07:52 BMI result Body Mass Index 33.9 Const General: comfortable and no acute distress Orientation/consciousness: patient oriented x3 HEENT Other: Unremarkable Head: Yes normal to inspection Neck Neck: Yes normal visual inspection Chest Chest palpation & inspection: normal inspection of the chest Resp Auscultation: rhonchi and wheezes Cardio Palpation: normal PMI Heart sounds: S1 normal heart sound present, S2 normal heart sound present, no gallops, no murmurs and no rubs GI Palpation (GI): Soft to palpation Back/Spine/Pelvis Other: unremarkable Skin General skin exam: no rashes or lesions noted Neuro General: patient oriented x3 Extrem General: Yes normal to inspection Psych Mental Status: mental status grossly normal Objective Labs and Meds 09/06/23 07:53 09/06/23 07:53 Lab results: Laboratory Results - last 24 hr 09/05/23 09/05/23 09/05/23 12:32 15:17 17:46 WBC RBC Hgb Hct MCV MCH MCHC RDW Plt Count MPV Absolute Nucleated RBC Nucleated RBC % (auto) aPTT Heparin Protocol 52.0 L 142.9 H* D 44.1 L D Sodium Potassium Chloride Carbon Dioxide Anion Gap BUN Creatinine Estim Creat Clear Calc Estimated GFR Random Glucose Calcium 09/06/23 09/06/23 00:46 07:53 WBC 18.8 H RBC 3.42 L Hgb 9.2 L Hct 27.2 L MCV 79.5 L MCH 26.9 L MCHC 33.8 RDW 17.0 H Plt Count 193 MPV 9.9 Absolute Nucleated RBC 0.020 H Nucleated RBC % (auto) 0.1 aPTT Heparin Protocol 41.1 L 79.7 H D Sodium 130 L Potassium 4.3 Chloride 104 Carbon Dioxide 18 L Anion Gap 12 BUN 51 H Creatinine 1.19 Estim Creat Clear Calc 46.6 Estimated GFR 44 Random Glucose 117 H Calcium 8.7 Progress Note: A&P Assessment and plan (1) Acute hypoxemic respiratory failure: Status: Acute Assessment and Plan: Acute hypoxemic respiratory failure which appears to be secondary to pulmonary infection related to COVID although there is no significant pneumonic process going on. Heart failure cannot be entirely ruled out but appears to be less likely although she has significant elevated BNP which is probably due to reduced renal clearance. At this point time will continue supportive care. Continue oxygen supplementation. Continue monitor strict intake and output chart. Does sudden worsening and/or other evidence of heart failure may need diuretic therapy at that point in time. Overall prognosis is guarded. (2) NSTEMI (non-ST elevated myocardial infarction): Status: Acute Assessment and Plan: NSTEMI with acute respiratory failure which appears to be pulmonary in nature. Continue management for the same. For management of NSTEMI will be conservative at this point in time with medical therapy with aspirin, Plavix, high-intensity statin therapy in if possible beta-yadi therapy will continue to aggressively manage blood pressure. Given her underlying multiple comorbidities including acute kidney injury would hold off on invasive cardiac catheterization. Once her pulmonary status improves and can pursue outpatient myocardial perfusion imaging with vaso dilator. If clinical condition gradually deteriorate and/or is evidence of further myocardial ischemia would consider cardiac catheterization as inpatient. Will sign of the case at this point time. Thank you for allowing me to partake in her care Time Spent With Patient Time: Total time managing care of this patient today ____ minutes. Progress Note: Quality Stroke Does the patient have a stroke diagnosis?: No Procedures Date of Service Date of Service: 09/06/23
--- NOTE | 2023-09-06 12:48 | HO.PM.IMPN ---
Subjective Subjective Date of Service: 09/06/23 Interval History: Seen and evaluated this morning weak and tired Cr trending down , Na 130 Finished heparin drip , no reported chest pain Review of Systems Review of Systems: Yes all other systems are reviewed and are negative Physical Exam Vital Signs: Vital Signs: Last Vital Signs Temp 97.1 F 09/06/23 11:12 Pulse 78 09/06/23 11:12 Resp 20 09/06/23 11:12 BP 160/71 H 09/06/23 11:12 Pulse Ox 96 09/06/23 11:12 O2 Del Method Nasal Cannula 09/06/23 11:12 O2 Flow Rate 2 09/06/23 11:12 BMI result Body Mass Index 33.9 Const: Other: Constitutional : Awake, interactive, not in distress Neck : Normal inspection, Supple Cardiovascular : RRR, no JVP, trace lower extremity edema Respiratory : decreased bilateral air entry, no crackles, fine expiratory wheezes Gastrointestinal: soft, lax, Normal bowel sounds, Non tender Skin : Warm, Dry Neurological : Alert & oriented x3, No focal deficit Objective Data Active Medications Acetaminophen (Acetaminophen 325 Mg Tablet) 650 mg PO Q6H PRN PRN Reason: Pain, Mild (Pain Scale 1-3) Last Admin: 09/03/23 20:59 Dose: 650 mg Documented By: BHAVESH Albuterol/Ipratropium (Albuterol/Iprat 2.5/0.5mg 3 Ml Ampul.Neb) 3 ml INHALE RQ6H WHILE AWAKE [facility] Last Admin: 09/06/23 08:12 Dose: 3 ml Documented By: SHARON Alprazolam (Alprazolam 0.5 Mg Tablet) 1 mg PO BEDTIME PRN PRN Reason: Anxiety Last Admin: 09/06/23 01:08 Dose: 1 mg Documented By: JESUS Aspirin (Aspirin Enteric Coated 81 Mg Tablet.) 81 mg PO DAILY [facility] Last Admin: 09/06/23 09:31 Dose: 81 mg Documented By: SARTHAK Atorvastatin Calcium (Atorvastatin Calcium 40 Mg Tablet) 40 mg PO BEDTIME [facility] Last Admin: 09/05/23 19:32 Dose: 40 mg Documented By: JESUS Clopidogrel Bisulfate (Clopidogrel Bisulfate 75 Mg Tablet) 75 mg PO DAILY [facility] Last Admin: 10/24/23 09:31 Dose: 75 mg Documented By: SARTHAK Dexamethasone Sodium Phosphate (Dexamethasone Sod Phosphate 4 Mg/Ml Vial) 6 mg IVPUSH DAILY [facility] Last Admin: 09/06/23 09:32 Dose: 6 mg Documented By: SARTHAK Ceftriaxone Sodium 1 gm/ (Sodium Chloride) 50 mls @ 100 mls/hr IV Q24H [facility] Last Infusion: 09/05/23 20:20 Dose: Infused Documented By: NAUN Azithromycin 500 mg/ Sodium (Chloride) 250 mls @ 125 mls/hr IV Q24H [facility] Last Infusion: 09/05/23 17:09 Dose: Infused Documented By: GALINA Levalbuterol HCl (Levalbuterol Hcl 1.25 Mg/3 Ml Vial.Neb) 1.25 mg INHALE Q2H PRN PRN Reason: Shortness of Breath/Wheezing Melatonin (Melatonin 3 Mg Tablet) 6 mg PO BEDTIME PRN PRN Reason: Insomnia Metoprolol Tartrate (Metoprolol Tartrate 50 Mg Tablet) 50 mg PO BID [facility]; Protocol Last Admin: 09/06/23 09:31 Dose: 50 mg Documented By: SARTHAK Morphine Sulfate (Morphine Sulfate 2 Mg/Ml Cartridge) 2 mg IVPUSH Q4H PRN; Protocol PRN Reason: Pain, Severe (Pain Scale 7-10) Last Admin: 09/05/23 19:31 Dose: 2 mg Documented By: JESUS Nifedipine (Nifedipine Er 30 Mg Tab.Er.24) 30 mg PO DAILY [facility]; Protocol Last Admin: 09/06/23 09:31 Dose: 30 mg Documented By: SARTHAK Nitroglycerin (Nitroglycerin 0.4 Mg Tab.Subl) 0.4 mg SUBLINGUAL Q5MX3 PRN PRN Reason: Chest Pain Ondansetron HCl (Ondansetron Hcl 4 Mg/2 Ml Vial) 4 mg IVPUSH Q8H PRN PRN Reason: Nausea and Vomiting Sodium Bicarbonate (Sodium Bicarbonate 650 Mg Tablet) 650 mg PO TID [facility] Last Admin: 09/06/23 09:31 Dose: 650 mg Documented By: SARTHAK Sodium Chloride (0.9 % Sodium Chloride Flush 3 Ml Syringe) 3 ml IVFLUSH QSHIFT [facility] Last Admin: 09/06/23 09:32 Dose: 3 ml Documented By: SARTHAK Labs 09/06/23 07:53 09/06/23 07:53 Labs: Laboratory Results - last 24 hr 09/05/23 09/05/23 09/05/23 12:32 15:17 17:46 MCV MCH MCHC RDW Plt Count MPV Absolute Nucleated RBC Nucleated RBC % (auto) aPTT Heparin Protocol 52.0 L 142.9 H* D 44.1 L D Anion Gap Estim Creat Clear Calc Estimated GFR Random Glucose Calcium 09/06/23 09/06/23 00:46 07:53 MCV 79.5 L MCH 26.9 L MCHC 33.8 RDW 17.0 H Plt Count 193 MPV 9.9 Absolute Nucleated RBC 0.020 H Nucleated RBC % (auto) 0.1 aPTT Heparin Protocol 41.1 L 79.7 H D Anion Gap 12 Estim Creat Clear Calc 46.6 Estimated GFR 44 Random Glucose 117 H Calcium 8.7 Assessment and Plan (1) Pericardial effusion without cardiac tamponade: Status: Acute (2) Hyponatremia: Status: Acute (3) JAISON (acute kidney injury): Status: Acute (4) Acute hypoxemic respiratory failure: Status: Acute (5) NSTEMI (non-ST elevated myocardial infarction): Status: Acute (6) CHF exacerbation: Status: Acute Plan This is a 72-year-old female with pertinent history of restrictive lung disease, essential hypertension, gastroesophageal reflux disease who presents to the emergency department for evaluation of dyspnea. Acute hypoxemic respiratory failure secondary to COVID 19 in ILD wean as tolerated, breathing treatments Continue IV decadron (09/02) ID , no need for Remdisivir supportive care, supplemental oxygen NSTEMI trop 1404, 1890, 1200 trop begins to trend down Finished heparin drip for 72 hours ASA, statin, continue metoprolol echo No WMA, EF 70%, small effusion cardiology following, add Plavix and for outpatient stress testing CHF, diastolic BNP significantly elevated at 7374, and CXR with mild CHF initially treated with diuretics, but clinically does not appear to be in CHF will stop IV lasix, restart home dose lasix Echo showed EF >70% JAISON on CKD3 improved back to baseline 1.2 Hold nephrotoxic nephrology consult follow renal function Pneumonia Azithromycin and Ceftriaxone 3-5 days Pending urine antigens Hyponatremia, acute on chronic Stable 128-130 , around baseline Hold Diuretics nephrology following, likely due to Covid follow BMP HTN on hydralazine, nifedipine, metoprolol, olmesartan will resume metoprolol in light of NSTEMI olmesartan on hold for JAISON resume other meds as bp allows leukocytosis possibly reactive received empiric ceftriaxone check procalcitonin Gastroesophageal reflux disease: On PPI DVT prophylaxis Alcides Will require ongoing inpatient hospital stay for management of respiratory failure pending safe discharge plan Time Spent With Patient Time: Total time managing care of this patient today ____ minutes. Quality Stroke Does the patient have a stroke diagnosis?: No VTE Prior VTE?: No VTE Risk Level:: Medical - moderate - high VTE Device Contraindication: Treatment Not Indicated VTE Drug Contraindication: N/A - Med Ordered
[2023-09-06] MEDS: Furosemide 20 MG TABLET PO (13:14)
[2023-09-06] MEDS: Enoxaparin Sodium 40 MG/0.4 ML SYRINGE SUBCUT (13:14)
[2023-09-06] MEDS: Azithromycin 500 MG in 0.9 % Sodium Chloride 250 ML 125 MG IV (15:32)
[2023-09-06] MEDS: Morphine Sulfate 2 MG/ML CARTRIDGE IVPUSH (19:39)
[2023-09-06] MEDS: cefTRIAXone sodium 1 GM in 0.9 % Sodium Chloride 50 ML IV (19:40)
[2023-09-06] MEDS: Atorvastatin Calcium 40 MG TABLET PO (19:41)
--- NOTE | 2023-09-06 21:33 | PM.EVENT ---
Event Note Date of Service: 09/06/23 Event Note: Patient with urinary retention. Has been straight cathed multiple times in the last 2 days. Will order Wallace catheter Time Spent With Patient Time: Total time managing care of this patient today ____ minutes.
[2023-09-07 03:43] VITALS: BP 149/65; PULSE 89; RESP 20; TEMP 36.4; O2SAT 96
--- NOTE | 2023-09-07 04:34 | PC.NURSE ---
pt expressed urge to urinate without ability to initiate stream. per grain packer pt up to commode and able to urinate only 100 mL. pt asked specifically to have Corral reinserted instead of intermittent straight cath. around 2199 md notified. corral ordered. 800 mL drained upon insertion at 2214. urine clear, pale yellow, and noted to have strong odor. tube clamped. pt expressed relief. unclamped around 2244. catheter draining cyu.
[2023-09-07 07:07] LABS: Hemoglobin 9.3 g/dl (12.0-16.0); Mean Corpuscular HGB Conc 33.2 g/dl (31.0-35.0); Mean Corpuscular Hemoglobin 26.7 pg (27.0-33.0); Mean Corpuscular Volume 80.5 fL (80.0-98.0); Mean Platelet Volume 9.9 fL (9.4-12.3); NRBC Pct Auto 0.1 /100WBC (0.0-0.2); Platelet Count 232 X10*3/uL (160-400); Red Blood Count 3.48 X10*6/uL (4.20-5.50); Red Cell Distribution Width 17.2 % (11.0-16.0); White Blood Count 20.9 X10*3/uL (4.8-10.8)
[2023-09-07 07:22] LABS: Anion Gap 14 (12-20); Blood Urea Nitrogen 51 mg/dL (9-16); Calcium 8.9 mg/dL (8.4-10.2); Carbon Dioxide 16 mmol/L (22-29); Chloride 107 mmol/L (96-108); Creatinine Clr Calc Pharmacy 60.9; Estimated Glomerular Filt Rate > 60; Glucose Random 103 mg/dL (60-115); Potassium 4.4 mmol/L (3.3-5.1); Sodium 133 mmol/L (135-145)
[2023-09-07 07:54] VITALS: BP 172/80; PULSE 100; RESP 21; TEMP 36.7; O2SAT 98
[2023-09-07] MEDS: Albuterol/Iprat 2.5/0.5MG 3 ML AMPUL.NEB INHALE (08:15)
[2023-09-07 08:16] VITALS: PULSE 72; RESP 16; O2SAT 94
[2023-09-07] MEDS: Aspirin Enteric Coated 81 MG TABLET.DR PO (09:39)
[2023-09-07] MEDS: Clopidogrel Bisulfate 75 MG TABLET PO (09:39)
[2023-09-07] MEDS: Metoprolol Tartrate 50 MG TABLET PO (09:39)
[2023-09-07] MEDS: 0.9 % Sodium Chloride Flush 3 ML SYRINGE IVFLUSH (09:39)
[2023-09-07] MEDS: dexAMETHasone sod phosphate 4 MG/ML VIAL 6 MG IVPUSH (09:39)
[2023-09-07] MEDS: Sodium Bicarbonate 650 MG TABLET PO ×2 (09:39→14:07)
[2023-09-07] MEDS: NIFEdipine ER 30 MG TAB.ER.24 60 MG PO (09:40)
[2023-09-07 10:38] LABS: B Type Natriuretic Peptide 2024 pg/mL (<100)
--- NOTE | 2023-09-07 10:43 | PM.PNCARD ---
Subjective Subjective Date of Service: 09/07/23 Principal diagnosis: NSTEMI, JAISON Interval history: Patient continues to have shortness of breath. Patient continues to have trouble laying flat which shortness of breath. No chest pain. Kidney function improved significantly almost back to baseline. BNP done just today shows BNP in the 2000 range. Review of Systems Constitutional: Reports no additional constitutional complaints Cardiovascular: Reports dyspnea and Reports orthopnea Respiratory: Reports dyspnea and Reports wheezing Gastrointestinal: Reports no additional gastrointestinal complaints Allergic/Immunologic: Reports no additional allergic/immunologic complaints and Reports wheezing Physical Exam Vital Signs: Last Vital Signs Temp 98.0 F 09/07/23 07:54 Pulse 72 09/07/23 08:16 Resp 16 09/07/23 08:16 BP 172/80 H 09/07/23 07:54 Pulse Ox 98 09/07/23 07:54 O2 Del Method Nasal Cannula 09/07/23 07:54 O2 Flow Rate 1 09/07/23 07:54 BMI result Body Mass Index 33.9 Const General: cooperative and in distress moderate and respiratory Nutritional Appearance: obese Orientation/consciousness: patient oriented x3 Neck Neck: Yes trachea midline and Yes supple Resp Effort & Inspection: normal respiratory effort Auscultation: wheezes throughout Cardio Rate: regular rate Rhythm: regular rhythm Heart sounds: S1 normal heart sound present, S2 normal heart sound present, no click, no gallops, no murmurs and no rubs Skin General skin exam: ecchymosis Neuro General: patient oriented x3 and no focal motor deficits Objective Labs and Meds 09/07/23 06:11 09/07/23 06:11 Lab results: Laboratory Results - last 24 hr 09/07/23 09/07/23 06:11 09:40 WBC 20.9 H RBC 3.48 L Hgb 9.3 L Hct 28.0 L MCV 80.5 MCH 26.7 L MCHC 33.2 RDW 17.2 H Plt Count 232 MPV 9.9 Absolute Nucleated RBC 0.030 H Nucleated RBC % (auto) 0.1 Sodium 133 L Potassium 4.4 Chloride 107 Carbon Dioxide 16 L Anion Gap 14 BUN 51 H Creatinine 0.91 Estim Creat Clear Calc 60.9 Estimated GFR > 60 Random Glucose 103 Calcium 8.9 B-Natriuretic Peptide 2024 H Progress Note: A&P Assessment and plan (1) NSTEMI (non-ST elevated myocardial infarction): Status: Acute Assessment and Plan: Patient with NSTEMI with high likelihood of underlying coronary artery disease. Patient also having significant shortness of breath which is suggestive of congestive heart failure. LV ejection fraction is preserved. I think patient benefit from cardiac catheterization given that her COVID status is 5-day-old and her JAISON has improved. We discussed about the need for cardiac catheterization including evaluation for coronary anatomy and hemodynamics. This was discussed with the patient and her brother. She is currently having issues with shortness of breath, see below. Will need further aggressive treatment from the same perspective. Will transfer to [facility] if accepted today. Continue aspirin, statins and beta-blockers. We discussed the risks, benefits, alternatives cardiac catheterization and she understands and agrees. (2) Acute hypoxemic respiratory failure: Status: Acute Assessment and Plan: Patient significant shortness of breath with significant bronchospasm. This in addition to elevated BNP there is suggestion of both heart failure which could be related to significant ischemic heart disease. IV diuresis Lasix 40 mg b.i.d.. Strict intake and output chart. Also consider aggressive broncho dilators therapy with Xopenex. She is currently already on steroid therapy. Will follow with you Time Spent With Patient Time: Total time managing care of this patient today ____ minutes. Progress Note: Quality Stroke Does the patient have a stroke diagnosis?: No Procedures Date of Service Date of Service: 09/07/23
--- NOTE | 2023-09-07 11:05 | P.PNIM_ITS ---
Subjective Subjective Date of Service: 09/07/23 Interval History: weak, more sob today Physical Exam 2 Vital Signs: Vital Signs: Last Vital Signs Temp 98.0 F 09/07/23 07:54 Pulse 72 09/07/23 08:16 Resp 16 09/07/23 08:16 BP 172/80 H 09/07/23 07:54 Pulse Ox 98 09/07/23 07:54 O2 Del Method Nasal Cannula 09/07/23 07:54 O2 Flow Rate 1 09/07/23 07:54 BMI result Body Mass Index 33.9 General: AO X 3, sob Resp: wheezes bilateral, accessory muscles used CVS: S1,S2,RRR GI: soft, non tender, non distended Neuro: motor grossly intact, alert Psych: appropriate affect, appropriate insight Objective Data Active Medications Acetaminophen (Acetaminophen 325 Mg Tablet) 650 mg PO Q6H PRN PRN Reason: Pain, Mild (Pain Scale 1-3) Last Admin: 09/03/23 20:59 Dose: 650 mg Documented By: BHAVESH Albuterol/Ipratropium (Albuterol/Iprat 2.5/0.5mg 3 Ml Ampul.Neb) 3 ml INHALE RQ6H WHILE AWAKE [facility] Last Admin: 09/07/23 08:15 Dose: 3 ml Documented By: JUSTICE Alprazolam (Alprazolam 0.5 Mg Tablet) 1 mg PO BEDTIME PRN PRN Reason: Anxiety Last Admin: 09/06/23 01:08 Dose: 1 mg Documented By: JESUS Aspirin (Aspirin Enteric Coated 81 Mg Tablet.) 81 mg PO DAILY [facility] Last Admin: 09/07/23 09:39 Dose: 81 mg Documented By: SORAIDA Atorvastatin Calcium (Atorvastatin Calcium 40 Mg Tablet) 40 mg PO BEDTIME [facility] Last Admin: 09/06/23 19:41 Dose: 40 mg Documented By: JESUS Clopidogrel Bisulfate (Clopidogrel Bisulfate 75 Mg Tablet) 75 mg PO DAILY [facility] Last Admin: 09/07/23 09:39 Dose: 75 mg Documented By: SORAIDA Dexamethasone Sodium Phosphate (Dexamethasone Sod Phosphate 4 Mg/Ml Vial) 6 mg IVPUSH DAILY [facility] Last Admin: 09/07/23 09:39 Dose: 6 mg Documented By: SORAIDA Enoxaparin Sodium (Enoxaparin Sodium 40 Mg/0.4 Ml Syringe) 40 mg SUBCUT Q24H [facility] Last Admin: 09/06/23 13:14 Dose: 40 mg Documented By: SARTHAK Furosemide (Furosemide 40 Mg/4 Ml Vial) 40 mg IVPUSH BID@0900,1800 [facility]; Protocol Ceftriaxone Sodium 1 gm/ (Sodium Chloride) 50 mls @ 100 mls/hr IV Q24H [facility] Last Infusion: 09/06/23 22:04 Dose: Infused Documented By: JESUS Azithromycin 500 mg/ Sodium (Chloride) 250 mls @ 125 mls/hr IV Q24H [facility] Last Infusion: 09/06/23 17:35 Dose: Infused Documented By: SARTHAK Levalbuterol HCl (Levalbuterol Hcl 1.25 Mg/3 Ml Vial.Neb) 1.25 mg INHALE Q2H PRN PRN Reason: Shortness of Breath/Wheezing Melatonin (Melatonin 3 Mg Tablet) 6 mg PO BEDTIME PRN PRN Reason: Insomnia Metoprolol Tartrate (Metoprolol Tartrate 50 Mg Tablet) 50 mg PO BID [facility]; Protocol Last Admin: 09/07/23 09:39 Dose: 50 mg Documented By: SORAIDA Morphine Sulfate (Morphine Sulfate 2 Mg/Ml Cartridge) 2 mg IVPUSH Q4H PRN; Protocol PRN Reason: Pain, Severe (Pain Scale 7-10) Last Admin: 09/06/23 19:39 Dose: 2 mg Documented By: JESUS Nifedipine (Nifedipine Er 30 Mg Tab.Er.24) 60 mg PO DAILY [facility]; Protocol Last Admin: 09/07/23 09:40 Dose: 60 mg Documented By: SORAIDA Nitroglycerin (Nitroglycerin 0.4 Mg Tab.Subl) 0.4 mg SUBLINGUAL Q5MX3 PRN PRN Reason: Chest Pain Ondansetron HCl (Ondansetron Hcl 4 Mg/2 Ml Vial) 4 mg IVPUSH Q8H PRN PRN Reason: Nausea and Vomiting Sodium Bicarbonate (Sodium Bicarbonate 650 Mg Tablet) 650 mg PO TID [facility] Last Admin: 09/07/23 09:39 Dose: 650 mg Documented By: SORAIDA Sodium Chloride (0.9 % Sodium Chloride Flush 3 Ml Syringe) 3 ml IVFLUSH QSHIFT [facility] Last Admin: 09/07/23 09:39 Dose: 3 ml Documented By: SORAIDA Labs 09/07/23 06:11 09/07/23 06:11 Labs: Laboratory Results - last 24 hr 09/07/23 09/07/23 06:11 09:40 MCV 80.5 MCH 26.7 L MCHC 33.2 RDW 17.2 H Plt Count 232 MPV 9.9 Absolute Nucleated RBC 0.030 H Nucleated RBC % (auto) 0.1 Anion Gap 14 Estim Creat Clear Calc 60.9 Estimated GFR > 60 Random Glucose 103 Calcium 8.9 B-Natriuretic Peptide 2024 H Assessment and Plan (1) Pericardial effusion without cardiac tamponade: Status: Acute (2) Hyponatremia: Status: Acute (3) JAISON (acute kidney injury): Status: Acute (4) Acute hypoxemic respiratory failure: Status: Acute (5) NSTEMI (non-ST elevated myocardial infarction): Status: Acute (6) CHF exacerbation: Status: Acute Plan 72F PMH of restrictive lung disease, essential hypertension, gastroesophageal reflux disease who presented to the emergency department for evaluation of dyspnea. Acute hypoxemic respiratory failure secondary to COVID 19 in ILD wean as tolerated, breathing treatments Continue IV decadron (09/02) ID appreciated no need for Remdisivir supportive care, supplemental oxygen pulm eval NSTEMI trop 1404, 1890, 1200 trop begins to trend down Finished heparin drip for 72 hours ASA, statin, continue metoprolol echo No WMA, EF 70%, small effusion cardiology following, added Plavix plan for possible cath acute on chronic diastolic chf will restart iv lasix JAISON on CKD3 improved back to baseline Hold nephrotoxic follow renal function Pneumonia Azithromycin and Ceftriaxone 3-5 days Pending urine antigens Hyponatremia, acute on chronic Stable around baseline nephrology following, likely due to Covid follow BMP HTN on nifedipine, metoprolol will resume metoprolol in light of NSTEMI olmesartan on hold for JAISON DVT prophylaxis Lovenox full code reason for continued hospitalization:sob, iv diruesis, possible inpatient cath Time Spent With Patient Time: Total time managing care of this patient today ____ minutes. Quality Stroke Does the patient have a stroke diagnosis?: No VTE Prior VTE?: No VTE Risk Level:: Medical - moderate - high VTE Device Contraindication: Treatment Not Indicated VTE Drug Contraindication: N/A - Med Ordered
[2023-09-07 12:00] VITALS: BP 163/70; PULSE 82; RESP 18; TEMP 36.1; O2SAT 98
--- NOTE | 2023-09-07 12:10 | MHC.CM.PN ---
Addendum entered by Eleni Mcdaniel, RN 09/07/23 14:07: PT TO TXFR TO [facility] ONCE BED AVAILABLE Original Note: EMR REVIEWED, PER NSG PT TO BE TXFRD TO [facility] FOR CARDIAC CATH PENDING LABS, CM MET W/PT TO GET PERMISSION TO SPEAK W/PT'S BROTHER JOSE WHO PT VERIFIES CAN HAVE ANY INFORMATON AND IS HER HCP, PT REPORTS HER PCP [facility] GALVEZ HAS HCP AND DNR ON FILE, CM WILL FOLLOW UP W/PCP FOR DOCUMENTS AND CALL PT'S BROTHER/HCP [phone], PT AWARE [facility] DOES NOT TAKE COVID+ PTS JOSE HAD REQUESTED REFERRAL BE SENT, PT IS RECOMMENDING STR.
--- NOTE | 2023-09-07 12:20 | MHC.CM.PN ---
Addendum entered by Eleni Mcdaniel RN 09/07/23 12:27: CM ATTEMPTED TO CONTACT N[facility] GALVEZ'S OFFICE HOWEVER NO ANSWER AND UNABLE TO REACH [employer] OR MEDICAL RECORDS, DETAILED MESSAGE LEFT W/REQUEST FOR CALL BACK. Original Note: CM ATTEMPTED TO CONTACT [facility] GALVEZ'S OFFICE X3, HOWEVER CM UNABLE TO MAKE OUTGOING CALLS, CM TO REVISIT ONCE PHONES ARE BACK IN WORKING ORDER.
--- NOTE | 2023-09-07 13:36 | PM.DS ---
DS: Providers Provider Date of Service: 09/07/23 Date of admission: 09/02/23 20:23 Primary care physician: Mann Servin MD Consults: 09/02/23 20:29 Consult to Cardiology [place]ine Consulting [place] [facility] [place] [facility] Reason for consultation: CHF 09/03/23 10:33 Consult to Nephrology Routine Consulting Provider: [facility] Reason for consultation: JAISON Has provider been notified: No 09/03/23 10:40 Consult to Infectious Diseases Routine Consulting [place] [facility] [place] [facility] Reason for consultation: covid 19 Has provider been notified: No 09/03/23 13:50 Consult to Thoracic Surgery Routine Consulting Provider: Tim Valencia Reason for consultation: pericardial effusion Has provider been notified: No 09/07/23 11:04 Consult to Pulmonology Routine Consulting Provider: [facility] Reason for consultation: hypoxia, covid bronchospasms, restrictive disease pfts 2020 DS: Diagnosis Discharge Diagnosis (1) Pericardial effusion without cardiac tamponade: Status: Acute (2) Hyponatremia: Status: Acute (3) JAISON (acute kidney injury): Status: Acute (4) Acute hypoxemic respiratory failure: Status: Acute (5) NSTEMI (non-ST elevated myocardial infarction): Status: Acute (6) CHF exacerbation: Status: Acute DS: Summary Hospital Course Hospital Course: from initial hpi: 72-year-old female with pertinent history of restrictive lung disease, essential hypertension, gastroesophageal reflux disease who presents to the emergency department for evaluation of dyspnea. Patient states she has been having shortness of breath for the last 3-4 days but her dyspnea worsened 1 day prior to presentation. It is worse with ambulation. Also admits orthopnea. Unclear PND. No history of heart failure. Patient states that people around her have tested positive for COVID-19. She denies fever or chills. Minimal nonproductive cough. Patient was placed on NIV by EMS and brought to the ER. No chest discomfort, palpitations, abdominal pain, changes in urinary or bowel habits. In the emergency department, patient requiring supplemental oxygen and found to have pulmonary edema with elevated BNP. Troponin was found to be elevated and Cardiology was consulted hospital course: Patient was admitted for acute hypoxic respiratory failure secondary to interstitial lung disease with acute decompensation due to COVID. Was treated with IV Decadron, bronchodilators. Course complicated by NSTEMI, echo with small effusion no wall motion abnormality. Receive 72 hours of IV heparin, aspirin, statin, metoprolol. Initially cardiac catheterization postponed due to acute kidney injury, however this, has resolved and patient's creatinine is below baseline. She will be transferred to [facility] for cardiac catheterization. For acute on chronic diastolic CHF she has been treated with IV Lasix. For possible pneumonia she was treated with ceftriaxone azithromycin. For acute on chronic hyponatremia likely due to acute illness sodium improved to 133. For hypertension she was continued on nifedipine, metoprolol, hydralazine. Arb has been held for JAISON. Time Spent with Patient Time attestation: Total time managing care of this patient today ____ minutes. Discharge coordination time: Greater than 30 minutes Quality: Safe Use of Opioids Does Pt have an Active Cancer Diagnosis on the Problem List?: No Quality: Stroke Does the patient have a stroke diagnosis?: No Physical Exam Vital Signs: Vital Signs: Last Vital Signs Temp 96.9 F 09/07/23 12:00 Pulse 82 09/07/23 12:00 Resp 18 09/07/23 12:00 BP 163/70 H 09/07/23 12:00 Pulse Ox 98 09/07/23 12:00 O2 Del Method Nasal Cannula 09/07/23 12:00 O2 Flow Rate 1 09/07/23 12:00 BMI result Body Mass Index 33.9 General: AO X 3, sob Resp: wheezes bilateral, accessory muscles used CVS: S1,S2,RRR GI: soft, non tender, non distended Neuro: motor grossly intact, alert Psych: appropriate affect, appropriate insight DS: Data Data Completed and Pending Labs on day of discharge: Laboratory Results - last 24 hr 09/07/23 09/07/23 06:11 09:40 WBC 20.9 H RBC 3.48 L Hgb 9.3 L Hct 28.0 L MCV 80.5 MCH 26.7 L MCHC 33.2 RDW 17.2 H Plt Count 232 MPV 9.9 Absolute Nucleated RBC 0.030 H Nucleated RBC % (auto) 0.1 Sodium 133 L Potassium 4.4 Chloride 107 Carbon Dioxide 16 L Anion Gap 14 BUN 51 H Creatinine 0.91 Estim Creat Clear Calc 60.9 Estimated GFR > 60 Random Glucose 103 Calcium 8.9 B-Natriuretic Peptide 2024 H Preliminary micro results at discharge 09/02/23 21:22 Blood Culture - Preliminary Blood - Venous No growth after 48 hours. 09/02/23 21:34 Blood Culture - Preliminary Blood - Venous No growth after 48 hours. Discharge Plan Discharge Anticipated Discharge Date/Time: 09/07/23 13:33 Patient Disposition: Xfer Acute Care Hospital Discharge Diagnosis: nstemi, covid, ild Referrals: Mann Servin MD [Primary Care Provider] - 1 Week Discharge Medications: New azithromycin 500 mg Recon Soln 500 mg IV Q24H Qty: 0 0RF ceftriaxone 1 gram Recon Soln 1 g IV Q24H Qty: 0 0RF atorvastatin 40 mg Tablet 40 mg PO BEDTIME Qty: 0 0RF clopidogrel 75 mg Tablet 75 mg PO DAILY Qty: 0 0RF aspirin 81 mg Tablet,Delayed Release (Dr/Ec) 81 mg PO DAILY Qty: 0 0RF dexamethasone sodium phosphate 4 mg/mL Solution 6 mg IVPUSH DAILY Qty: 0 0RF Continued hydralazine 10 mg tablet 10 mg PO TID cyanocobalamin (vitamin B-12) 1,000 mcg tablet 1,000 mcg PO DAILY nifedipine 60 mg tablet extended release 24hr 60 mg PO DAILY albuterol sulfate 90 mcg/actuation HFA aerosol inhaler 2 puff inhalation Q4H PRN (Reason: wheezing) ketoconazole 2 % cream 1 appl topical BID furosemide 20 mg tablet 20 mg PO DAILY metoprolol tartrate 50 mg tablet 50 mg PO BID doxazosin 2 mg tablet 2 mg PO BID alprazolam 1 mg tablet 1 mg PO BEDTIME PRN (Reason: Anxiety) Held olmesartan 40 mg tablet 40 mg PO DAILY Hold Instructions: Resume on 09/13/23. Discharge Orders: Discharge Order (Routine); Ordered 09/07/23 Ordered By: Alfa Patten Diet: Advance to usual diet Activity on Discharge: As tolerated Stand Alone Forms: Patient Portal Discharge page Care Plan Goals: recovery Health Concerns: covid, ild, jaison, nstemi [place] [facility] [place] continue steroids, bronchodilators Assessment: see above
[2023-09-07] MEDS: Enoxaparin Sodium 40 MG/0.4 ML SYRINGE SUBCUT (14:07)
[2023-09-07] MEDS: Azithromycin 500 MG in 0.9 % Sodium Chloride 250 ML 125 MG IV (14:07)
[2023-09-07 16:00] VITALS: BP 141/65; PULSE 84; RESP 18; TEMP 36.1; O2SAT 96
[2023-09-08 21:23] LABS: Strep Pneumo Ag urine Not Detected (Not Detected)
[2023-09-12 00:53] LABS: Legionella Ag Urine Not Detected (Not Detected)
== END 2023-09-07 16:36 | disposition short-term general hospital (02) | DRG 871 ==
LOC: HO.ED 19:45 → HO.EDOVER 20:26 → HO.IMC 09-03 15:43
PROVIDERS: Physician Assistant Medical; Student in an Organized Health Care Education/Training Program; Admitting Provider Student in an Organized Health Care Education/Training Program; Emergency Provider Internal Medicine; PCP Internal Medicine; Visit Provider Internal Medicine
DX: A41.9 Sepsis, unspecified organism (principal); I21.A1 Myocardial infarction type 2; J96.01 Acute respiratory failure with hypoxia; U07.1 COVID-19; I50.31 Acute diastolic (congestive) heart failure; I13.0 Hypertensive heart and chronic kidney disease with heart failure and stage 1 through stage 4 chronic kidney disease, or unspecified chronic kidney disease; N17.9 Acute kidney failure, unspecified; E87.1 Hypo-osmolality and hyponatremia; R33.9 Retention of urine, unspecified; I25.10 Atherosclerotic heart disease of native coronary artery without angina pectoris; I27.20 Pulmonary hypertension, unspecified; I49.3 Ventricular premature depolarization; K21.9 Gastro-esophageal reflux disease without esophagitis; F17.210 Nicotine dependence, cigarettes, uncomplicated; N18.30 Chronic kidney disease, stage 3 unspecified; Z71.6 Tobacco abuse counseling; Z79.82 Long term (current) use of aspirin; Z79.899 Other long term (current) drug therapy
CPT/HCPCS: 0241U; 36415; 71045; 71250; 76775; 80048; 80053; 81001; 82570; 82803; 83605; 83735; 83880; 83930; 83935; 84145; 84156; 84300; 84484; 85007; 85025; 85027; 85610; 85730; 87040; 87449; 87899; 92950; 93005; 93306; 94640; 97162; 99285; C1758; J0456; J0696; J1100; J1643; J1650; J1940; J2270; Q9957

== ENCOUNTER 2023-09-02 20:23 | Outpatient (BNV) | payer MEDICARE, OTHER, SELFPAY | END 2023-09-03 10:50 | PROVIDERS: Admitting Provider Student in an Organized Health Care Education/Training Program; Emergency Provider Internal Medicine; PCP Internal Medicine; Visit Provider Internal Medicine | DX: I36.1 Nonrheumatic tricuspid (valve) insufficiency (principal); I31.39 Other pericardial effusion (noninflammatory) | CPT/HCPCS: 93306 ==

== ENCOUNTER → 2023-09-02 20:23 | Outpatient (BNV) | payer MEDICARE, OTHER, SELFPAY | PROVIDERS: Admitting Provider Student in an Organized Health Care Education/Training Program; Emergency Provider Internal Medicine; PCP Internal Medicine; Visit Provider Surgery | DX: I31.39 Other pericardial effusion (noninflammatory) (principal) | CPT/HCPCS: 99222 ==

== ENCOUNTER → 2023-09-02 20:23 | Outpatient (BNV) | payer MEDICARE, OTHER, SELFPAY | PROVIDERS: Admitting Provider Student in an Organized Health Care Education/Training Program; Emergency Provider Internal Medicine; PCP Internal Medicine; Visit Provider Student in an Organized Health Care Education/Training Program | DX: I31.39 Other pericardial effusion (noninflammatory) (principal); E87.1 Hypo-osmolality and hyponatremia; N17.9 Acute kidney failure, unspecified; J96.01 Acute respiratory failure with hypoxia; I21.4 Non-ST elevation (NSTEMI) myocardial infarction; I50.9 Heart failure, unspecified | CPT/HCPCS: 99223; 99233; 99239 ==

== ENCOUNTER → 2023-09-02 20:23 | Outpatient (BNV) | payer MEDICARE, OTHER, SELFPAY | PROVIDERS: Admitting Provider Student in an Organized Health Care Education/Training Program; Emergency Provider Internal Medicine; PCP Internal Medicine; Visit Provider Internal Medicine | DX: I21.4 Non-ST elevation (NSTEMI) myocardial infarction (principal); U07.1 COVID-19; J96.01 Acute respiratory failure with hypoxia | CPT/HCPCS: 99223; 99233 ==

== ENCOUNTER → 2023-09-02 20:23 | Outpatient (BNV) | payer MEDICARE, OTHER, SELFPAY | PROVIDERS: Admitting Provider Student in an Organized Health Care Education/Training Program; Emergency Provider Internal Medicine; PCP Internal Medicine; Visit Provider Internal Medicine | DX: U07.1 COVID-19 (principal); J96.01 Acute respiratory failure with hypoxia | CPT/HCPCS: 99499 ==